=== PATIENT | male | born 1960 | race Caucasian/White ===

== ENCOUNTER 2022-02-18 10:21 | Observation (INO) | payer SELFPAY ==
[2022-02-18] VITALS (12 sets, daily range): BP systolic 138–163; BP diastolic 99–135; PULSE 99–129; RESP 18–28; TEMP 36.4–36.9; O2SAT 93–99; BMI 24.2; BMI 22.6
--- NOTE | 2022-02-18 11:04 | RAD_ITS ---
STUDY: X-RAY CHEST REASON FOR EXAM: Male, 61 years old. Respiratory distress, expiratory wheezing TECHNIQUE: AP and lateral views of the chest. COMPARISON: None. FINDINGS: EKG electrodes are seen. There is hyperinflation of the lungs consistent with chronic obstructive lung disease (COPD). There is no demonstrated pleural abnormality. Normal size heart. Normal mediastinum and cynthia. Normal visualized pulmonary arteries. There is atherosclerotic tortuosity of the aortic arch and descending thoracic aorta. There are diffuse degenerative changes of the visualized thoracic spine. Normal visualized ribs, clavicles, and shoulders. There is no demonstrated abnormality of the visualized soft tissue structures of the upper abdomen. RAD/Chest PA and Lateral IMPRESSION: Hyperinflation. Decreased bronchovascular markings suggestive of a emphysematous change. Electronically Signed: Bolivar Rose MD at 12:18 EDT ,
--- NOTE | 2022-02-18 11:04 | EKG12_ITS ---
Test Reason : SOB Blood Pressure : / mmHG Vent. Rate : 116 BPM Atrial Rate : 116 BPM P-R Int : 130 ms QRS Dur : 088 ms QT Int : 328 ms P-R-T Axes : 074 047 069 degrees QTc Int : 455 ms Sinus tachycardia Otherwise normal ECG Confirmed by EZEQUIEL BUSCH, EB ([id number]), city editor ALBERTA MAGUIRE ([id number]) on 02/21/2022 9:27:23 AM Referred By: JESÚS Confirmed By:EB NIEVES MD
[2022-02-18] MEDS: Albuterol 2.5 MG/3 ML VIAL.NEB. INHALATION ×3 (11:24→12:41)
[2022-02-18] MEDS: Ipratropium/Albuterol Sulfate 3 ML AMPUL.NEB INHALATION ×2 (11:24→19:25)
[2022-02-18 11:27] LABS: Absolute Lymphocyte Count 1.05 X10^3/uL (0.83-4.51); Absolute Neutrophil Count 5.1 X10^3/uL (2.0-7.7); Basophil# 0.04 X10^3/uL; Basophil% 0.6 % (0-1); Eosinophil# 0.02 X10^3/uL; Eosinophils% 0.3 % (0-5); Hemoglobin 18.3 g/dL (13.0-16.5); Lymphocyte # 1.05 X10^3/ul (0.83-4.51); Lymphocyte % 15.7 % (19-41); Mean Corp Hgb Conc 33.9 g/dL (32-36); Mean Corpuscular Hgb 30.5 pg (27.0-32.0); Mean Platelet Vol. 9.4 fl (6.2-12.0); Monocyte% 7.5 % (0-10); NRBC Flagged by Analyzer 0 % (0-5); Neutrophil # 5.07 X10^3/uL (2.7-7.7); Neutrophil % 75.6 % (47-70); POSITIVE COUNT YES; RBC Distribution Width CV 13.1 % (11.6-14.6); RBC Distribution Width SD 42.6 fl (35.1-43.9); White Blood Count 6.7 K/mm3 (4.4-11.0)
--- NOTE | 2022-02-18 11:29 | ED.VIS.DYS ---
HPI History of Present Illness Chief Complaint: Shortness of Breath Informant: patient Onset/Context/Timing Onset: Weeks Context: gradual Timing: Continuous and Waxes and wanes Quality: Positive for Dyspnea on exertion and Wheezing; Negative for Orthopnea and PND Current Severity: Moderate Maximum Severity: Severe Worsened by: - (Walking across the room) Relieved by: Nothing Associated Symptoms cough and clear sputum; Negative for rhinorrhea, post nasal drip, ear pain, fever, sore throat, subjective, chills, sweats or other Chest Pain: Positive for None Narrative Narrative: Patient is a 61-year-old male who was a smoker of approximately 1/2 pack/day since age of 30. He quit 3 months ago. He has not seen a doctor since the age of 6. He is on no medications and has no allergies to his knowledge. He states his friend encouraged him to come in because he appeared in distress. He is agreeable. He has not been vaccinated. He states he did not get vaccinated he was concerned to take his lungs problem worse. He denies history of leg pain, swelling discoloration. He denies night sweats or weight loss. He denies GI symptoms. He states he is concerned because he is not able to care for himself because he cannot walk across the room. He has to sit on a milk cart to take a shower because he is fearful that will fall. He has not been eating much. PE Risk Factors: Negative for Cancer, OCP + Smoking + > 35, Prior DVT or PE, Recent immobilization, Recent surgery and Recent travel Prior similar symptoms: No Recent Illness/Hospitalization: No PFSH PFSH Medical History (Updated 02/18/22 @ 14:[address] Mike Peralta MD) Hx of bronchitis Medical History no medical history no medical history Home Medications NK 02/18/22 [History Last Taken Unknown] Allergy/AdvReac Type Severity Reaction Status Date / Time Penicillins AdvReac NEEDS Verified 02/18/22 11:31 FOLLOW-UP Surgical History no surgical history no surgical history Social History (Updated 02/18/22 @ 11:[address] Mike Peralta MD) household members: none Smoking Status: Former smoker substance use type: does not use ROS ROS ED Constitutional Constitutional ED: Denies chills, fever(s), sweats or weight loss Eyes Eyes: Denies blurry vision, change in vision or diplopia ENT ENT ED: Denies ear pain, rhinorrhea or sore throat Cardiovascular Cardiovascular: Denies chest pain, orthopnea, palpitations, paroxysmal nocturnal dyspnea or racing heartbeat Respiratory/Chest Respiratory/Chest: Reports cough, dyspnea, dyspnea on exertion and sputum; Denies orthopnea or paroxysmal nocturnal dyspnea Gastrointestinal Gastrointestinal: Denies abdominal pain, diarrhea, melena, nausea or vomiting Genitourinary Genitourinary ED: Denies dysuria, hematuria or urinary frequency Musculoskeletal Musculoskeletal: Denies arthralgias, back pain, myalgias or neck pain Integumentary Denies rash Neurologic Neurologic: Denies headache(s), paresthesias or weakness Endocrine Endocrinology: Denies polydipsia, polyphagia or polyuria Hematologic/Lymphatic Hematologic/Lymphatic: Denies easy bleeding or easy bruising EXAM Physical Exam Const Vital Signs: 02/18/22 10:23 02/18/22 11:24 02/18/22 11:35 Temperature 98.1 F Temperature Source Temporal Pulse Rate 129 H 112 H Respiratory Rate 18 26 H Respiratory Effort Short of Breath Labored Short of Breath Labored Respiratory Depth Shallow Respiratory Pattern Tachypnea Tachypnea Blood Pressure 163/135 H Blood Pressure Mean 144 Pulse Ox 97 96 Oxygen Delivery Method Room Air Room Air Positive well nourished and well developed General Appearance ED: well developed; Negative for NAD or pallor HEENT Reports TM's clear and dry mucous membranes HEENT Narrative: Nares patent. Uvula midline. No erythema or exudate posterior pharynx. atraumatic Tympanic Membrane ED: Yes TM's clear Mouth ED: Yes dry mucous membranes Mouth: dry mucous membranes Eyes PERRL and EOMs intact bilaterally General Eye ED: Negative for pale conjunctiva or scleral icterus Neck no lymphadenopathy, supple, no meningeal signs and no JVD Neck Narrative: Trachea midline. No in-store extra stridor. No carotid bruits. Resp No normal respiratory effort and No clear to auscultation bilaterally Resp Narrative: There is expiratory wheezing with extremely delayed expiratory phase. Patient is using accessory muscles. There may be slight retractions. Auscultation: wheezes and diminished lung sounds; Negative for rales or rhonchi Cardio regular rhythm, S1 normal heart sound, S2 normal heart sound and no murmurs Rate: tachycardic GI non-tender, non-distended and no masses Auscultation: normoactive bowel sounds Palpation: soft Back/Spine no CVA tenderness and normal to inspection Extremity Negative for normal to inspection Extremity Narrative: Patient has clubbing noted. General Extremety ED: Negative for edema or tenderness General Extremity: Negative for edema Neuro oriented x3 and CN's II-XII intact bilaterally Christen Coma Scale: document GCS findings Spontaneous Obeys Commands Oriented 15 Sensorium / Orientation: alert Psych mental status grossly normal Thought Process: normal thought process Skin no wounds Skin Narrative: Patient has questionable lenticular rash. Cap refill is slightly delayed. General Skin Exam: Negative for jaundice or pallor Lesions: no lesions MDM MDM MDM Narrative Medical decision making narrative: Suspect patient has exacerbation of COPD. He states he had pneumonia 25 years ago. This is in the differential as well. With him having symptoms for weeks/month doubt pulmonary embolus. He was treated with albuterol, DuoNeb, methylprednisolone and appropriate labs were obtained to assess white count, rule out anemia, assess renal function and electrolytes especially since he reports poor p.o. intake. Venous blood gas was obtained to assess for CO2 retention. Chest x-ray to evaluate for pneumonia versus COPD doubt pneumothorax. EKG was obtained to rule out acute cardiac ischemia which is unlikely. Patient did not desaturate with walking from his room to the social workers office which is approximately 50 feet however his heart rate went to 136 he had labored breathing with a rate of 32 and was in obvious distress. Feel patient has COPD that is been undiagnosed with an acute exacerbation and he will require in-hospital treatment and consultation with case management regarding appropriate discharge planning. Lab Data Attestation: I reviewed the patient's lab results. Lab results narrative: White count and differential are unremarkable. Hemoglobin is elevated most likely due to polycythemia vera secondary, 30-year history of smoking. Lactate elevated 2.2. This is in a likely due to his respiratory distress. Patient has evidence of hyponatremia. This will need a work-up since he is on no medication. Labs: Laboratory Results - last 24 hr 02/18/22 02/18/22 02/18/22 11:20 11:20 11:20 WBC 6.7 RBC 6.00 Hgb 18.3 H* Hct 54.0 MCV 90.0 MCH 30.5 MCHC 33.9 RDW Std Deviation 42.6 RDW Coeff of [place] 13.1 Plt Count MPV 9.4 Immature Gran % (Auto) 0.300 Neut % (Auto) 75.6 H Lymph % (Auto) 15.7 L [place] % (Auto) 7.5 Eos % (Auto) 0.3 Baso % (Auto) 0.6 Absolute Neuts (auto) 5.1 Absolute Lymphs (auto) 1.05 Nucleated RBC % 0 Diff Path Review May foll Platelet Estimate ADEQUATE Sodium Cancelled Potassium Cancelled Chloride Cancelled Carbon Dioxide Cancelled Anion Gap Cancelled BUN Cancelled Creatinine Cancelled Estim Creat Clear Calc Cancelled Est GFR (MDRD) Af Amer Cancelled Est GFR (MDRD) Non-Af Cancelled BUN/Creatinine Ratio Cancelled Glucose Cancelled Lactic Acid 2.2 H* Calcium Cancelled 02/18/22 11:41 WBC RBC Hgb Hct MCV MCH MCHC RDW Std Deviation RDW Coeff of [place] Plt Count MPV Immature Gran % (Auto) Neut % (Auto) Lymph % (Auto) [place] % (Auto) Eos % (Auto) Baso % (Auto) Absolute Neuts (auto) Absolute Lymphs (auto) Nucleated RBC % Diff Path Review Platelet Estimate Sodium 129 L Potassium 4.3 Chloride 95 L Carbon Dioxide 24.0 Anion Gap 10 BUN 10 Creatinine 1.21 Estim Creat Clear Calc 59.94 Est GFR (MDRD) Af Amer 78 Est GFR (MDRD) Non-Af 65 BUN/Creatinine Ratio 8.3 L Glucose 105 Lactic Acid Calcium 9.4 ABG Data ABG results: ABG 02/18/22 11:38 Specimen Type CARYN VBG pH 7.36 VBG pO2 33 VBG HCO3 24 VBG Total CO2 25 VBG O2 Sat (Calc) 60 VBG Base Excess -1 POC Mix VBG pCO2 Pt Tmp 42.3 O2 Delivery Device Room Air Radiography Chest X-Ray - ED: 2 View and Read by ED Physician (X-ray reveals hyperaeration and emphysematous changes. Cardiac silhouette size normal. Perihilar regions unremarkable. [place] structures are unremarkable. Interpreted by me at 1213) Diagnostic Testing: Clinical Impression(s) from Imaging Studies Chest X-Ray 02/18/22 11:04 IMPRESSION: Hyperinflation. Decreased bronchovascular markings suggestive of a emphysematous change. Electronically Signed: Bolivar Rose MD at 12:18 EDT , EKG Initial EKG: Attestation: I personally reviewed and interpreted this EKG as follows: Interpretation: Sinus Tachycardia (Ventricular rate is 116. OK interval is 130 ms. Cures duration 88 ms. QT duration 320 ms. [place] normal. Other than the tachycardia the EKG is unremarkable. There is motion artifact noted.) Discharge Plan Dx/Rx/DC Orders Clinical Impression: Acute exacerbation of COPD with asthma, Adult failure to thrive, Acidosis, lactic, Sinus tachycardia seen on equipment monitor phototypesetting Disposition Disposition: Acute Care Hospital [facility]
[2022-02-18] MEDS: MethylPREDNISolone 125 MG/2 ML Vial IV (11:32)
[2022-02-18 11:46] LABS: Blood Gas Specimen Type VEN; O2 Delivery Device Room Air; VBG BASE EXCESS -1 mmol/L (-1.0-3.5); VBG Bicarbonate 24 mmol/L (22-26); VBG PO2 33 mmHg (25-40); VBG SO2 60 % (50-70); VBG TCO2 25 mmol/L (23-33); VBG pCO2 42.3 mmHg (41-51); VBG pH 7.36 (7.32-7.42)
[2022-02-18 11:51] LABS: Lactic Acid 2.2 mmol/L (0.4-1.9)
[2022-02-18 11:53] LABS: Platelet Estimate ADEQUATE (ADEQ)
[2022-02-18 12:03] LABS: Anion Gap 10 (5-15); BUN 10 mg/dL (7-18); BUN/Creat Ratio 8.3 RATIO (10-20); Calcium,Total 9.4 mg/dL (8.5-10.1); Chloride 95 mmol/L (98-107); Creatinine, Serum 1.21 mg/dL (0.70-1.30); EST Glomerular Filtration Rate 65 mL/min (>60); Est Glom Filt Rate - Afr Amer 78 mL/min (>60); Estimated Creatinine Clearance 59.94 ml/min; Glucose 105 mg/dL (74-106); Potassium 4.3 mmol/L (3.5-5.1); Sodium Level 129 mmol/L (136-145)
--- NOTE | 2022-02-18 14:21 | HP.PCM.HOS_ITS ---
HPI - General General Date of Admission: 02/18/22 HPI Narrative VANIA LAM, is a 61 M with a PMH as outlined who presents via the ED on 02/18/2022 with a complaint of shortness of breath for several weeks, which had gradually worsened. He hasnt seen a doctor for many years, and has an extensive smoking history. HE quit smoking about 3 months ago. He admitted to wheezing and said his shortness of breath had worsened, with him getting concerned that he couldnt even care for himself and had to sit on milk carton to even take a shower as he was scared he might fall. He has no known diagnosis of COPD because he hasnt seen a doctor since age 6. He admitted to cough productive of clear sputum, but denied chest pain, dizziness, nausea or vomiting. Attempts to ambulate him in the ED resulted in worsening tachypnea and tachycardia, though he wasn't hypoxic. Vitals at time of review were temp of 98.1F, DE of 112, RR of 26 and BP of 163/135. HE was on room air and saturating at 96%. CBC resulted with wbc of 6.7, hb of 18.3, and due to platelet clumping, no platelet figure was provided. Chemistry showed sodium of 129 with bicarb of 24 and Cr of 1.21. CXR showed emphysematous changes. He is being admitted to be managed for probable acute COPD exacerbation. [facility] Medical History (Updated 02/18/22 @ 14:[address] Mike Peralta MD) Former smoker Hx of bronchitis Medical History no medical history Home Medications NK 02/18/22 [History Last Taken Unknown] Allergy/AdvReac Type Severity Reaction Status Date / Time Penicillins AdvReac NEEDS Verified 02/18/22 11:31 FOLLOW-UP Surgical History (Updated 02/18/22 @ 15:31 by Pam Rodriguez) History of tonsillectomy Surgical History no surgical history Social History (Updated 02/18/22 @ 11:[address] Mkie Peralta MD) household members: none Smoking Status: Former smoker substance use type: does not use ROS Constitutional Constitutional: Reports anorexia, fatigue, malaise and weakness; Denies chills or fever(s) Eyes Eyes: Denies change in vision ENT HEENT: Denies dysphagia, headache(s), nasal discharge, sinus pressure or sore throat Cardiovascular Cardiovascular: Reports dyspnea on exertion, palpitations and rapid heart rate; Denies chest pain, edema, lightheadedness, orthopnea, paroxysmal nocturnal dyspnea or syncope Respiratory/Chest Respiratory/Chest: Reports cough, dyspnea, productive cough, shortness of breath at rest, shortness of breath with exertion and wheezing; Denies excessive phlegm production or hemoptysis Gastrointestinal Gastrointestinal: Denies abdominal pain, coffee ground emesis, diarrhea, dyspepsia, nausea or vomiting Genitourinary Genitourinary: Denies burning urination Musculoskeletal Musculoskeletal: Denies arthralgias Neurologic Neurologic: Denies confusion, dizziness, focal weakness, headache(s), numbness, seizures or syncope Psychiatric Psychiatric: Denies anxiety or depression Endocrine Endocrinology: Denies change in body appearance Hematologic/Lymphatic Hematologic/Lymphatic: Denies anemia Allergic/Immunologic Allergic/Immunologic: Denies asthma Vital Signs Vital Signs Vital Signs: 02/18/22 10:23 02/18/22 11:24 02/18/22 11:35 Temperature 98.1 F Temperature Source Temporal Pulse Rate 129 H 112 H Respiratory Rate 18 26 H Respiratory Effort Short of Breath Labored Short of Breath Labored Respiratory Depth Shallow Respiratory Pattern Tachypnea Tachypnea Blood Pressure 163/135 H Blood Pressure Mean 144 Pulse Ox 97 96 Oxygen Delivery Method Room Air Room Air Weight Weight: 154 lb 12.8 oz Body Mass Index (BMI) 24.2 Physical Exam Const alert, oriented x3 and no apparent distress General Appearance: cooperative HEENT normocephalic, head/scalp atraumatic, hearing grossly normal bilaterally and moist oral mucous membranes Eyes PERRL, EOMs intact bilaterally and conjunctivae normal Neck no lymphadenopathy, supple and no JVD Resp Resp Narrative: tachypneic, diminished breath sounds bibasally, mild wheezes, no crackles. On room air. Cardio regular rhythm, S1 normal heart sound, S2 normal heart sound and no murmurs Cardio Narrative: tachycardic GI normal to inspection, nondistended, normoactive bowel sounds, soft to palpation, non-tender and non-distended Extremity normal to inspection, full ROM and no clubbing, cyanosis or edema Extremity Narrative: has extensive clubbing of all extremities Peripheral Pulses: Yes pulses 2+ throughout Skin no rashes or lesions noted and no wounds Neuro oriented x3, CN's II-XII intact bilaterally and moves all extremities Sensorium / Orientation: awake and alert Psych affect normal Results Lab / Micro Data Result Diagrams: 02/18/22 11:20 02/18/22 11:41 Labs: Laboratory Results - last 24 hr 02/18/22 11:20: WBC 6.7, RBC 6.00, Hgb 18.3 H*, Hct 54.0, MCV 90.0, MCH 30.5, MCHC 33.9, RDW Std Deviation 42.6, RDW Coeff of [place] 13.1, Plt Count , MPV 9.4, Immature Gran % (Auto) 0.300, Neut % (Auto) 75.6 H, Lymph % (Auto) 15.7 L, [place] % (Auto) 7.5, Eos % (Auto) 0.3, Baso % (Auto) 0.6, Absolute Neuts (auto) 5.1, Absolute Lymphs (auto) 1.05, Nucleated RBC % 0, Diff Path Review March, Platelet Estimate ADEQUATE 02/18/22 11:20: Sodium Cancelled, Potassium Cancelled, Chloride Cancelled, Carbon Dioxide Cancelled, Anion Gap Cancelled, BUN Cancelled, Creatinine Cancelled, Estim Creat Clear Calc Cancelled, Est GFR (MDRD) Af Amer Cancelled, Est GFR (MDRD) Non-Af Cancelled, BUN/Creatinine Ratio Cancelled, Glucose Cancelled, Calcium Cancelled 02/18/22 11:20: Lactic Acid 2.2 H* 02/18/22 11:41: Sodium 129 L, Potassium 4.3, Chloride 95 L, Carbon Dioxide 24.0, Anion Gap 10, BUN 10, Creatinine 1.21, Estim Creat Clear Calc 59.94, Est GFR (MDRD) Af Amer 78, Est GFR (MDRD) Non-Af 65, BUN/Creatinine Ratio 8.3 L, Glucose 105, Calcium 9.4 ABG Data ABG results: ABG 02/18/22 11:38 Specimen Type CARYN VBG pH 7.36 VBG pO2 33 VBG HCO3 24 VBG Total CO2 25 VBG O2 Sat (Calc) 60 VBG Base Excess -1 POC Mix VBG pCO2 Pt Tmp 42.3 O2 Delivery Device Room Air Radiology Impression Chest X-Ray 02/18/22 11:04 IMPRESSION: Hyperinflation. Decreased bronchovascular markings suggestive of a emphysematous change. Electronically Signed: Bolivar Rose MD at 12:18 EDT , Assessment & Plan Assessment/Plan (1) Acute exacerbation of COPD with asthma: (2) Adult failure to thrive: (3) Acidosis, lactic: (4) Sinus tachycardia seen on front desk monitor: PLAN: #Acute COPD exacerbation * has a strong smoking history which points towards COPD * CXR showed hyperinflation and decreased bronchovascular markings suggestive of emphysematous changes * admit to med surg * Breathing treatments bronchodilators. IV Solu-Medrol 40 mg every 8 hours as needed * hydrate gently with IVF * get baseline 2D echo to rule out any cardiac pathology * will need pulmonary function tests to officially diagnose COPD * #lactic acidosis: due to dehydration from decreased intake. Should improve with hydration #Hyponatremia * Na is 129. Likely due to decreased intake also * hydrate with IVF; if it doesnt improve, will work up further with urine electrolytes and osmolality * #Polycythemia: Hb is 18.3, likely secondary polycythemia due to undiagnosed COPD. #Sinus tachycardia: likely due to shortness of breath. Expect that will improve with treatment for COPD #Elevated blood pressure * No known diagnosis of hypertension. Blood pressure elevated in the 160s in the ED. May also be due to acute shortness of breath * IV hydralazine as needed. If it does not improve, will start oral BP meds * DVT prophylaxis: lovenox Code status: full code * Patient counseled extensively about different types of CODE STATUS including full code, DNR CCA and DNR CCA. Patient elects to be full code. Total [id number] time 16 minutes. Charges/Coding Visit Charges OBSV E&M: 52134 Initial observation care L3 Procedures Hospitalists Procedures: 95058 Advncd Care Plan 30 Min
--- NOTE | 2022-02-18 14:44 | ED.RN ---
spo2 did not drop with ambulation but hr 138 and rr up to 38/min. pt did state that hasnt been able to go that far without stopping for a month aware and decision to admit.
--- NOTE | 2022-02-18 15:10 | ECHOD_ITS ---
Reason For Study: SOB Procedure This was a 2D Doppler, Color Flow transthoracic echocardiogram. The study was technically difficult. Exam performed portable in patient room. Left Ventricle Normal LV size. Left ventricular systolic function is normal. The estimated ejection fraction is 65 %. No evidence for diastolic dysfunction. No regional wall motion abnormalities noted. Right Ventricle Normal RV size. Normal systolic function. Atria Normal left atrium. Normal right atrium. No doppler evidence for ASD. Mitral Valve There is no mitral annular calcification. Normal mitral valve. Trivial mitral valve insufficiency. Tricuspid Valve Normal tricuspid valve. Trivial tricuspid valve insufficiency. Right ventricular systolic pressure estimated to be 31 mmHg. Aortic Valve Trisinus/trileaflet aortic valve. Mild focal aortic valve calcification. Pulmonic Valve The pulmonic valve is not well visualized. Great Vessels Mildly dilated aortic root. Pericardium/Pleural No pericardial effusion. MMode/2D Measurements & Calculations LVIDd: 3.9 cm IVSd: 0.83 cm Ao root diam: 4.2 cm LVIDs: 2.5 cm LVPWd: 1.0 cm RVDd: 2.7 cm FS: 37.3 % LAV(MOD-bp): 37.3 ml LVAd ap4: 22.9 cm2 LVAd ap2: 23.1 cm2 LAV(MOD-bp) Indexed: 20.6 ml/m2 LVLd ap4: 7.9 cm LVLd ap2: 7.2 cm LAV(MOD-sp2): 42.8 ml EDV(MOD-sp4): 56.0 ml EDV(MOD-sp2): 63.2 ml LAV(MOD-sp4): 30.8 ml EDV(sp4-el): 56.5 ml EDV(sp2-el): 62.6 ml LVAs ap4: 11.8 cm2 LVAs ap2: 13.1 cm2 LVLs ap4: 6.5 cm LVLs ap2: 6.4 cm ESV(MOD-sp4): 18.8 ml ESV(MOD-sp2): 23.8 ml ESV(sp4-el): 18.4 ml ESV(sp2-el): 22.5 ml EF(MOD-sp4): 66.4 % EF(MOD-sp2): 62.4 % EF(sp4-el): 67.5 % SV(MOD-sp4): 37.2 ml SV(MOD-sp2): 39.5 ml SV(sp4-el): 38.1 ml LA dimension(2D): 3.4 cm LA A4 area: 13.2 cm2 RA A4 area: 14.4 cm2 Doppler Measurements & Calculations MV E max all: 53.1 cm/sec Lat Peak E' All: 8.3 cm/sec Med Peak E' All: 5.6 cm/sec MV A max all: 69.1 cm/sec E/E' lat: 6.4 E/E' med: 9.4 MV E/A: 0.77 Ao V2 max: 111.2 cm/sec LV V1 max: 95.7 cm/sec PA V2 max: 95.2 cm/sec Ao max P.9 mmHg LV V1 max P.7 mmHg TR max all: 266.2 cm/sec TR max P.4 mmHg ECHO/Echo Complete Interpretation Summary The study was technically difficult. Left ventricular systolic function is normal. The estimated ejection fraction is 65 %. Trivial mitral valve insufficiency. Trivial tricuspid valve insufficiency. Mild focal aortic valve calcification. Mildly dilated aortic root. Right ventricular systolic pressure estimated to be 31 mmHg. No evidence for diastolic dysfunction. Ordering Physician: Jessica Payan Performed By: Kerry Kwong RDCS
--- NOTE | 2022-02-18 15:14 | CM.ED ---
RN CM Assessment Introduced role of RN CM to patient.? Patient is alert, oriented and able?to participate in RN CM Assessment. ?Care providers, pharmacy, and demographics verified. Admit Dx: OBS for Acute COPD Exac Re-Admit: No Barriers/Issues: Patient us uninsured, No medication coverage, does not have a PCP and no medical f/u throughout lifetime. Smoker for many years and quit approx 3 months ago. Has been having some difficulty with house chores and ADLs d/t SOB with minimal exertion. PCP: None, PCP list provided. Provided resources to [facility], [facility], [facility] contact. Specialists: None [facility] Insurance: None Rx Benefit: None? LNOK: Ronnie Payne LW/HPOA: None. AD information with rack card provided and informed can complete with inpatient. Living Arrangements:?Lives alone in a SSH, 4 steps to enter home and approx 10 steps to get to the basement where the laundry is. ADL?s: Independent with ambulation and ADLs, requiring to sit on a milk crate to bathe and occasionally will need help as it has become more difficult for him to do independently d/t SOB with minimal exertion. Needs assistance with IADLs- house work. Transportation: Patient drives, did not drive self to hospital this episode. DME: None HHC: None SNF: None Goal: Home and needs TBD- may need assistance with medication cost or if DME needed. DC PLAN: Home and needs TBD. ROSANNA Munguia
[2022-02-18 15:23] LABS: Reflex Lactate? Y
[2022-02-18] MEDS: 0.9% Normal Saline 1,000 ML 125 ML IV (15:47)
[2022-02-18 16:30] LABS: Troponin-I HS 9 pg/mL (3.0-78.0)
[2022-02-18 16:46] LABS: Lactic Acid 2.6 mmol/L (0.4-1.9)
[2022-02-18 18:55] LABS: Troponin-I HS 10 pg/mL (3.0-78.0)
[2022-02-18 22:53] LABS: Troponin-I HS 10 pg/mL (3.0-78.0)
[2022-02-19] VITALS (18 sets, daily range): BP systolic 132–143; BP diastolic 83–101; PULSE 73–114; RESP 18–22; TEMP 36.3–37.2; O2SAT 95–98
[2022-02-19] MEDS: 0.9% Normal Saline 1,000 ML 125 ML IV (00:13)
[2022-02-19 05:42] LABS: Absolute Lymphocyte Count 0.65 X10^3/uL (0.83-4.51); Absolute Neutrophil Count 6.3 X10^3/uL (2.0-7.7); Basophil# 0.01 X10^3/uL; Basophil% 0.1 % (0-1); Hematocrit 43.4 % (40-54); Lymphocyte # 0.65 X10^3/ul (0.83-4.51); Lymphocyte % 8.8 % (19-41); Mean Corp Hgb Conc 34.6 g/dL (32-36); Mean Corpuscular Hgb 31.4 pg (27.0-32.0); Mean Corpuscular Volume 90.8 fL (80-94); Mean Platelet Vol. 8.5 fl (6.2-12.0); Monocyte% 5.4 % (0-10); NRBC Flagged by Analyzer 0 % (0-5); Neutrophil # 6.32 X10^3/uL (2.7-7.7); Neutrophil % 85.3 % (47-70); Platelet Count 273 K/mm3 (150-450); RBC Distribution Width CV 12.9 % (11.6-14.6); RBC Distribution Width SD 42.9 fl (35.1-43.9); Red Blood Count 4.78 M/mm3 (4.6-6.2); White Blood Count 7.4 K/mm3 (4.4-11.0)
[2022-02-19 06:06] LABS: Anion Gap 2 (5-15); BUN 10 mg/dL (7-18); BUN/Creat Ratio 12.8 RATIO (10-20); Calcium,Total 8.3 mg/dL (8.5-10.1); Chloride 100 mmol/L (98-107); Creatinine, Serum 0.78 mg/dL (0.70-1.30); EST Glomerular Filtration Rate 107 mL/min (>60); Est Glom Filt Rate - Afr Amer 129 mL/min (>60); Estimated Creatinine Clearance 95.09 ml/min; Glucose 133 mg/dL (74-106); Potassium 5.4 mmol/L (3.5-5.1); Sodium Level 130 mmol/L (136-145)
[2022-02-19] MEDS: Ipratropium/Albuterol Sulfate 3 ML AMPUL.NEB INHALATION ×4 (07:39→18:31)
--- NOTE | 2022-02-19 08:40 | NURSING ---
pt refused kayexelate at this time requesting he takes it after breakfast.
[2022-02-19] MEDS: Enoxaparin 40 MG/0.4 ML Syringe SC (09:55)
[2022-02-19] MEDS: Sodium Polystyrene Sulfonate 15 GM/60 ML UDC 30 GM PO (09:55)
--- NOTE | 2022-02-19 11:36 | PN.HOSP_ITS ---
Subjective Subjective Patient seen and examined. He feels much better and has no active complaints. Review of systems is otherwise negative. His breathing has improved significantly Objective Data Objective Data Vital Signs: Vital Signs Temp Pulse Resp BP Pulse Ox 97.4 F L 85 18 138/93 H 98 02/19/22 08:29 02/19/22 08:29 02/19/22 08:33 02/19/22 08:29 02/19/22 08:29 Oxygen Delivery Method Room Air Weight: 149 lb 0.52 oz Body Mass Index (BMI) 22.6 Intake & Output: Intake and Output for Last 24 Hours 02/17/22 02/18/22 02/19/22 23:59 23:59 23:59 Intake Total 1700 / 1700 1600.00 / 1600.00 Output Total 1200 / 1200 Balance 1700 / 1300 400.00 / 400.00 Lab / Micro Data Result Diagrams: 02/19/22 05:30 02/19/22 05:30 Labs: Laboratory Results - last 24 hr 02/18/22 11:20: WBC 6.7, RBC 6.00, Hgb 18.3 H*, Hct 54.0, MCV 90.0, MCH 30.5, MCHC 33.9, RDW Std Deviation 42.6, RDW Coeff of Carroll 13.1, Plt Count , MPV 9.4, Immature Gran % (Auto) 0.300, Neut % (Auto) 75.6 H, Lymph % (Auto) 15.7 L, [place] % (Auto) 7.5, Eos % (Auto) 0.3, Baso % (Auto) 0.6, Absolute Neuts (auto) 5.1, Absolute Lymphs (auto) 1.05, Nucleated RBC % 0, Diff Path Review March, Platelet Estimate ADEQUATE 02/18/22 11:20: Lactic Acid 2.2 H* 02/18/22 11:41: Sodium 129 L, Potassium 4.3, Chloride 95 L, Carbon Dioxide 24.0, Anion Gap 10, BUN 10, Creatinine 1.21, Estim Creat Clear Calc 59.94, Est GFR (MDRD) Af Amer 78, Est GFR (MDRD) Non-Af 65, BUN/Creatinine Ratio 8.3 L, Glucose 105, Calcium 9.4 02/18/22 15:45: Lactic Acid 2.6 H* 02/18/22 15:45: Troponin I High Sens 9 02/18/22 18:03: Troponin I High Sens 10 02/18/22 22:00: Troponin I High Sens 10 02/19/22 05:30: WBC 7.4, RBC 4.78, Hgb 15.0, Hct 43.4, MCV 90.8, MCH 31.4, MCHC 34.6, RDW Std Deviation 42.9, RDW Coeff of Carroll 12.9, Plt Count 273, MPV 8.5, Immature Gran % (Auto) 0.400, Neut % (Auto) 85.3 H, Lymph % (Auto) 8.8 L, [place] % (Auto) 5.4, Eos % (Auto) 0.0, Baso % (Auto) 0.1, Absolute Neuts (auto) 6.3, Absolute Lymphs (auto) 0.65 L, Nucleated RBC % 0 02/19/22 05:30: Sodium 130 L, Potassium 5.4 H, Chloride 100, Carbon Dioxide 28.0, Anion Gap 2 L, BUN 10, Creatinine 0.78, Estim Creat Clear Calc 95.09, Est GFR (MDRD) Af Amer 129, Est GFR (MDRD) Non-Af 107, BUN/Creatinine Ratio 12.8, Glucose 133 H, Calcium 8.3 L ABG Data ABG results: ABG 02/18/22 11:38 Specimen Type CARYN VBG pH 7.36 VBG pO2 33 VBG HCO3 24 VBG Total CO2 25 VBG O2 Sat (Calc) 60 VBG Base Excess -1 POC Mix VBG pCO2 Pt Tmp 42.3 O2 Delivery Device Room Air Radiography Diagnostic Testing: Radiology Impression Chest X-Ray 02/18/22 11:04 IMPRESSION: Hyperinflation. Decreased bronchovascular markings suggestive of a emphysematous change. Electronically Signed: Bolivar Rose MD at 12:18 EDT , Echocardiogram 02/18/22 15:10 Interpretation Summary The study was technically difficult. Left ventricular systolic function is normal. The estimated ejection fraction is 65 %. Trivial mitral valve insufficiency. Trivial tricuspid valve insufficiency. Mild focal aortic valve calcification. Mildly dilated aortic root. Right ventricular systolic pressure estimated to be 31 mmHg. No evidence for diastolic dysfunction. Ordering Physician: Jessica Payan Performed By: Kerry Kwong RDCS Physical Exam Const alert, oriented x3 and no apparent distress General Appearance: cooperative HEENT normocephalic, head/scalp atraumatic, hearing grossly normal bilaterally and moist oral mucous membranes Head and Scalp: normocephalic Eyes PERRL, EOMs intact bilaterally and conjunctivae normal Neck no lymphadenopathy, supple and no JVD Resp Resp Narrative: tachypneic, diminished breath sounds bibasally, mild wheezes, no crackles. On room air. Cardio regular rate, regular rhythm, S1 normal heart sound, S2 normal heart sound and no murmurs GI normal to inspection, nondistended, normoactive bowel sounds, soft to palpation, non-tender and non-distended Extremity normal to inspection, full ROM and no clubbing, cyanosis or edema Extremity Narrative: has extensive clubbing of all extremities Peripheral Pulses: Yes pulses 2+ throughout Skin no rashes or lesions noted and no wounds Neuro oriented x3, CN's II-XII intact bilaterally and moves all extremities Sensorium / Orientation: awake and alert Psych affect normal Assessment & Plan Assessment/Plan (1) Acute exacerbation of COPD with asthma: (2) Adult failure to thrive: (3) Acidosis, lactic: (4) Sinus tachycardia seen on circuitry negative inspector: PLAN: #Acute COPD exacerbation * feels much better today * on breathing treatment wtih bronchodilators * titrate oxygen to maintain sats >90% * 2D echo:: * will need follow up with pulmo on outpatient basis to have a formal PFT test. * Breathing treatments bronchodilators. IV Solu-Medrol 40 mg every 8 hours as needed * * #lactic acidosis: went up slightly but patient is sable. Will monitor. #Hyperkalemia: Potassium is 5.4. Will give Kayexalate and trend. #Hyponatremia * Na is up to 130 * #Polycythemia: resolved. Was likely due to dehydration. Hb is down to 15 now. #Sinus tachycardia: resolved. #Elevated blood pressure * No known diagnosis of hypertension. Blood pressure elevated in the 160s in the ED. May also be due to acute shortness of breath * IV hydralazine as needed. If it does not improve, will start oral BP meds * DVT prophylaxis: lovenox Code status: full code * Charges/Coding Visit Charges Inpatient E&M: 05300 Subs Hosp L2
[2022-02-19 13:04] LABS: Pathologist Review Reviewed
--- NOTE | 2022-02-19 13:04 | CASEMGMT ---
RADU NUNEZ and COMMUTER PILOT in to pt room. Discussed dc planning. Pt has not yet worked with therapy d/t his son visiting, therapy to come back to work with pt. Pt does not feel at this time he may need any homegoing services but can confirm after therapy session. Pt on RA. RADU NUNEZ to follow.
--- NOTE | 2022-02-19 13:17 | CASEMGMT ---
Social Work Note MAX updated that pt had questions regarding Medicaid and Social Security. MAX and RN CM in to speak with pt. SW introduced self and role at [facility]. Pt states that his son Nghia who resides in [place] was just at [facility] but states he left to began his [address] back to [place]. Pt states that he and his son have been in contact with [employer], [employer], [employer], and was informed that the tungsten refiner at [facility] will be the best person that can assist pt in getting Medicaid. SW informed pt that this worker can provide him with Medicaid Application and if he completes application while at [facility], then this worker can fax in application to [facility]. Pt states well that is a start. SW provided pt with Medicaid Application. SW also spoke with pt regarding Social Security. SW informed pt that there is a Social Security Office in [place] and provided pt with contact information for Social Security Office. SW spoke with pt about his previous functioning. Pt states that he has noticed that he has been short of breath for some time now. 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 Pt states that he was on unemployment and had a good savings to live off of. Pt states that he has food in his home, still drives and has a vehicle, and states that he has running water, electric, etc in the home. Pt states that he is a little behind in his rent but states that he will be caught up in a week. Pt states that he has lived at his current place for six years and his landlord is helping him out. Pt states that he states he feels better and that his shortness of breath has improved. 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 Pt states that his son went to his home and did a good cleaning and pt states he plans on keeping it clean when he returns home. MAX provided pt with additional financial resources including HCAP application, Prescription assistance, and [employer]. Per previous notes, pt was also provided information on Kayleigh Gonsalez, [employer] and [facility] contact. Pt denied additional needs or concerns at this time. Gina Carmen REGISTERED NURSE BONE MARROW TRANSPLANT, PRINTED CIRCUIT BOARD ASSEMBLY REPAIRER
[2022-02-19] MEDS: 0.9% Saline Lock 10 ML Syringe IV ×2 (14:25→21:41)
--- NOTE | 2022-02-19 14:42 | CASEMGMT ---
Pt screened with [facility] Palliative Care Screening Tool due to COPD exac, pt did not meet criteria.
[2022-02-20] VITALS (12 sets, daily range): BP systolic 137–147; BP diastolic 94–104; PULSE 74–111; RESP 16–20; TEMP 36.4–37.1; O2SAT 84–99
[2022-02-20] MEDS: 0.9% Saline Lock 10 ML Syringe IV (05:28)
[2022-02-20 06:47] LABS: Absolute Lymphocyte Count 0.62 X10^3/uL (0.83-4.51); Absolute Neutrophil Count 7.6 X10^3/uL (2.0-7.7); Hematocrit 43.4 % (40-54); Hemoglobin 14.6 g/dL (13.0-16.5); Lymphocyte # 0.62 X10^3/ul (0.83-4.51); Lymphocyte % 7.1 % (19-41); Mean Corp Hgb Conc 33.6 g/dL (32-36); Mean Corpuscular Hgb 31.3 pg (27.0-32.0); Mean Corpuscular Volume 92.9 fL (80-94); Mean Platelet Vol. 9.1 fl (6.2-12.0); Monocyte# 0.44 X10^3/uL; NRBC Flagged by Analyzer 0 % (0-5); Neutrophil # 7.64 X10^3/uL (2.7-7.7); Platelet Count 280 K/mm3 (150-450); RBC Distribution Width CV 13.2 % (11.6-14.6); RBC Distribution Width SD 44.8 fl (35.1-43.9); Red Blood Count 4.67 M/mm3 (4.6-6.2); White Blood Count 8.8 K/mm3 (4.4-11.0)
[2022-02-20 07:11] LABS: Anion Gap 3 (5-15); BUN 10 mg/dL (7-18); BUN/Creat Ratio 13.4 RATIO (10-20); Calcium,Total 8.4 mg/dL (8.5-10.1); Chloride 101 mmol/L (98-107); Creatinine, Serum 0.74 mg/dL (0.70-1.30); EST Glomerular Filtration Rate 113 mL/min (>60); Est Glom Filt Rate - Afr Amer 137 mL/min (>60); Estimated Creatinine Clearance 100.23 ml/min; Glucose 140 mg/dL (74-106); Potassium 4.1 mmol/L (3.5-5.1); Sodium Level 136 mmol/L (136-145)
[2022-02-20] MEDS: Ipratropium/Albuterol Sulfate 3 ML AMPUL.NEB INHALATION (07:11)
--- NOTE | 2022-02-20 09:36 | DS.PCM_ITS ---
Providers Date of Admission: 02/18/22 Primary Care Physician: No Primary Care Phys Reason For Visit: ACUTE COPD EXACERBATION Diagnosis Discharge Diagnosis (1) Acute exacerbation of COPD with asthma: Status: Chronic Code(s): J44.1 - Chronic obstructive pulmonary disease with (acute) exacerbation; J45.901 - Unspecified asthma with (acute) exacerbation (2) Adult failure to thrive: Status: Acute Code(s): R62.7 - Adult failure to thrive (3) Acidosis, lactic: Status: Acute Code(s): E87.2 - Acidosis (4) Sinus tachycardia seen on nurse monitoring: Status: Acute Code(s): R00.0 - Tachycardia, unspecified Medications at Discharge Home Medications albuterol sulfate 1 inh INHALATION Q6H PRN #8.5 g 02/20/22 prednisone 40 mg PO DAILY #10 tab 02/20/22 tiotropium bromide 1 cap INHALATION DAILY #30 inh 02/20/22 Hospital Course Operations None Procedures 2-D Echocardiogram Summary of Care Provided Minutes Spent on Discharge: 40 Hospital Course: VANIA LAM, is a 61 M with a H as outlined who presents via the ED on 02/18/2022 with a complaint of shortness of breath for several weeks, which had gradually worsened. He hasnt seen a doctor for many years, and has an extensive smoking history. HE quit smoking about 3 months ago. He admitted to wheezing and said his shortness of breath had worsened, with him getting concerned that he couldnt even care for himself and had to sit on milk carton to even take a shower as he was scared he might fall. He has no known diagnosis of COPD because he hasnt seen a doctor since age 6. He admitted to cough productive of clear sputum, but denied chest pain, dizziness, nausea or vomiting. Attempts to ambulate him in the ED resulted in worsening tachypnea and tachycardia, though he wasn't hypoxic. Vitals at time of review were temp of 98.1F, MN of 112, RR of 26 and BP of 163/135. HE was on room air and saturating at 96%. CBC resulted with wbc of 6.7, hb of 18.3, and due to platelet clumping, no platelet figure was provided. Chemistry showed sodium of 129 with bicarb of 24 and Cr of 1.21. CXR showed emphysematous changes. He was admitted to be managed for probable acute COPD exacerbation. He was started on IV solumedrol, as well as breathing treatment with bronchodilators. His shortness of breath improved and he felt much better. He had 2D echo which showed EF of 65%, with RVSP of 31mmHg and normal LV systolic function. He remained stable and was discharged home on 02/20/2022 on PO prednisone 40mg daily x 5 days as well as an albuterol inhaler. He is to follow up with his PCP and was referred to pulmonology for formal PFTs to establish COPD diagnosis. Patient was seen and examined prior to discharge. He felt much better and had no active complaints. Review of systems was otherwise negative. Labs and vitals reviewed. Home meds reviewed and reconciled. Physical Exam Const alert, oriented x3 and no apparent distress General Appearance: cooperative, comfortable and well kempt Orientation / Consciousness: awake HEENT normocephalic, head/scalp atraumatic, hearing grossly normal bilaterally and moist oral mucous membranes Eyes PERRL, EOMs intact bilaterally and conjunctivae normal Neck no lymphadenopathy, supple and no JVD Resp normal respiratory effort, no retractions, no use of accessory muscles and clear to auscultation bilaterally Cardio regular rate, regular rhythm, S1 normal heart sound, S2 normal heart sound and no murmurs GI normal to inspection, nondistended, normoactive bowel sounds, soft to palpation, non-tender and non-distended Extremity normal to inspection, full ROM and no clubbing, cyanosis or edema Extremity Narrative: has extensive clubbing of all extremities Skin no rashes or lesions noted and no wounds Neuro oriented x3, CN's II-XII intact bilaterally and moves all extremities Sensorium / Orientation: awake and alert Psych affect normal Weight / BMI Weight Weight: 149 lb 0.52 oz Body Mass Index (BMI) 22.6 ABG / Lab / Microbiology Data Result Diagrams: 02/20/22 05:30 02/20/22 05:30 Laboratory: Laboratory Results - last 24 hr 02/18/22 11:20: Diff Path Review Reviewed 02/20/22 05:30: WBC 8.8, RBC 4.67, Hgb 14.6, Hct 43.4, MCV 92.9, MCH 31.3, MCHC 33.6, RDW Std Deviation 44.8 H, RDW Coeff of Carroll 13.2, Plt Count 280, MPV 9.1, Immature Gran % (Auto) 0.900, Neut % (Auto) 87.0 H, Lymph % (Auto) 7.1 L, [place] % (Auto) 5.0, Eos % (Auto) 0.0, Baso % (Auto) 0.0, Absolute Neuts (auto) 7.6, Absolute Lymphs (auto) 0.62 L, Nucleated RBC % 0 02/20/22 05:30: Sodium 136, Potassium 4.1, Chloride 101, Carbon Dioxide 32.0, Anion Gap 3 L, BUN 10, Creatinine 0.74, Estim Creat Clear Calc 100.23, Est GFR (MDRD) Af Amer 137, Est GFR (MDRD) Non-Af 113, BUN/Creatinine Ratio 13.4, Glucose 140 H, Calcium 8.4 L Radiography Diagnostic Testing: Radiology Impression Echocardiogram 02/18/22 15:10 Interpretation Summary The study was technically difficult. Left ventricular systolic function is normal. The estimated ejection fraction is 65 %. Trivial mitral valve insufficiency. Trivial tricuspid valve insufficiency. Mild focal aortic valve calcification. Mildly dilated aortic root. Right ventricular systolic pressure estimated to be 31 mmHg. No evidence for diastolic dysfunction. Ordering Physician: Jessica Payan Performed By: Kerry Kwong RDCS D/C Instructions Discharge Diet: No restrictions Discharge Activity: Return to Normal Activity Weight Bearing Status: Weight bearing as tolerated Call your doctor if you observe: Fever of 101 or Higher, Shortness of breath and Chest pain Meaningful Use Info Meaningful Use Diagnoses (Choose all that apply): None applicable Discharge Plan Admission Admit Date/Time: 02/18/22 14:35 Primary Reason for Your Visit: acute COPD exacerbation Attending Provider: Jessica Payan Primary Care Provider: Care Physician,No Primary Discharge Orders/Prescriptions Prescriptions: New prednisone 20 mg tablet 40 mg PO DAILY Qty: 10 RF: 0 tiotropium bromide 18 mcg capsule, w/inhalation device 1 cap inhalation DAILY Qty: 30 RF: 1 albuterol sulfate 90 mcg/actuation HFA aerosol inhaler 1 inh inhalation Q6H PRN (Reason: shortness of breath or wheezing) Qty: 8.5 RF: 1 Referrals / Follow Up: Antoni Estes DO [STAFF PHYSICIAN] - Within 2 Weeks (see to establish pulmonology care) Flower William MD [STAFF PHYSICIAN] - Within 2 Weeks (see to establish PCP care) Care Physician,No Primary [Primary Care Provider] - Disposition Disposition (needs filled in before D/C Order can be placed): Home, Self Care Charges/Coding Visit Charges Inpatient E&M: 16139 Disch Hosp
--- NOTE | 2022-02-20 10:28 | EKG12_ITS ---
Test Reason : TACHY Blood Pressure : / mmHG Vent. Rate : 106 BPM Atrial Rate : 106 BPM P-R Int : 118 ms QRS Dur : 082 ms QT Int : 334 ms P-R-T Axes : 078 045 057 degrees QTc Int : 443 ms Sinus tachycardia with occasional and consecutive Premature ventricular complexes Abnormal ECG No previous ECGs available Confirmed by EZEQUIEL BUSCH, EB ([id number]), editorial clerk ALBERTA MAGUIRE ([id number]) on 02/25/2022 10:49:41 AM Referred By: REGAN Confirmed By:EB NIEVES MD
[2022-02-20] MEDS: Metoprolol(XL)Succ 25 MG Tablet PO (10:51)
--- NOTE | 2022-02-20 11:42 | CASEMGMT ---
Addendum entered by Cassidy Portillo 02/20/22 13:41: TC to [facility], spoke with Mathew. He states that there is a reduced payment application that he can send. If patient completes it, he can be set up with O2 today. He states it requires a bank account number or credit card number but states this will not be billed. It is needed to process the application. Printed lisbeth off and provided to patient for completion. Addendum entered by Cassidy Portillo 02/20/22 13:06: Pt qualifies for O2 with exertion. RADU NUNEZ in to pt room, pt states he has no way to pay for the O2. He again states that his friends and family are working to provide funds, but this is not something that can be done today or even this week. Hospitalist updated. RADU NUNEZ will continue to work on options for pt. Original Note: RADU NUNEZ notified that pt meds are approx $700. TC to pharmacy, spoke with Marilu breakdown of cost given. Notified hospitalist of spiriva cost of $566. Med to be followed up on as outpt with pulm for assist. RADU NUNEZ in to pt room, made pt aware of cost of approx $75. He states he cannot afford this at this time. He states going forward, family can assist him but not now. Pt has resources for assistance. CM used RX assist. Notified hospitalist. All meds to be used for this service. TC to Cici in pharmacy, she is aware. Tubed copy of Rx assist and requested meds be delivered to pt room. Pt declines any needs for HHC at this time.
--- NOTE | 2022-02-20 12:36 | CASEMGMT ---
Addendum entered by Gina Carmen 02/20/22 14:52: SW back in to speak with pt. SW asked pt if he had completed Medicaid Application. Pt states that he thinks his son called Medicaid but willing to complete application. SW received completed Medicaid Application. SW faxed Medicaid Application to [facility]. SW provided original back to pt. Original Note: Social Work Note SW updated that pt had questions regarding HCAP application. SW in to speak with pt. SW answered pt's questions. Pt provided this worker with completed HCAP application. SW sent HCAP application to [facility]. Gina Carmen CRITICAL CARE SPECIALIST, PROGRAM MANAGER ENVIRONMENTAL PLANNING
--- NOTE | 2022-02-21 07:50 | CASEMGMT ---
Late entry for 02/20/2022 at 1507- Emailed application for reduced payment to Mathew at [facility]. Faxed [facility] order for O2, Mathew aware portable tank taken from stock. Provided Mayelin nurse pox to give to pt.
--- NOTE | 2022-02-21 08:55 | CASEMGMT ---
TC to [facility] to confirm pt O2 was set up at the home yesterday. Mathew confirmed this.
== END 2022-02-20 16:32 | disposition home or self-care (01) ==
LOC: ED 14:07 → MS3 16:13
PROVIDERS: Admitting Provider Student in an Organized Health Care Education/Training Program; Emergency Provider Emergency Medicine; Visit Provider Student in an Organized Health Care Education/Training Program
DX: J44.1 Chronic obstructive pulmonary disease with (acute) exacerbation (principal); E87.1 Hypo-osmolality and hyponatremia; R00.0 Tachycardia, unspecified; R62.7 Adult failure to thrive; Z87.891 Personal history of nicotine dependence; D75.1 Secondary polycythemia; R03.0 Elevated blood-pressure reading, without diagnosis of hypertension; E87.2 Acidosis; E87.5 Hyperkalemia
CPT/HCPCS: 36415; 71046; 80048; 82803; 83605; 84484; 85025; 93005; 93306; 94640; 96361; 96372; 96374; 96376; 97165; 99218; 99251; 99285; J7030; A4216; G0378; G0463

== ENCOUNTER → 2022-04-11 | Outpatient (CLI) | payer MEDICAID, SELFPAY ==
--- NOTE | 2022-04-11 14:06 | PFTCOMP ---
COMPLETE PULMONARY FUNCTION TEST INTERPRETATION Brief HPI: Patient is a 61-year-old male, currently under the care of myself, who presents to [facility] for complete pulmonary function tests secondary to diagnosis of dyspnea. Respiratory therapist reports good effort and reproducible results. Interpretation: Forced expiration spirometry shows a very severe large airways obstructive ventilatory defect with an FEV1 of 32% predicted. There is no significant bronchodilator response by strict ATS criteria. Spirograms are of good quality and plateau slowly, indicating slowly emptying areas of the lungs. The respiratory flow volume loop shows decreased expiratory flow rates at all lung volumes consistent with airway obstruction. Lung volumes by body plethysmography show a normal total lung capacity at 5.96 L, 101% predicted. FRC and RV are elevated out of proportion. Lung volume measurements are consistent with air-trapping. Diffusion capacity by carbon monoxide is decreased at 58% predicted. The airway resistance is elevated. No previous pulmonary function tests were available for review. Impression: Irreversible very severe large airways obstructive ventilatory defect, resulting in air trapping, and a symmetric reduction in diffusing capacity in a pattern consistent with COPD
== END | disposition home or self-care (01) ==
LOC: PSN 10:47
PROVIDERS: Referring Provider Internal Medicine Critical Care Medicine; Visit Provider Internal Medicine Critical Care Medicine
DX: R06.00 Dyspnea, unspecified (principal)
CPT/HCPCS: 94060; 94726; 94729

== ENCOUNTER → 2022-04-16 | Outpatient (CLI) | payer MEDICAID, SELFPAY ==
[2022-04-16 11:37] VITALS: PULSE 101; PULSE 102; PULSE 104; PULSE 105; PULSE 88; PULSE 93; PULSE 96; O2SAT 91; O2SAT 92; O2SAT 93; O2SAT 94; O2SAT 96; O2SAT 97; O2SAT 98
--- NOTE | 2022-04-17 14:12 | PCM.PSN.6M ---
PSN 6 Minute Walk Test 6 Minute Walk Test 6 Minute Walk Test: 6 Minute Walk Test PSN:6-Minute Walk Test Start: 04/16/22 11:37 Freq: Status: Active Protocol: [id number] Document 04/16/22 11:37 ERIN (Rec: 04/16/22 11:40 ERIN [id number]) 6 Minute Walk Test Date Performed 04/16/22 Time Performed 11:15 Height 5 ft 7 in Weight: 72.575 kg Weight in Pounds 160.[address]: Neel Car Assistive device used: None Pre-test Oxygen Delivery Method Room Air Pulse Ox (%) 98 Pulse Rate (60-100 beats/min) 88 Dyspnea Jonh Scale (0-10) 2 Exertion Jonh Scale (6-20) 6 1st minute Oxygen Delivery Method Room Air Pulse Ox (%) 96 Pulse Rate (60-100 beats/min) 101 H 2nd minute Oxygen Delivery Method Room Air Pulse Ox (%) 93 Pulse Rate (60-100 beats/min) 104 H 3rd minute Oxygen Delivery Method Room Air Pulse Ox (%) 92 Pulse Rate (60-100 beats/min) 96 4th minute Oxygen Delivery Method Room Air Pulse Ox (%) 94 Pulse Rate (60-100 beats/min) 105 H 5th minute Oxygen Delivery Method Room Air Pulse Ox (%) 97 Pulse Rate (60-100 beats/min) 102 H 6th minute Oxygen Delivery Method Room Air Pulse Ox (%) 91 Pulse Rate (60-100 beats/min) 105 H Dyspnea Jonh Scale (0-10) 4 Exertion Jonh Scale (6-20) 11 Post-test Oxygen Delivery Method Room Air Pulse Ox (%) 97 Pulse Rate (60-100 beats/min) 93 Full Laps Walked 13 Partial Lap, Number of Tiles Walked 0 Total Distance Walked (ft) 767 Interpretation Interpretation: The patient ambulated 767 feet over the course of 6 minutes beginning on room air without assistive devices. Pretesting oxygen saturation was noted to be 98% on room air. With ambulation, the tariq oxygen saturation was 91%. This represents a significant exertional oxygen desaturation, consistent with a pulmonary limitation to exercise tolerance. Recommendations Recommendations: There is no indication for the use of supplemental oxygen at this time. However, close interval follow-up is recommended, given the degree of oxygen desaturation noted during this study.
== END | disposition home or self-care (01) ==
LOC: PSN 11:12
PROVIDERS: Visit Provider Internal Medicine Critical Care Medicine
DX: R06.00 Dyspnea, unspecified (principal)
CPT/HCPCS: 94618

== ENCOUNTER → 2022-08-21 | Outpatient (CLI) | payer MEDICAID, SELFPAY ==
[2022-08-21 12:45] LABS: Absolute Lymphocyte Count 1.13 X10^3/uL (0.83-4.51); Absolute Neutrophil Count 4.9 X10^3/uL (2.0-7.7); Basophil# 0.05 X10^3/uL; Basophil% 0.7 % (0-1); Eosinophil# 0.18 X10^3/uL; Eosinophils% 2.6 % (0-5); Hematocrit 49.4 % (40-54); Hemoglobin 15.8 g/dL (13.0-16.5); Lymphocyte # 1.13 X10^3/ul (0.83-4.51); Lymphocyte % 16.1 % (19-41); Mean Corpuscular Hgb 30.8 pg (27.0-32.0); Mean Corpuscular Volume 96.3 fL (80-94); Mean Platelet Vol. 9.5 fl (6.2-12.0); Monocyte# 0.74 X10^3/uL; Monocyte% 10.6 % (0-10); NRBC Flagged by Analyzer 0 % (0-5); Neutrophil # 4.86 X10^3/uL (2.7-7.7); Neutrophil % 69.4 % (47-70); Platelet Count 312 K/mm3 (150-450); RBC Distribution Width CV 12.6 % (11.6-14.6); RBC Distribution Width SD 45.1 fl (35.1-43.9); Red Blood Count 5.13 M/mm3 (4.6-6.2)
[2022-08-21 13:02] LABS: Hemoglobin A1c 5.6 % (3.8-5.6)
[2022-08-21 13:08] LABS: ALB/GLOB Ratio 0.7 RATIO (0.9-2.4); AST(SGOT) 28 U/L (15-37); Alanine Aminotransfer ALT/SGPT 33 U/L (16-61); Albumin, Serum 3.5 g/dL (3.2-5.0); Alkaline Phosphatase 86 U/L (45-117); Anion Gap 8 (5-15); BUN 12 mg/dL (7-18); BUN/Creat Ratio 10.8 RATIO (10-20); Calcium,Total 9.3 mg/dL (8.5-10.1); Chloride 101 mmol/L (98-107); Cholesterol 180 mg/dL (200); Creatinine, Serum 1.11 mg/dL (0.70-1.30); EST Glomerular Filtration Rate 71 mL/min (>60); Est Glom Filt Rate - Afr Amer 86 mL/min (>60); Globulin 4.7 g/dL (2.2-4.2); Glucose 111 mg/dL (74-106); High Density Lipoprotein 73 mg/dL; Potassium 5.1 mmol/L (3.5-5.1); Protein, Total 8.2 g/dL (6.4-8.2); Sodium Level 135 mmol/L (136-145); Thyroid Stim Hormone (TSH) 1.29 uIU/mL (0.358-3.74); Triglycerides 72 mg/dL; Very Low Density Lipoprotein 14 mg/dL (5-40)
== END | disposition home or self-care (01) ==
LOC: BIMLAB 09:15
PROVIDERS: PCP Nurse Practitioner Family; Referring Provider Nurse Practitioner Family; Visit Provider Nurse Practitioner Family
DX: I10 Essential (primary) hypertension (principal); J44.9 Chronic obstructive pulmonary disease, unspecified; R06.00 Dyspnea, unspecified; R73.09 Other abnormal glucose
CPT/HCPCS: 36415; 80053; 80061; 83036; 84443; 85025

== ENCOUNTER → 2022-08-27 | Outpatient (CLI) | payer MEDICAID, SELFPAY ==
[2022-08-27 12:23] LABS: Anion Gap 5 (5-15); BUN 16 mg/dL (7-18); BUN/Creat Ratio 14.7 RATIO (10-20); Chloride 105 mmol/L (98-107); Creatinine, Serum 1.09 mg/dL (0.70-1.30); EST Glomerular Filtration Rate 73 mL/min (>60); Est Glom Filt Rate - Afr Amer 88 mL/min (>60); Glucose 112 mg/dL (74-106); Potassium 5.3 mmol/L (3.5-5.1); Sodium Level 137 mmol/L (136-145)
== END | disposition home or self-care (01) ==
LOC: BIMLAB 09:00
PROVIDERS: PCP Internal Medicine; Referring Provider Internal Medicine; Visit Provider Internal Medicine
DX: I10 Essential (primary) hypertension (principal)
CPT/HCPCS: 36415; 80048

== ENCOUNTER → 2022-10-17 | Outpatient (CLI) | payer MEDICAID, SELFPAY | END | disposition home or self-care (01) | LOC: SL 20:04 | PROVIDERS: PCP Internal Medicine; Visit Provider Nurse Practitioner Acute Care | DX: G47.33 Obstructive sleep apnea (adult) (pediatric) (principal); J44.9 Chronic obstructive pulmonary disease, unspecified | CPT/HCPCS: 95810 ==

== ENCOUNTER → 2022-11-04 | Outpatient (CLI) | payer MEDICAID, SELFPAY ==
[2022-11-04 12:52] LABS: Potassium 4.3 mmol/L (3.5-5.1)
== END | disposition home or self-care (01) ==
LOC: BIMLAB 11:25
PROVIDERS: PCP Internal Medicine; Referring Provider Internal Medicine; Visit Provider Internal Medicine
DX: E87.5 Hyperkalemia (principal)
CPT/HCPCS: 36415; 84132

== ENCOUNTER → 2023-01-09 | Outpatient (CLI) | payer MEDICAID, SELFPAY ==
--- NOTE | 2023-01-09 15:47 | CT_ITS ---
STUDY: LOW DOSE CT LUNG CANCER SCREENING REASON FOR EXAM: Male, 62 years old. 40 pack year history: Approximately one year ago. RADIATION DOSAGE (If Supplied By Facility): CTDIvol = ( 2.39 ) mGy, DLP = ( 86.67 ) mGycm TECHNIQUE: No contrast was administered. Low dose technique was utilized (average mAS-38 and kVp 120). 1.25 mm axial source images with a slice interval of 1.25-mm were reconstructed in lung windows. 2.5 mm axial source images with a slice interval of 2.5-mm were reconstructed in lung windows. 5.0 mm axial source images with a slice interval of 5.0-mm were reconstructed in soft tissue windows. COMPARISON: Chest, April 20, 2022. NODULES: Nodule #: 1 Density: Solid Lung location: Right upper lobe lobe: 0.9 cm from pleura Location in series: Series Number: 2 Image: 60 Size - D1 x D2 mm: 2 x 2 mm: 2 mm average diameter Margin: Smooth Shape: Rounded Calcification: Yes Fat: No Temporal comparison: None Total lung nodules (excluding granulomas): 0 Emphysema: Diffuse emphysematous changes of the lungs. Endobronchial lesion: None Aorta: Atherosclerotic tortuosity without aneurysm. CORONARY ARTERIES: Coronary artery calcification is not seen. Heart: Normal Pulmonary artery: Normal Mediastinal nodes: None Other chest and abdominal findings: CT/Low Dose CT Lung Screening IMPRESSION: Lung-RADS category 1 - Continue annual screening with LDCT in 12 months. IMPORTANT NOTES FOR USE: ACR Lung-RADS Version 1.1 Assessment Categories Release Date: 2018 Category: Coded 0-4 bases on nodule(s) with highest degree of suspicion. Negative screen is defined as categories 1 and 2; a positive screen is defined as categories 3 and 4. Category 3 and 4A nodules that are unchanged on interval CT should be coded as category 2, and individuals returned to screening in 12 months. Category 4X: Category 3 or 4 nodules with additional imaging findings that increase the suspicion of lung cancer, such as spiculation, GGN that doubles in size in 1 year, enlarged lymph notes, etc. Category Modifiers: S (significant finding unrelated to lung cancer) Electronically Signed: Job Villalobos DO at 20:02 EST Reading Location ID and State: [facility] / [place] Tel [phone], Service support ,
== END | disposition home or self-care (01) ==
LOC: CT 15:46
PROVIDERS: PCP Internal Medicine; Referring Provider Nurse Practitioner Acute Care; Visit Provider Nurse Practitioner Acute Care
DX: F17.210 Nicotine dependence, cigarettes, uncomplicated (principal)
CPT/HCPCS: 71271

== ENCOUNTER → 2023-10-06 | Outpatient (CLI) | payer MEDICAID, SELFPAY ==
[2023-10-06 12:31] LABS: Absolute Lymphocyte Count 0.75 X10^3/uL (0.83-4.51); Absolute Neutrophil Count 7.8 X10^3/uL (2.0-7.7); Basophil# 0.04 X10^3/uL; Basophil% 0.4 % (0-1); Eosinophil# 0.06 X10^3/uL; Eosinophils% 0.6 % (0-5); Hematocrit 36.5 % (40-54); Hemoglobin 11.5 g/dL (13.0-16.5); Lymphocyte # 0.75 X10^3/ul (0.83-4.51); Lymphocyte % 7.8 % (19-41); Mean Corp Hgb Conc 31.5 g/dL (32-36); Mean Corpuscular Hgb 26.3 pg (27.0-32.0); Mean Corpuscular Volume 83.3 fL (80-94); Mean Platelet Vol. 8.5 fl (6.2-12.0); Monocyte# 0.94 X10^3/uL; Monocyte% 9.8 % (0-10); NRBC Flagged by Analyzer 0 % (0-5); Neutrophil # 7.79 X10^3/uL (2.7-7.7); Platelet Count 680 K/mm3 (150-450); RBC Distribution Width CV 14.3 % (11.6-14.6); RBC Distribution Width SD 43.7 fl (35.1-43.9); Red Blood Count 4.38 M/mm3 (4.6-6.2); White Blood Count 9.6 K/mm3 (4.4-11.0)
[2023-10-06 13:08] LABS: ALB/GLOB Ratio 0.4 RATIO (0.9-2.4); AST(SGOT) 8 U/L (15-37); Alanine Aminotransfer ALT/SGPT 8 U/L (16-61); Albumin, Serum 2.2 g/dL (3.2-5.0); Alkaline Phosphatase 86 U/L (45-117); Anion Gap 9 (5-15); BUN 12 mg/dL (7-18); BUN/Creat Ratio 12.8 RATIO (10-20); Calcium,Total 9.1 mg/dL (8.5-10.1); Chloride 99 mmol/L (98-107); Cholesterol 111 mg/dL (200); Creatinine, Serum 0.94 mg/dL (0.70-1.30); EST Glomerular Filtration Rate 87 mL/min (>60); Est Glom Filt Rate - Afr Amer 105 mL/min (>60); Globulin 5.8 g/dL (2.2-4.2); Glucose 125 mg/dL (74-106); High Density Lipoprotein 33 mg/dL; Potassium 3.4 mmol/L (3.5-5.1); Sodium Level 132 mmol/L (136-145); Triglycerides 93 mg/dL; Very Low Density Lipoprotein 19 mg/dL (5-40)
== END | disposition home or self-care (01) ==
LOC: BIMLAB 11:51
PROVIDERS: PCP Internal Medicine; Referring Provider Internal Medicine; Visit Provider Internal Medicine
DX: R10.32 Left lower quadrant pain (principal); I10 Essential (primary) hypertension; Z13.6 Encounter for screening for cardiovascular disorders
CPT/HCPCS: 36415; 80053; 80061; 85025

== ENCOUNTER → 2023-10-08 | Outpatient (CLI) | payer MEDICAID, SELFPAY ==
[2023-10-08 11:52] LABS: White Blood Cells 0 SEEN /hpf (0-5)
[2023-10-08 12:22] LABS: Color, Urine Yellow (Yellow); Glucose, Dipstick Normal (Normal); Ketone-Dipstick 50 mg/dl (Negative); Leukocyte Esterase-Dipstick Negative /ul (Negative); Nitrite-Dipstick Negative (Negative); Occult Blood-Urine 25 /ul (Negative); Protein-Dipstick 30 mg/dl (Negative); Specific Gravity, Urine 1.025 (1.002-1.030); Urine Bilirubin Dipstick Negative (Negative); Urine Clarity Sl. Cloudy (Clear); Urine Urobilinogen 1 mg/dl (Normal)
[2023-10-08 12:30] LABS: Bacteria 1+ /hpf (None Seen); Mucous, Urine 2+ /hpf (<or=2+); Red Blood Cells-Urine 0-5 SEEN /hpf (0-5); Squamous Epithelial Cells - UA 0-5 SEEN /hpf (0-5)
== END | disposition home or self-care (01) ==
LOC: LABSPEC 11:50
PROVIDERS: PCP Internal Medicine; Visit Provider Internal Medicine
DX: R10.32 Left lower quadrant pain (principal)
CPT/HCPCS: 81001; 87086; 87088

== ENCOUNTER 2023-10-15 18:33 | Inpatient (IN) | payer MEDICAID, SELFPAY ==
[2023-10-15 18:34] VITALS: BP 73/63; PULSE 84; RESP 22; TEMP 36.1; O2SAT 99
[2023-10-15 19:16] LABS: Absolute Lymphocyte Count 1.03 X10^3/uL (0.83-4.51); Absolute Neutrophil Count 8.8 X10^3/uL (2.0-7.7); Basophil# 0.05 X10^3/uL; Basophil% 0.5 % (0-1); Eosinophil# 0.12 X10^3/uL; Eosinophils% 1.1 % (0-5); Hematocrit 35.5 % (40-54); Hemoglobin 11.3 g/dL (13.0-16.5); Lymphocyte # 1.03 X10^3/ul (0.83-4.51); Lymphocyte % 9.4 % (19-41); Mean Corp Hgb Conc 31.8 g/dL (32-36); Mean Corpuscular Hgb 25.7 pg (27.0-32.0); Mean Corpuscular Volume 80.7 fL (80-94); Mean Platelet Vol. 8.7 fl (6.2-12.0); Monocyte# 0.83 X10^3/uL; Monocyte% 7.6 % (0-10); NRBC Flagged by Analyzer 0 % (0-5); Neutrophil # 8.83 X10^3/uL (2.7-7.7); Neutrophil % 80.8 % (47-70); Platelet Count 725 K/mm3 (150-450); RBC Distribution Width CV 14.2 % (11.6-14.6); RBC Distribution Width SD 41.9 fl (35.1-43.9); White Blood Count 10.9 K/mm3 (4.4-11.0)
[2023-10-15 19:30] LABS: Anion Gap 7 (5-15); BUN 13 mg/dL (7-18); BUN/Creat Ratio 12.3 RATIO (10-20); Calcium,Total 8.8 mg/dL (8.5-10.1); Chloride 96 mmol/L (98-107); Creatinine, Serum 1.06 mg/dL (0.70-1.30); EST Glomerular Filtration Rate 75 mL/min (>60); Est Glom Filt Rate - Afr Amer 91 mL/min (>60); Glucose 113 mg/dL (74-106); Potassium 2.9 mmol/L (3.5-5.1); Sodium Level 131 mmol/L (136-145)
[2023-10-15 19:56] VITALS: BP 108/70; PULSE 85; RESP 15; O2SAT 96
--- NOTE | 2023-10-15 19:57 | ED.RN ---
LITER OF NS COMPLETED AT THIS TIME. BP 108.70, HR 85
[2023-10-15 19:59] LABS: Lactic Acid 2.1 mmol/L (0.4-1.9)
[2023-10-15 20:47] VITALS: O2SAT 99
--- NOTE | 2023-10-15 20:47 | EKG12_ITS ---
Test Reason : DYSRHYTHMIA Blood Pressure : / mmHG Vent. Rate : 095 BPM Atrial Rate : 095 BPM P-R Int : 098 ms QRS Dur : 088 ms QT Int : 392 ms P-R-T Axes : 025 034 032 degrees QTc Int : 492 ms Sinus rhythm with short FL Nonspecific ST and T wave abnormality Prolonged QT Abnormal ECG Confirmed by EZEQUIEL BUSCH, EB ([id number]), editor publications ALBERTA MAGUIRE ([id number]) on 10/22/2023 11:50:15 AM Referred By: Confirmed By:EB NIEVES MD
[2023-10-15 21:00] VITALS: PULSE 84; RESP 24; O2SAT 99
[2023-10-15 21:07] LABS: Partial Thromboplast Time 40.8 Seconds (24.1-36.2)
[2023-10-15 21:12] LABS: Prothrombin Time (Protime)PT. 13.5 SECONDS (11.7-14.9)
[2023-10-15] MEDS: 0.9% Normal Saline (1000mL) 1,000 ML 150 ML IV (21:23)
[2023-10-15] MEDS: metroNIDAZOLE 500 MG/100 ML BAG 100 MG IV (21:23)
--- NOTE | 2023-10-15 21:25 | RAD_ITS ---
STUDY: X-RAY CHEST REASON FOR EXAM: Male, 63 years old. sob TECHNIQUE: Single AP portable view of the chest. COMPARISON: 02/18/2022 FINDINGS: There is hyperinflation of the lungs consistent with chronic obstructive lung disease (COPD). There is no demonstrated pleural abnormality. Normal size heart. Normal mediastinum and cynthia. Normal visualized pulmonary arteries. There is atherosclerotic tortuosity of the aortic arch and descending thoracic aorta. Normal visualized thoracic spine. Normal visualized ribs, clavicles, and shoulders. There is no demonstrated abnormality of the visualized soft tissue structures of the upper abdomen. RAD/Chest 1 View (Portable) IMPRESSION: Emphysema without pneumonia or atelectasis. Electronically Signed: William Rivero MD at 22:03 EST ,
--- NOTE | 2023-10-15 22:35 | HP.PCM.HOS_ITS ---
HPI - General General Date of Admission: 10/15/23 Date of Service: 10/15/23 Chief Complaint: Abnormal CT A/P HPI Narrative VANIA LAM, is a 63 M who presented to department at [facility] on 10/15/2023 with a chief complaint of [facility] Medical History (Updated 10/15/23 @ 22:[address] Bety Arevalo, DO) Adult failure to thrive Former smoker History of broken finger History of fracture of clavicle History of pneumonia History of rib fracture History of toe fracture HTN (hypertension) Hx of bronchitis Hypertension Seasonal allergies Stage 4 very severe COPD by GOLD classification Home Medications blood pressure monitor #1 ea 08/27/22 [Rx Last Taken Unknown] budesonide 160 mcg-glycopyr 9 mcg-formot 4.8 mcg/actuation HFA inhaler (Breztri Aerosphere) 2 inh inhalation BID #10.7 grams 12/30/22 [Rx Last Taken Unknown] Disability Placard #1 ea 06/25/23 [Rx Last Taken Unknown] metoprolol succinate 50 mg tablet,extended release 24 hr 50 mg PO DAILY #30 tabs 07/03/23 [Rx Last Taken Unknown] potassium chloride 20 mEq tablet,extended release(part/cryst) 40 meq (2 x 20 mEq) PO ONCE #2 tabs 10/06/23 [Rx Last Taken Unknown] amlodipine 2.5 mg tablet 2.5 mg PO DAILY #30 tabs 10/07/23 [Rx Last Taken Unknown] Allergy/AdvReac Type Severity Reaction Status Date / Time Penicillins AdvReac NEEDS Verified 10/15/23 18:34 FOLLOW-UP Family History Uncle Diabetes Father Cancer Kidney disease Grandfather COPD (chronic obstructive pulmonary disease) Brother Hypertension Mother Heart disease Peripheral vascular disease Grandfather Heart disease Diabetes Uncle Alcoholism Surgical History History of tonsillectomy Social History household members: none current occupational status: disabled Smoking Status: Former smoker quit date: 12/01/21 pack-years: 29 Tobacco: How many years used: 29 Electronic Cigarette Use: not used how long ago did patient quit smokin 24 pack year history second hand exposure: No alcohol intake: current alcohol intake frequency: 0-2 drinks per day Alcohol type: beer substance use type: does not use what type of physical activity do you participate in: walking frequency: 3-4 times per week do you feel safe at home: Yes Vital Signs Vital Signs Vital Signs: 10/15/23 18:34 10/15/23 19:56 10/15/23 20:47 Temperature 96.9 F L Temperature Source Temporal Pulse Rate 84 85 Respiratory Rate 22 H 15 Blood Pressure 73/63 L 108/70 Blood Pressure Mean 66 82 Pulse Ox 99 96 99 Oxygen Delivery Method Room Air Room Air Room Air Results Lab / Micro Data 10/15/23 19:00 10/15/23 22:49 Labs: Laboratory Results - last 24 hr 10/15/23 19:00: WBC 10.9, RBC 4.40 L, Hgb 11.3 L, Hct 35.5 L, MCV 80.7, MCH 25.7 L, MCHC 31.8 L, RDW Std Deviation 41.9, RDW Coeff of [place] 14.2, Plt Count 725 H, MPV 8.7, Immature Gran % (Auto) 0.600, Neut % (Auto) 80.8 H, Lymph % (Auto) 9.4 L, [place] % (Auto) 7.6, Eos % (Auto) 1.1, Baso % (Auto) 0.5, Absolute Neuts (auto) 8.8 H, Absolute Lymphs (auto) 1.03, Nucleated RBC % 0, PT 13.5, INR 1.0, APTT 40.8 H, Sodium 131 L, Potassium 2.9 L, Chloride 96 L, Carbon Dioxide 28.0, Anion Gap 7, BUN 13, Creatinine 1.06, Est GFR (MDRD) Af Amer 91, Est GFR (MDRD) Non-Af 75, BUN/Creatinine Ratio 12.3, Glucose 113 H, Lactic Acid 2.1 H*, Calcium 8.8 10/15/23 21:40: Sodium Cancelled, Potassium Cancelled, Chloride Cancelled, Carbon Dioxide Cancelled, Anion Gap Cancelled, BUN Cancelled, Creatinine Cancelled, Estim Creat Clear Calc Cancelled, Est GFR (MDRD) Af Amer Cancelled, Est GFR (MDRD) Non-Af Cancelled, BUN/Creatinine Ratio Cancelled, Glucose Cancelled, Calcium Cancelled, Total Bilirubin Cancelled, Direct Bilirubin Cancelled, AST Cancelled, ALT Cancelled, Alkaline Phosphatase Cancelled, Total Protein Cancelled, Albumin Cancelled, Globulin Cancelled, Albumin/Globulin Ratio Cancelled Radiology Impression Chest X-Ray 10/15/23 21:25 IMPRESSION: Emphysema without pneumonia or atelectasis. Electronically Signed: William Rivero MD at 22:03 EST , Assessment & Plan Assessment/Plan (1) Colonic mass: (2) Abdominal abscess: (3) Anemia: (4) Thrombocytosis: (5) Hypokalemia: (6) Hyponatremia: (7) Lactic acidosis: Charges/Coding Visit Charges Inpatient E&M: 15023 Init Hosp L2
--- NOTE | 2023-10-15 22:35 | PCM.HP.STD ---
[facility] Date of Admission: 10/15/23 Date of Service: 10/15/23 Chief Complaint: Abnormal CT A/P HPI Narrative VANIA LAM, is a 63 M who presented to the emergency department at [facility] on 10/15/2023 after being instructed to do so by his primary care physician after having a CT of his abdomen pelvis earlier today. Patient reports that in July of this year he woke up and had some chills and some abdominal pain for which he took some ibuprofen and then felt better after that. He felt good until about mid August at which time he started having intermittent abdominal pain on the left side that would come and go. He noted that it slowly has gotten more persistent and he has been having on more days than he has not been as of recently. He also reported that he was having a change in his stools and the fact that he was having more frequent lower volume stools that were extremely loose in nature. He saw his primary care physician earlier this week and a CT of his abdomen pelvis was ordered for his symptoms. This was done today and revealed a 7 cm soft tissue mass in the descending colon that was worrisome for colonic carcinoma as well as stranding of fat extending into the left paracolic gutter with a sinus tract that extended laterally into a 4 cm fluid collection with air-fluid levels in the paracolic gutter adjacent to the musculature of the abdominal wall that was worrisome for abscess. There is also a 2.5 cm bilobed fluid collection with air-fluid levels within the musculature of the anterior bowel wall that was worrisome for a penetrating abscess. The case was discussed with the on-call surgeon who recommended transfer to outside facility. [facility] has been called and he has been accepted however no surgical beds are currently available and request for admission here was made by the emergency department physicians until we can get him a bed over at [facility] for definitive treatment. The patient admits to having quite severe COPD and quit smoking 2 years ago. He is not dependent on oxygen at baseline. Vital signs show a temperature of 96.9, heart rate 84, blood pressure of 108/70, respiratory rate 22 and oxygen saturations are 96 to 99% on room air. His CBC shows a normal white count with a mild anemia at 11.3. He has severe thrombocytosis with a platelet count of 725,000 and a left shift with an 88.8% neutrophilia. Coags are normal. Chemistry panel shows hyponatremia with a sodium of 134, hypokalemia with potassium of 2.8, and normal renal function. His lactic acid was mildly elevated 2.1. Liver functions are unremarkable. Bilirubin is normal. Chest x-ray was done and shows emphysema without pneumonia or atelectasis. EKG shows normal sinus rhythm with mildly prolonged QTc and no ST-T wave changes concerning for acute ischemia. He was given IV fluids, potassium, and IV antibiotics in the form of ciprofloxacin and metronidazole in the emergency department. [facility] Medical History Adult failure to thrive Former smoker History of broken finger History of fracture of clavicle History of pneumonia History of rib fracture History of toe fracture HTN (hypertension) Hx of bronchitis Hypertension Seasonal allergies Stage 4 very severe COPD by GOLD classification Home Medications blood pressure monitor #1 ea 08/27/22 [Rx Last Taken Unknown] budesonide 160 mcg-glycopyr 9 mcg-formot 4.8 mcg/actuation HFA inhaler (Breztri Aerosphere) 2 inh inhalation BID COPD #10.7 grams 12/30/22 [Rx Last Taken Unknown] Disability Placard #1 ea 06/25/23 [Rx Last Taken Unknown] metoprolol succinate 50 mg tablet,extended release 24 hr 50 mg PO DAILY HTN #30 tabs 07/03/23 [Rx Last Taken Unknown] amlodipine 2.5 mg tablet 2.5 mg PO DAILY HTN #30 tabs 10/07/23 [Rx Last Taken Unknown] Allergy/AdvReac Type Severity Reaction Status Date / Time Penicillins AdvReac NEEDS Verified 10/15/23 18:34 FOLLOW-UP Family History Uncle Diabetes Father Cancer Kidney disease Grandfather COPD (chronic obstructive pulmonary disease) Brother Hypertension Mother Heart disease Peripheral vascular disease Grandfather Heart disease Diabetes Uncle Alcoholism Surgical History History of tonsillectomy Social History household members: none current occupational status: disabled Smoking Status: Former smoker quit date: 12/01/21 pack-years: 29 Tobacco: How many years used: 29 Electronic Cigarette Use: not used how long ago did patient quit smokin 24 pack year history second hand exposure: No alcohol intake: current alcohol intake frequency: 0-2 drinks per day Alcohol type: beer substance use type: does not use what type of physical activity do you participate in: walking frequency: 3-4 times per week do you feel safe at home: Yes ROS Constitutional Constitutional: Reports chills; Denies anorexia, change in weight, fatigue, fever(s), malaise, night sweats, weakness or other Eyes Eyes: Denies blurry vision, change in eye color, change in vision, discharge from eye(s), double vision, erythema, eye pain, loss of vision or other ENT HEENT: Denies abnormal hearing, dysphagia, ear pain, epistaxis, headache(s), hearing loss, nasal congestion, nasal discharge, post nasal drip, sinus pressure, sore throat or other Cardiovascular Cardiovascular: Reports dyspnea on exertion; Denies chest pain, claudication, edema, lightheadedness, orthopnea, palpitations, paroxysmal nocturnal dyspnea, rapid heart rate, syncope or other Respiratory/Chest Respiratory/Chest: Reports shortness of breath at rest and shortness of breath with exertion; Denies cough, dyspnea, excessive phlegm production, hemoptysis, productive cough, wheezing or other Gastrointestinal Gastrointestinal: Reports abdominal pain and loose stools; Denies coffee ground emesis, constipation, diarrhea, dyspepsia, hematemesis, hematochezia, melena, nausea, vomiting or other Genitourinary Genitourinary: Denies burning urination, difficulty urinating, dysuria, hematuria, nocturia, urinary frequency, urinary hesitancy, urinary incontinence, urinary urgency or other Musculoskeletal Musculoskeletal: Reports back pain; Denies arthralgias, joint pain, joint stiffness, joint swelling, myalgias, neck pain or other Neurologic Neurologic: Denies abnormal gait, abnormal speech, confusion, disequilibrium, dizziness, focal weakness, headache(s), numbness, paresthesias, seizure-like activity, seizures, syncope, tingling, tremor(s) or other Psychiatric Psychiatric: Denies anxiety, depression, homicidal ideation, suicidal ideation or other Endocrine Endocrinology: Denies change in body appearance, cold intolerance, excessive sweating, heat intolerance, polydipsia, polyuria or other Hematologic/Lymphatic Hematologic/Lymphatic: Reports anemia; Denies easy bleeding, easy bruising, lymphadenopathy or other Allergic/Immunologic Allergic/Immunologic: Denies rhinitis, hives, eczemia, asthma or other Vital Signs Vital Signs Vital Signs: 10/15/23 18:34 10/15/23 19:56 10/15/23 20:47 Temperature 96.9 F L Temperature Source Temporal Pulse Rate 84 85 Respiratory Rate 22 H 15 Blood Pressure 73/63 L 108/70 Blood Pressure Mean 66 82 Pulse Ox 99 96 99 Oxygen Delivery Method Room Air Room Air Room Air Physical Exam Const alert, oriented x3, no apparent distress, average body habitus and well nourished Constitutional Narrative: Middle-aged, white male, appears comfortable and nontoxic, very pleasant General Appearance: cooperative HEENT normocephalic, head/scalp atraumatic, hearing grossly normal bilaterally and moist oral mucous membranes HEENT Narrative: Dentition is poor, Mallampati is 2, no thrush Eyes PERRL, EOMs intact bilaterally and conjunctivae normal Eyes Narrative: No scleral icterus Neck no lymphadenopathy and supple Neck Narrative: Trachea midline, no thyroid enlargement Resp no retractions, no use of accessory muscles and clear to auscultation bilaterally Resp Narrative: Intermittent pursed lip breathing without any signs of distress, diffusely diminished severely but no adventitious sounds noted Auscultation: Negative for rales, rhonchi or wheezes Cardio regular rate, regular rhythm, S1 normal heart sound, S2 normal heart sound, no murmurs, no rub, no gallops and no clicks GI normal to inspection, nondistended, normoactive bowel sounds and soft to palpation; Negative for hepatosplenomegaly GI Narrative: Mild tenderness in the left mid abdominal area Extremity Extremity Narrative: Mild clubbing, no cyanosis or edema Skin no wounds, skin turgor normal, no jaundice, no petechiae and no mottling Neuro oriented x3, CN's II-XII intact bilaterally, moves all extremities and no focal motor deficits Speech: speech normal Psych affect normal Psych Narrative: Pleasant, interacts appropriately, talkative Results Lab / Micro Data 10/15/23 19:00 10/15/23 22:49 Labs: Laboratory Results - last 24 hr 10/15/23 19:00: WBC 10.9, RBC 4.40 L, Hgb 11.3 L, Hct 35.5 L, MCV 80.7, MCH 25.7 L, MCHC 31.8 L, RDW Std Deviation 41.9, RDW Coeff of [place] 14.2, Plt Count 725 H, MPV 8.7, Immature Gran % (Auto) 0.600, Neut % (Auto) 80.8 H, Lymph % (Auto) 9.4 L, [place] % (Auto) 7.6, Eos % (Auto) 1.1, Baso % (Auto) 0.5, Absolute Neuts (auto) 8.8 H, Absolute Lymphs (auto) 1.03, Nucleated RBC % 0, PT 13.5, INR 1.0, APTT 40.8 H, Sodium 131 L, Potassium 2.9 L, Chloride 96 L, Carbon Dioxide 28.0, Anion Gap 7, BUN 13, Creatinine 1.06, Est GFR (MDRD) Af Amer 91, Est GFR (MDRD) Non-Af 75, BUN/Creatinine Ratio 12.3, Glucose 113 H, Lactic Acid 2.1 H*, Calcium 8.8 10/15/23 21:40: Sodium Cancelled, Potassium Cancelled, Chloride Cancelled, Carbon Dioxide Cancelled, Anion Gap Cancelled, BUN Cancelled, Creatinine Cancelled, Estim Creat Clear Calc Cancelled, Est GFR (MDRD) Af Amer Cancelled, Est GFR (MDRD) Non-Af Cancelled, BUN/Creatinine Ratio Cancelled, Glucose Cancelled, Calcium Cancelled, Total Bilirubin Cancelled, Direct Bilirubin Cancelled, AST Cancelled, ALT Cancelled, Alkaline Phosphatase Cancelled, Total Protein Cancelled, Albumin Cancelled, Globulin Cancelled, Albumin/Globulin Ratio Cancelled Radiology Impression Chest X-Ray 10/15/23 21:25 IMPRESSION: Emphysema without pneumonia or atelectasis. Electronically Signed: William Rivero MD at 22:03 EST , Assessment & Plan Assessment/Plan (1) Colonic mass: (2) Abdominal abscess: (3) Anemia: (4) Thrombocytosis: (5) Hypokalemia: (6) Hyponatremia: (7) Lactic acidosis: PLAN: Plan Colonic mass -Suspect colon cancer -Has been accepted at [facility] for more definitive surgery with bed availability pending -Full for bed tomorrow -N.p.o. okay for sips and chips as well as oral medications -IV fluids -Consult general surgery in case something catastrophic occurs while he is hospitalized here until bed available Intra-abdominal abscess secondary to microperforation from the above -N.p.o. -IV fluids -Continue ciprofloxacin -Continue Flagyl -As needed IV pain medication -Transfer to outside facility pending Hypokalemia -40 mill equivalents IV potassium -Check a.m. magnesium level -Repeat a.m. BMP Hyponatremia -Mild -Continue to monitor -May be related to decreased solute intake Lactic acidosis -Likely related to above infection -Mild Thrombocytosis -We will check iron studies with mild anemia as this could be related to the iron deficiency anemia -Also could be related to infection -Continue to monitor -If iron studies reveal iron deficiency will replace with IV iron Mild anemia -Check iron studies -Would not be surprised if he has iron deficiency with large colonic mass -Repeat CBC in a.m. Hypertension -Blood pressures currently soft -Hold home antihypertensives -As needed IV hydralazine Severe COPD -Stage IV by Gold classification -Patient quit smoking in 2021 -Continue inhalers -As needed albuterol -PFTs from 04/11/2022 showed an FEV1 of 31% predicted -Follows with Dr. Car DVT prophylaxis -Subcu Lovenox 40 daily -Monitor hemoglobin closely CODE STATUS -Full code is verified on admission Charges/Coding Visit Charges Inpatient E&M: 12585 Init Hosp L2
[2023-10-15] MEDS: Ciprofloxacin 400 MG/200 ML BAG 200 MG IV (22:49)
[2023-10-15 23:13] LABS: Reflex Lactate? Y
[2023-10-15 23:19] LABS: ALB/GLOB Ratio 0.4 RATIO (0.9-2.4); AST(SGOT) 10 U/L (15-37); Alanine Aminotransfer ALT/SGPT 7 U/L (16-61); Albumin, Serum 1.8 g/dL (3.2-5.0); Alkaline Phosphatase 72 U/L (45-117); Anion Gap 8 (5-15); BUN 11 mg/dL (7-18); BUN/Creat Ratio 13.6 RATIO (10-20); Bilirubin, Direct 0.24 mg/dL (0.00-0.30); Calcium,Total 7.9 mg/dL (8.5-10.1); Chloride 100 mmol/L (98-107); Creatinine, Serum 0.81 mg/dL (0.70-1.30); EST Glomerular Filtration Rate 103 mL/min (>60); Est Glom Filt Rate - Afr Amer 124 mL/min (>60); Globulin 4.9 g/dL (2.2-4.2); Glucose 103 mg/dL (74-106); Potassium 2.8 mmol/L (3.5-5.1); Protein, Total 6.7 g/dL (6.4-8.2); Sodium Level 134 mmol/L (136-145)
[2023-10-15 23:23] VITALS: BP 121/71; PULSE 92; RESP 24; TEMP 36.4; O2SAT 98
--- NOTE | 2023-10-15 23:38 | ED.VIS.GI ---
HPI HPI - GI History of Present Illness Chief Complaint: Abd Pain Informant: patient Narrative Narrative: Patient is a 63 year old male with history of stage IV COPD (not on any home oxygen) and hypertension presenting for abnormal CT. Patient had outpatient CT ordered for worsening abdominal pain over the past 1 to 2 months and 1 week of fever and chills. He is never had a prior colonoscopy. Outpatient CT showed 7 cm colonic mass concerning for malignancy as well as microperforation with stranding of fat extending to the left paracolic gutter with a sinus tract extending laterally into a 4 cm fluid collection with air-fluid level as well as a 2.5 cm bilobed fluid collection with air-fluid level within the musculature of the anterior bowel worrisome for penetrating abscess. General surgery was notified of this patient's as well. Patient has no known history of cancer. States she has been feeling more constipated lately but has had a large bowel movement earlier today. Denies any black or blood in the stool. No nausea or vomiting currently. No other complaints at this time. [facility] Medical History Adult failure to thrive Former smoker History of broken finger History of fracture of clavicle History of pneumonia History of rib fracture History of toe fracture HTN (hypertension) Hx of bronchitis Hypertension Seasonal allergies Stage 4 very severe COPD by GOLD classification Home Medications blood pressure monitor #1 ea 08/27/22 [Rx Last Taken Unknown] budesonide 160 mcg-glycopyr 9 mcg-formot 4.8 mcg/actuation HFA inhaler (Breztri Aerosphere) 2 inh inhalation BID COPD #10.7 grams 12/30/22 [Rx Last Taken Unknown] Disability Placard #1 ea 06/25/23 [Rx Last Taken Unknown] metoprolol succinate 50 mg tablet,extended release 24 hr 50 mg PO DAILY HTN #30 tabs 07/03/23 [Rx Last Taken Unknown] amlodipine 2.5 mg tablet 2.5 mg PO DAILY HTN #30 tabs 10/07/23 [Rx Last Taken Unknown] Allergy/AdvReac Type Severity Reaction Status Date / Time Penicillins AdvReac NEEDS Verified 10/15/23 18:34 FOLLOW-UP Family History Uncle Diabetes Father Cancer Kidney disease Grandfather COPD (chronic obstructive pulmonary disease) Brother Hypertension Mother Heart disease Peripheral vascular disease Grandfather Heart disease Diabetes Uncle Alcoholism Surgical History History of tonsillectomy Social History household members: none current occupational status: disabled Smoking Status: Former smoker quit date: 12/01/21 pack-years: 29 Tobacco: How many years used: 29 Electronic Cigarette Use: not used how long ago did patient quit smokin 24 pack year history second hand exposure: No alcohol intake: current alcohol intake frequency: 0-2 drinks per day Alcohol type: beer substance use type: does not use what type of physical activity do you participate in: walking frequency: 3-4 times per week do you feel safe at home: Yes ROS ROS ED Constitutional Constitutional ED: Reports chills and fever(s) Cardiovascular Cardiovascular: Denies chest pain Respiratory/Chest Respiratory/Chest: Reports dyspnea; Denies cough Gastrointestinal Gastrointestinal: Reports abdominal pain and constipation; Denies diarrhea or melena Genitourinary Genitourinary ED: Denies dysuria or hematuria Musculoskeletal Musculoskeletal: Denies arthralgias or myalgias Integumentary Denies rash Neurologic Neurologic: Denies headache(s) Hematologic/Lymphatic Hematologic/Lymphatic: Denies easy bleeding or easy bruising EXAM Physical Exam Const Vital Signs: 10/15/23 18:34 10/15/23 19:56 10/15/23 20:47 Temperature 96.9 F L Temperature Source Temporal Pulse Rate 84 85 Respiratory Rate 22 H 15 Blood Pressure 73/63 L 108/70 Blood Pressure Mean 66 82 Pulse Ox 99 96 99 Oxygen Delivery Method Room Air Room Air Room Air 10/15/23 21:00 Temperature Temperature Source Pulse Rate 84 Respiratory Rate 24 H Blood Pressure Blood Pressure Mean Pulse Ox 99 Oxygen Delivery Method Room Air Constitutional Narrative: Chronically ill-appearing, no acute distress General Appearance ED: pallor HEENT Reports moist mucous membranes Eyes PERRL and EOMs intact bilaterally Neck supple Resp Resp Narrative: Increased work of breathing with auto peeping. Diminished breath sounds throughout. Cardio regular rate and no murmurs GI GI Narrative: Mild tenderness of the left lower quadrant with a palpable mass. No overlying skin changes or erosions. Auscultation: normoactive bowel sounds Palpation: soft; Negative for guarding or rigid Extremity full ROM Neuro Sensorium / Orientation: alert, oriented to person, oriented to place and oriented to time Motor Exam: Negative for general weakness Psych mental status grossly normal and thought process normal Skin General Skin Exam: pallor MDM MDM MDM Narrative Medical decision making narrative: Patient is evaluated for new diagnosis of colonic mass concerning for malignancy as well as associated perforation and intra-abdominal abscess that look to be eroding into the abdominal wall as well as the bowel wall. Sepsis work-up is obtained as patient is mildly tachypneic (his x-ray appears to be his chronic respiratory pattern) and initial blood pressure is low however repeat normalizes. He is given some IV fluids in the ER. CBC shows a mild anemia with a hemoglobin 11.3. CMP shows hypokalemia with a potassium of 2.8 and is given some potassium replacement in the ER. Does have mildly elevated lactate of 2.1 which is nonspecific however given his known intra-abdominal infection and started on broad-spectrum antibiotics. Reports an allergy to penicillin however when asked what it is he states more that his family has history of severe allergies. Regardless is given ciprofloxacin and Flagyl in the emergency room. Case is discussed with general surgery who feels that his case is too complex for him. Patient will be transferred to [facility] as he would like to stay in [facility]. He is accepted by Dr. Cuevas, ever at this time they do not have a surgical bed available. Will be admitted to the general medical floor at [facility] until a bed becomes available. Case is discussed with Dr. Arevalo. Left n.p.o. after midnight for likely IR guided drainage of his abscesses. Lab Data Attestation: I reviewed the patient's lab results. Labs: Laboratory Results - last 24 hr 10/15/23 10/15/23 10/15/23 19:00 21:40 22:49 WBC 10.9 RBC 4.40 L Hgb 11.3 L Hct 35.5 L MCV 80.7 MCH 25.7 L MCHC 31.8 L RDW Std Deviation 41.9 RDW Coeff of [place] 14.2 Plt Count 725 H MPV 8.7 Immature Gran % (Auto) 0.600 Neut % (Auto) 80.8 H Lymph % (Auto) 9.4 L [place] % (Auto) 7.6 Eos % (Auto) 1.1 Baso % (Auto) 0.5 Absolute Neuts (auto) 8.8 H Absolute Lymphs (auto) 1.03 Nucleated RBC % 0 PT 13.5 INR 1.0 APTT 40.8 H Sodium 131 L Cancelled 134 L Potassium 2.9 L Cancelled 2.8 L Chloride 96 L Cancelled 100 Carbon Dioxide 28.0 Cancelled 26.0 Anion Gap 7 Cancelled 8 BUN 13 Cancelled 11 Creatinine 1.06 Cancelled 0.81 Estim Creat Clear Calc Cancelled Est GFR (MDRD) Af Amer 91 Cancelled 124 Est GFR (MDRD) Non-Af 75 Cancelled 103 BUN/Creatinine Ratio 12.3 Cancelled 13.6 Glucose 113 H Cancelled 103 Lactic Acid 2.1 H* Calcium 8.8 Cancelled 7.9 L Total Bilirubin Cancelled 0.40 Direct Bilirubin Cancelled 0.24 AST Cancelled 10 L ALT Cancelled 7 L Alkaline Phosphatase Cancelled 72 Total Protein Cancelled 6.7 Albumin Cancelled 1.8 L Globulin Cancelled 4.9 H Albumin/Globulin Ratio Cancelled 0.4 L Radiography Chest X-Ray - ED: 1 View, Read by ED Physician, Read by Radiologist, Chronic Changes and No Infiltrates Diagnostic Testing: Clinical Impression(s) from Imaging Studies Chest X-Ray 10/15/23 21:25 IMPRESSION: Emphysema without pneumonia or atelectasis. Electronically Signed: William Rivero MD at 22:03 EST , Rhythm Strip Rhythm Strip: Sinus Rhythm Rate: 95 Ectopy: None EKG Initial EKG: Attestation: I personally reviewed and interpreted this EKG as follows: Interpretation: Sinus Rhythm Comments: Normal sinus rhythm rate of 95 bpm OK interval [address] and T wave changes Prolonged QTc of 492 Compared to prior EKG on 02/20/2022 patient now has nonspecific ST segment changes in the inferior and precordial leads Management Discussion w/another healthcare provider: Hospitalist and Coffee Supervisor (General surgery ) Discharge Plan Triage Chief Complaint: Abd Pain ED Provider: Nini Farrar Dx/Rx/DC Orders Clinical Impression: Colonic mass, Anemia, Hyponatremia, Abdominal abscess, Hypokalemia, Lactic acidosis Primary Care Provider: Jina Cristina Disposition Disposition: Acute Care Hospital [facility]
[2023-10-15 23:55] LABS: Ferritin 293 ng/mL (26-388); Iron 23 ug/dL (65-175); Iron Binding Capacity,Total 107 ug/dL (250-450); PERCENT IRON SATURATION 21.5 % (15.0-55.0)
[2023-10-16] VITALS (7 sets, daily range): BP systolic 117–152; BP diastolic 79–100; PULSE 82–122; RESP 16–26; TEMP 36.7–37.3; O2SAT 96–98; BMI 22.4
[2023-10-16 00:05] LABS: Magnesium 2.2 mg/dL (1.6-2.6)
[2023-10-16] MEDS: Lactated Ringers 1,000 ML 100 ML IV ×2 (00:49→16:19)
[2023-10-16] MEDS: Potassium Chloride 10mEq/100mL 10 MEQ/100 ML IV.SOLN. 100 MEQ IV BOLUS ×4 (00:52→04:20)
[2023-10-16 01:03] LABS: Lactic Acid 1.9 mmol/L (0.4-1.9)
[2023-10-16] MEDS: metroNIDAZOLE 500 MG/100 ML BAG 100 MG IV ×3 (06:04→21:43)
[2023-10-16] MEDS: Budesonide Respules 0.5 MG/2 ML AMPUL.NEB. INHALATION ×2 (07:01→19:28)
[2023-10-16] MEDS: Ipratropium/Albuterol Sulfate 3 ML AMPUL.NEB INHALATION (07:01)
[2023-10-16 07:08] LABS: Absolute Neutrophil Count 5.8 X10^3/uL (2.0-7.7); Basophil# 0.03 X10^3/uL; Basophil% 0.4 % (0-1); Eosinophil# 0.11 X10^3/uL; Eosinophils% 1.4 % (0-5); Hematocrit 29.8 % (40-54); Hemoglobin 9.5 g/dL (13.0-16.5); Lymphocyte % 12.8 % (19-41); Mean Corp Hgb Conc 31.9 g/dL (32-36); Mean Corpuscular Hgb 26.2 pg (27.0-32.0); Mean Corpuscular Volume 82.1 fL (80-94); Mean Platelet Vol. 8.5 fl (6.2-12.0); Monocyte# 0.83 X10^3/uL; Monocyte% 10.6 % (0-10); NRBC Flagged by Analyzer 0 % (0-5); Neutrophil # 5.81 X10^3/uL (2.7-7.7); Neutrophil % 74.2 % (47-70); Platelet Count 529 K/mm3 (150-450); RBC Distribution Width CV 14.3 % (11.6-14.6); RBC Distribution Width SD 42.7 fl (35.1-43.9); Red Blood Count 3.63 M/mm3 (4.6-6.2); White Blood Count 7.8 K/mm3 (4.4-11.0)
--- NOTE | 2023-10-16 07:22 | EX.PCM.CON.S ---
Assessment & Plan Assessment/Plan (1) Colonic mass: PLAN: Patient was sent here from his PCPs office after CT scan revealed a colonic mass with abscess. The patient has been having pain since August. He says that he started having twinges in July but it became more constant in August and has been worsening ever since. I reviewed the CT scan and it appears that the patient has a large mass in the descending colon that has microperforation and there is abscess that is penetrating into the abdominal wall laterally. Given the fact that the patient has severe COPD and perforated colonic mass with abscess penetrating it through the fascia of the abdominal wall I think the patient would be best served going to a larger center for comprehensive treatment. Patient will likely need intensive care following surgery given his COPD. Wally Garner MD Pager: [facility] [address] [place] [address], [address] [place] [address] Office: HPI Consult Data Date of Consult: 10/16/23 HPI Narrative HPI Narrative: VANIA LAM, is a 63 M who presents after having outpatient CT. Patient says that he has been having left abdominal pain since July. He does not have any nausea or vomiting. He says he had a large bowel movement after the CT scan today but otherwise he has been passing mostly liquid stools. He also has severe COPD. [facility] Medical History (Updated 10/16/23 @ 00:32 by Marisela Sawyer) Adult failure to thrive Chronic cough COPD (chronic obstructive pulmonary disease) Former smoker Former smoker History of broken finger History of fracture of clavicle History of pneumonia History of rib fracture History of toe fracture HTN (hypertension) Hx of bronchitis Hypertension Hypertension Seasonal allergies Stage 4 very severe COPD by GOLD classification Home Medications blood pressure monitor #1 ea 08/27/22 [Rx Last Taken Unknown] budesonide 160 mcg-glycopyr 9 mcg-formot 4.8 mcg/actuation HFA inhaler (Breztri Aerosphere) 2 inh inhalation BID COPD #10.7 grams 12/30/22 [Rx Last Taken Unknown] Disability Placard #1 ea 06/25/23 [Rx Last Taken Unknown] metoprolol succinate 50 mg tablet,extended release 24 hr 50 mg PO DAILY HTN #30 tabs 07/03/23 [Rx Last Taken Unknown] amlodipine 2.5 mg tablet 2.5 mg PO DAILY HTN #30 tabs 10/07/23 [Rx Last Taken Unknown] Allergy/AdvReac Type Severity Reaction Status Date / Time Penicillins AdvReac NEEDS Verified 10/15/23 18:34 FOLLOW-UP Family History Uncle Diabetes Father Cancer Kidney disease Grandfather COPD (chronic obstructive pulmonary disease) Brother Hypertension Mother Heart disease Peripheral vascular disease Grandfather Heart disease Diabetes Uncle Alcoholism Surgical History History of tonsillectomy Social History household members: none current occupational status: disabled Smoking Status: Former smoker quit date: 12/01/21 pack-years: 29 Tobacco: How many years used: 29 Electronic Cigarette Use: not used how long ago did patient quit smokin 24 pack year history second hand exposure: No alcohol intake: current alcohol intake frequency: 0-2 drinks per day Alcohol type: beer substance use type: does not use what type of physical activity do you participate in: walking frequency: 3-4 times per week do you feel safe at home: Yes ROS Constitutional Constitutional: Reports anorexia and chills; Denies fatigue or fever(s) Eyes Eyes: Denies blurry vision ENT HEENT: Denies abnormal hearing Cardiovascular Cardiovascular: Denies chest pain Respiratory/Chest Respiratory/Chest: Reports dyspnea and shortness of breath at rest; Denies cough Gastrointestinal Gastrointestinal: Reports abdominal pain and constipation; Denies nausea or vomiting Genitourinary Genitourinary: Denies change in urinary stream Musculoskeletal Musculoskeletal: Denies abnormal gait Integumentary Integumentary: Denies jaundice Neurologic Neurologic: Denies abnormal gait or dizziness Psychiatric Psychiatric: Denies anxiety Endocrine Endocrinology: Denies heat intolerance Hematologic/Lymphatic Hematologic/Lymphatic: Denies easy bleeding Physical Exam Const alert and oriented x3 HEENT normocephalic Eyes PERRL Resp normal respiratory effort Cardio Rate: regular rate Rhythm: regular rhythm GI soft to palpation Palpation: tender LLQ and LUQ Extremity normal to inspection Lab / Micro Data 10/16/23 06:40 10/15/23 22:49 Labs: Laboratory Results - last 24 hr 10/15/23 19:00: WBC 10.9, RBC 4.40 L, Hgb 11.3 L, Hct 35.5 L, MCV 80.7, MCH 25.7 L, MCHC 31.8 L, RDW Std Deviation 41.9, RDW Coeff of [place] 14.2, Plt Count 725 H, MPV 8.7, Immature Gran % (Auto) 0.600, Neut % (Auto) 80.8 H, Lymph % (Auto) 9.4 L, [place] % (Auto) 7.6, Eos % (Auto) 1.1, Baso % (Auto) 0.5, Absolute Neuts (auto) 8.8 H, Absolute Lymphs (auto) 1.03, Nucleated RBC % 0, PT 13.5, INR 1.0, APTT 40.8 H, Sodium 131 L, Potassium 2.9 L, Chloride 96 L, Carbon Dioxide 28.0, Anion Gap 7, BUN 13, Creatinine 1.06, Est GFR (MDRD) Af Amer 91, Est GFR (MDRD) Non-Af 75, BUN/Creatinine Ratio 12.3, Glucose 113 H, Lactic Acid 2.1 H*, Calcium 8.8 10/15/23 21:40: Sodium Cancelled, Potassium Cancelled, Chloride Cancelled, Carbon Dioxide Cancelled, Anion Gap Cancelled, BUN Cancelled, Creatinine Cancelled, Estim Creat Clear Calc Cancelled, Est GFR (MDRD) Af Amer Cancelled, Est GFR (MDRD) Non-Af Cancelled, BUN/Creatinine Ratio Cancelled, Glucose Cancelled, Calcium Cancelled, Total Bilirubin Cancelled, Direct Bilirubin Cancelled, AST Cancelled, ALT Cancelled, Alkaline Phosphatase Cancelled, Total Protein Cancelled, Albumin Cancelled, Globulin Cancelled, Albumin/Globulin Ratio Cancelled 10/15/23 22:49: Sodium 134 L, Potassium 2.8 L, Chloride 100, Carbon Dioxide 26.0, Anion Gap 8, BUN 11, Creatinine 0.81, Est GFR (MDRD) Af Amer 124, Est GFR (MDRD) Non-Af 103, BUN/Creatinine Ratio 13.6, Glucose 103, Calcium 7.9 L, Magnesium 2.2, Iron 23 L, TIBC 107 L, Iron Saturation 21.5, Ferritin 293, Total Bilirubin 0.40, Direct Bilirubin 0.24, AST 10 L, ALT 7 L, Alkaline Phosphatase 72, Total Protein 6.7, Albumin 1.8 L, Globulin 4.9 H, Albumin/Globulin Ratio 0.4 L 10/16/23 00:29: Lactic Acid 1.9 10/16/23 06:40: WBC 7.8, RBC 3.63 L, Hgb 9.5 L, Hct 29.8 L, MCV 82.1, MCH 26.2 L, MCHC 31.9 L, RDW Std Deviation 42.7, RDW Coeff of [place] 14.3, Plt Count 529 H, MPV 8.5, Immature Gran % (Auto) 0.600, Neut % (Auto) 74.2 H, Lymph % (Auto) 12.8 L, [place] % (Auto) 10.6 H, Eos % (Auto) 1.4, Baso % (Auto) 0.4, Absolute Neuts (auto) 5.8, Absolute Lymphs (auto) 1.00, Nucleated RBC % 0 Rhythm Strip Rhythm Strip: Sinus Rhythm Rate: 95 Ectopy: None Radiology Impression Chest X-Ray 10/15/23 21:25 IMPRESSION: Emphysema without pneumonia or atelectasis. Electronically Signed: William Rivero MD at 22:03 EST ,
[2023-10-16 07:37] LABS: Anion Gap 9 (5-15); BUN 8 mg/dL (7-18); BUN/Creat Ratio 13.1 RATIO (10-20); Calcium,Total 7.3 mg/dL (8.5-10.1); Chloride 102 mmol/L (98-107); Creatinine, Serum 0.61 mg/dL (0.70-1.30); EST Glomerular Filtration Rate 141 mL/min (>60); Est Glom Filt Rate - Afr Amer 171 mL/min (>60); Estimated Creatinine Clearance 117.61 ml/min; Glucose 99 mg/dL (74-106); Magnesium 2.1 mg/dL (1.6-2.6); Phosphorus 1.7 mg/dL (2.5-4.9); Potassium 3.1 mmol/L (3.5-5.1); Sodium Level 134 mmol/L (136-145)
--- NOTE | 2023-10-16 07:54 | PN.HOSP_ITS ---
Reason for Visit Reason for Visit: Diagnoses Anemia, unspecified (10/15/23) Thrombocytosis, unspecified (10/15/23) Hypo-osmolality and hyponatremia (10/15/23) Acidosis, unspecified (10/15/23) Hypokalemia (10/15/23) Other specified diseases of intestine (10/15/23) Subjective Subjective Patient is a 63-year-old gentleman admitted with colonic mass. Arrangements were made for patient to be transferred to [facility]. Admitted pending bed availability Objective Data Objective Data Vital Signs: Vital Signs Temp Pulse Resp BP Pulse Ox O2 Del Method 98.5 F 85 16 119/89 H 97 Room Air 10/16/23 04:20 10/16/23 04:20 10/16/23 04:20 10/16/23 04:20 10/16/23 04:20 10/16/23 04:20 Oxygen Delivery Method Room Air Weight: 67.086 kg Body Mass Index (BMI) 22.4 Intake & Output: Intake and Output for Last 24 Hours 10/14/23 10/15/23 10/16/23 23:59 23:59 23:59 Intake Total 300 / 300 1120 / 1120 Balance 300 / 300 1120 / 1120 Lab / Micro Data 10/16/23 06:40 10/16/23 06:40 Labs: Laboratory Results - last 24 hr 10/15/23 19:00: WBC 10.9, RBC 4.40 L, Hgb 11.3 L, Hct 35.5 L, MCV 80.7, MCH 25.7 L, MCHC 31.8 L, RDW Std Deviation 41.9, RDW Coeff of [place] 14.2, Plt Count 725 H, MPV 8.7, Immature Gran % (Auto) 0.600, Neut % (Auto) 80.8 H, Lymph % (Auto) 9.4 L, [place] % (Auto) 7.6, Eos % (Auto) 1.1, Baso % (Auto) 0.5, Absolute Neuts (auto) 8.8 H, Absolute Lymphs (auto) 1.03, Nucleated RBC % 0, PT 13.5, INR 1.0, APTT 40.8 H, Sodium 131 L, Potassium 2.9 L, Chloride 96 L, Carbon Dioxide 28.0, Anion Gap 7, BUN 13, Creatinine 1.06, Est GFR (MDRD) Af Amer 91, Est GFR (MDRD) Non-Af 75, BUN/Creatinine Ratio 12.3, Glucose 113 H, Lactic Acid 2.1 H*, Calcium 8.8 10/15/23 21:40: Sodium Cancelled, Potassium Cancelled, Chloride Cancelled, Carbon Dioxide Cancelled, Anion Gap Cancelled, BUN Cancelled, Creatinine Cancelled, Estim Creat Clear Calc Cancelled, Est GFR (MDRD) Af Amer Cancelled, Est GFR (MDRD) Non-Af Cancelled, BUN/Creatinine Ratio Cancelled, Glucose Cancelled, Calcium Cancelled, Total Bilirubin Cancelled, Direct Bilirubin Cancelled, AST Cancelled, ALT Cancelled, Alkaline Phosphatase Cancelled, Total Protein Cancelled, Albumin Cancelled, Globulin Cancelled, Albumin/Globulin Ratio Cancelled 10/15/23 22:49: Sodium 134 L, Potassium 2.8 L, Chloride 100, Carbon Dioxide 26.0, Anion Gap 8, BUN 11, Creatinine 0.81, Est GFR (MDRD) Af Amer 124, Est GFR (MDRD) Non-Af 103, BUN/Creatinine Ratio 13.6, Glucose 103, Calcium 7.9 L, Magnesium 2.2, Iron 23 L, TIBC 107 L, Iron Saturation 21.5, Ferritin 293, Total Bilirubin 0.40, Direct Bilirubin 0.24, AST 10 L, ALT 7 L, Alkaline Phosphatase 72, Total Protein 6.7, Albumin 1.8 L, Globulin 4.9 H, Albumin/Globulin Ratio 0.4 L 10/16/23 00:29: Lactic Acid 1.9 10/16/23 06:40: WBC 7.8, RBC 3.63 L, Hgb 9.5 L, Hct 29.8 L, MCV 82.1, MCH 26.2 L , MCHC 31.9 L, RDW Std Deviation 42.7, RDW Coeff of [place] 14.3, Plt Count 529 H, MPV 8.5, Immature Gran % (Auto) 0.600, Neut % (Auto) 74.2 H, Lymph % (Auto) 12.8 L, [place] % (Auto) 10.6 H, Eos % (Auto) 1.4, Baso % (Auto) 0.4, Absolute Neuts (auto) 5.8, Absolute Lymphs (auto) 1.00, Nucleated RBC % 0, Sodium 134 L, Potassium 3.1 L, Chloride 102, Carbon Dioxide 23.0, Anion Gap 9, BUN 8, Creatinine 0.61 L, Estim Creat Clear Calc 117.61, Est GFR (MDRD) Af Amer 171, Est GFR (MDRD) Non-Af 141, BUN/Creatinine Ratio 13.1, Glucose 99, Calcium 7.3 L, Phosphorus 1.7 L, Magnesium 2.1 Radiography Diagnostic Testing: Radiology Impression Chest X-Ray 10/15/23 21:25 IMPRESSION: Emphysema without pneumonia or atelectasis. Electronically Signed: William Rivero MD at 22:03 EST , Rhythm Strip Rhythm Strip: Sinus Rhythm Rate: 95 Ectopy: None Physical Exam Narrative GENERAL: cooperative HEENT: Atraumatic; normocephalic EYES; Anicteric, Normal Conjunctiva NECK; supple, normal thyroid, RESPIRATORY: Diminished to auscultation CARDIOVASCULAR: Regular S1 S2, GI: soft, normoactive bowel sounds, : No Renal angle tenderness; EXTREMITIES: No edema, no clubbing, MUSCULOSKELETAL: no muscle wasting NEURO: Awake; no lateralizing signs. SKIN: No Rash PSYCH; Flat affect Assessment & Plan Assessment/Plan (1) Colonic mass: (2) Abdominal abscess: PLAN: Plan Patient is a 63-year-old gentleman admitted with colonic mass. Arrangements were made for patient to be transferred to [facility]. Admitted pending bed availability 1. Colonic mass -Suspect colon cancer. Patient has been accepted at [facility] for more definitive surgery with bed availability pending 2.Intra-abdominal abscess secondary to microperforation from the above Patient managed with bowel rest, Cipro and Flagyl and pain medication as needed 3. Hypokalemia -Corrected per protocol 4. Anemia - Secondary to chronic disorder monitoring H&H and transfuse if patient becomes symptomatic or hemoglobin falls below 7 5.-Mild hyponatremia ? Suspected to be secondary to hypovolemic hyponatremia patient is on IV fluid 6. Essential hypertension ? Patient antihypertensives held on admission due to relatively low blood pressure 7. Severe COPD -Stage IV by Gold classification. Patient quit smoking in 2021 plan is to continue with bronchodilator treatment as needed -PFTs from 04/11/2022 showed an FEV1 of 31% predicted. Follows with Dr. Car 8. DVT prophylaxis - On enoxaparin Time spent in the patient's overall evaluation,decision-making process, review of diagnostic data, adjustment of management, discussion with other providers, nursing nursing and ancillary staff involved in patient's care documentation, 52 minutes Charges/Coding Visit Charges Inpatient E&M: 22519 Subs Hosp L3
[2023-10-16] MEDS: Ciprofloxacin 400 MG/200 ML BAG 200 MG IV ×2 (08:50→22:54)
[2023-10-16] MEDS: Enoxaparin 40 MG/0.4 ML Syringe SC (08:50)
--- NOTE | 2023-10-16 10:37 | NURSING ---
talked to Xin at [facility] transfer center aware no bed availabe at this time, not sure it will even happen today. Dr. Finn updated.
--- NOTE | 2023-10-16 15:57 | CASEMGMT ---
According to [facility]'s website, the following tertiary facilities are in network: [place], [facility], [facility], [facility], [facility], [facility] and .
[2023-10-16] MEDS: guaiFENesin Dm 10 ML UDC PO (18:56)
[2023-10-17] MEDS: Lactated Ringers 1,000 ML 100 ML IV ×2 (04:10→16:15)
[2023-10-17 04:12] VITALS: BP 133/93; PULSE 92; RESP 16; TEMP 36.9; O2SAT 97
[2023-10-17 05:56] LABS: Absolute Lymphocyte Count 1.02 X10^3/uL (0.83-4.51); Absolute Neutrophil Count 5.2 X10^3/uL (2.0-7.7); Basophil# 0.04 X10^3/uL; Basophil% 0.5 % (0-1); Eosinophil# 0.13 X10^3/uL; Eosinophils% 1.8 % (0-5); Hematocrit 27.9 % (40-54); Lymphocyte # 1.02 X10^3/ul (0.83-4.51); Lymphocyte % 13.9 % (19-41); Mean Corp Hgb Conc 32.3 g/dL (32-36); Mean Corpuscular Hgb 26.2 pg (27.0-32.0); Mean Corpuscular Volume 81.3 fL (80-94); Mean Platelet Vol. 8.7 fl (6.2-12.0); Monocyte# 0.94 X10^3/uL; Monocyte% 12.8 % (0-10); NRBC Flagged by Analyzer 0 % (0-5); Neutrophil # 5.18 X10^3/uL (2.7-7.7); Neutrophil % 70.6 % (47-70); Platelet Count 506 K/mm3 (150-450); RBC Distribution Width CV 14.4 % (11.6-14.6); RBC Distribution Width SD 42.6 fl (35.1-43.9); Red Blood Count 3.43 M/mm3 (4.6-6.2); White Blood Count 7.3 K/mm3 (4.4-11.0)
[2023-10-17] MEDS: metroNIDAZOLE 500 MG/100 ML BAG 100 MG IV ×2 (05:59→14:02)
[2023-10-17 06:21] LABS: Anion Gap 10 (5-15); BUN 4 mg/dL (7-18); BUN/Creat Ratio 8.6 RATIO (10-20); Calcium,Total 7.3 mg/dL (8.5-10.1); Chloride 99 mmol/L (98-107); Creatinine, Serum 0.47 mg/dL (0.70-1.30); EST Glomerular Filtration Rate 193 mL/min (>60); Est Glom Filt Rate - Afr Amer 234 mL/min (>60); Estimated Creatinine Clearance 152.65 ml/min; Glucose 103 mg/dL (74-106); Magnesium 1.9 mg/dL (1.6-2.6); Phosphorus 2.2 mg/dL (2.5-4.9); Potassium 2.8 mmol/L (3.5-5.1); Sodium Level 133 mmol/L (136-145)
--- NOTE | 2023-10-17 07:24 | PCM.PN.HOSP ---
Reason for Visit Reason for Visit: Diagnoses Anemia, unspecified (10/15/23) Thrombocytosis, unspecified (10/15/23) Hypo-osmolality and hyponatremia (10/15/23) Acidosis, unspecified (10/15/23) Hypokalemia (10/15/23) Other specified diseases of intestine (10/15/23) Subjective Subjective Patient seen awaiting transfer to [facility] pain is tolerable. Objective Data Objective Data Vital Signs: Vital Signs Temp Pulse Resp BP Pulse Ox O2 Del Method 98.5 F 92 16 133/93 H 97 Room Air 10/17/23 04:12 10/17/23 04:12 10/17/23 04:12 10/17/23 04:12 10/17/23 04:12 10/17/23 04:12 Oxygen Delivery Method Room Air Weight: 67.086 kg Body Mass Index (BMI) 22.4 Intake & Output: Intake and Output for Last 24 Hours 10/15/23 10/16/23 10/17/23 23:59 23:59 23:59 Intake Total 300 / 300 2641.67 / 2641.67 1100 / 1100 Balance 300 / 300 2641.67 / 2641.67 1100 / 1100 Lab / Micro Data 10/17/23 05:00 10/17/23 05:00 Labs: Laboratory Results - last 24 hr 10/16/23 06:40: Sodium 134 L, Potassium 3.1 L, Chloride 102, Carbon Dioxide 23.0, Anion Gap 9, BUN 8, Creatinine 0.61 L, Estim Creat Clear Calc 117.61, Est GFR (MDRD) Af Amer 171, Est GFR (MDRD) Non-Af 141, BUN/Creatinine Ratio 13.1, Glucose 99, Calcium 7.3 L, Phosphorus 1.7 L, Magnesium 2.1 10/17/23 05:00: WBC 7.3, RBC 3.43 L, Hgb 9.0 L, Hct 27.9 L, MCV 81.3, MCH 26.2 L, MCHC 32.3, RDW Std Deviation 42.6, RDW Coeff of [place] 14.4, Plt Count 506 H, MPV 8.7, Immature Gran % (Auto) 0.400, Neut % (Auto) 70.6 H, Lymph % (Auto) 13.9 L, [place] % (Auto) 12.8 H, Eos % (Auto) 1.8, Baso % (Auto) 0.5, Absolute Neuts (auto) 5.2, Absolute Lymphs (auto) 1.02, Nucleated RBC % 0, Sodium 133 L, Potassium 2.8 L, Chloride 99, Carbon Dioxide 24.0, Anion Gap 10, BUN 4 L, Creatinine 0.47 L, Estim Creat Clear Calc 152.65, Est GFR (MDRD) Af Amer 234, Est GFR (MDRD) Non-Af 193, BUN/Creatinine Ratio 8.6 L, Glucose 103, Calcium 7.3 L, Phosphorus 2.2 L, Magnesium 1.9 Rhythm Strip Rhythm Strip: Sinus Rhythm Rate: 95 Ectopy: None Physical Exam Narrative GENERAL: cooperative HEENT: Atraumatic; normocephalic EYES; Anicteric, Normal Conjunctiva NECK; supple, normal thyroid, RESPIRATORY: Diminished to auscultation CARDIOVASCULAR: Regular S1 S2, GI: soft, normoactive bowel sounds, : No Renal angle tenderness; EXTREMITIES: No edema, no clubbing, MUSCULOSKELETAL: no muscle wasting NEURO: Awake; no lateralizing signs. SKIN: No Rash PSYCH; Flat affect Assessment & Plan Assessment/Plan (1) Colonic mass: (2) Abdominal abscess: PLAN: Plan Patient is a 63-year-old gentleman admitted with colonic mass. Arrangements were made for patient to be transferred to [facility]. Admitted pending bed availability 1. Colonic mass -Suspect colon cancer. Patient has been accepted at [facility] for more definitive surgery with bed availability pending 2.Intra-abdominal abscess secondary to microperforation from the above Patient managed with bowel rest, Cipro and Flagyl and pain medication as needed 3. Hypokalemia -Corrected per protocol 4. Anemia - Secondary to chronic disorder monitoring H&H and transfuse if patient becomes symptomatic or hemoglobin falls below 7 5.-Mild hyponatremia ? Suspected to be secondary to hypovolemic hyponatremia patient is on IV fluid 6. Essential hypertension ? Patient antihypertensives held on admission due to relatively low blood pressure 7. Severe COPD -Stage IV by Gold classification. Patient quit smoking in 2021 plan is to continue with bronchodilator treatment as needed -PFTs from 04/11/2022 showed an FEV1 of 31% predicted. Follows with Dr. Car 8. DVT prophylaxis - On enoxaparin Time spent in the patient's overall evaluation,decision-making process, review of diagnostic data, adjustment of management, discussion with other providers, nursing nursing and ancillary staff involved in patient's care documentation, 35 minutes Charges/Coding Visit Charges Inpatient E&M: 15798 Subs Hosp L2
[2023-10-17 07:32] VITALS: PULSE 95; RESP 16; O2SAT 97
[2023-10-17] MEDS: Budesonide Respules 0.5 MG/2 ML AMPUL.NEB. INHALATION ×2 (07:32→19:05)
[2023-10-17 10:00] VITALS: BP 137/97; PULSE 96; RESP 18; TEMP 36.7; O2SAT 98
[2023-10-17] MEDS: Enoxaparin 40 MG/0.4 ML Syringe SC (11:17)
[2023-10-17] MEDS: Ciprofloxacin 400 MG/200 ML BAG 200 MG IV (11:18)
[2023-10-17 16:00] VITALS: BP 140/98; PULSE 98; RESP 18; TEMP 36.8; O2SAT 100
--- NOTE | 2023-10-18 07:33 | DS.PCM_ITS ---
Providers Date of Admission: 10/15/23 Date of Discharge: 10/17/23 Primary Care Physician: Dr. Jina Cristina MD Consultations 10/16/23 00:06 Consult: General Surgery Routine Consulting Provider: Wally Garner Reason for Consult: colon mass-awaiting transfer EMERGENT Consult: No MD Notified: Yes Date Notified: 10/16/23 Time Notified: 08:10 Method of Notification: Text Reason For Visit: COLON MASS WITH INTRAABDOMINAL ABSCESS Diagnosis Discharge Diagnosis (1) Colonic mass: Status: Acute Code(s): K63.89 - Other specified diseases of intestine (2) Abdominal abscess: Status: Acute Plan Patient is a 63-year-old gentleman admitted with colonic mass. Arrangements were made for patient to be transferred to [facility]. Admitted pending bed availability 1. Colonic mass -Suspect colon cancer. Patient has been accepted at [facility] for more definitive surgery with bed availability pending ? Patient was transferred to [facility] once bed was obtained 2.Intra-abdominal abscess secondary to microperforation from the above Patient managed with bowel rest, Cipro and Flagyl and pain medication as needed 3. Hypokalemia -Corrected per protocol 4. Anemia - Secondary to chronic disorder monitoring H&H and transfuse if patient becomes symptomatic or hemoglobin falls below 7 5.-Mild hyponatremia ? Suspected to be secondary to hypovolemic hyponatremia patient is on IV fluid 6. Essential hypertension ? Patient antihypertensives held on admission due to relatively low blood pressure 7. Severe COPD -Stage IV by Gold classification. Patient quit smoking in 2021 plan is to continue with bronchodilator treatment as needed -PFTs from 04/11/2022 showed an FEV1 of 31% predicted. Follows with Dr. Car 8. DVT prophylaxis - On enoxaparin Time spent in the patient's overall evaluation,decision-making process, review of diagnostic data, adjustment of management, discussion with other providers, nursing nursing and ancillary staff involved in patient's care documentation, 35 minutes Medications at Discharge Home Medications blood pressure monitor #1 ea 08/27/22 budesonide 160 mcg-glycopyr 9 mcg-formot 4.8 mcg/actuation HFA inhaler (Breztri Aerosphere) 2 inh inhalation BID COPD #10.7 grams 12/30/22 Disability Placard #1 ea 07/26/23 metoprolol succinate 50 mg tablet,extended release 24 hr 50 mg PO DAILY HTN #30 tabs 07/03/23 amlodipine 2.5 mg tablet 2.5 mg PO DAILY HTN #30 tabs 10/07/23 Hospital Course Summary of Care Provided Minutes Spent on Discharge: 35 Physical Exam Narrative GENERAL: cooperative HEENT: Atraumatic; normocephalic EYES; Anicteric, Normal Conjunctiva NECK; supple, normal thyroid, RESPIRATORY: Diminished to auscultation CARDIOVASCULAR: Regular S1 S2, GI: soft, normoactive bowel sounds, : No Renal angle tenderness; EXTREMITIES: No edema, no clubbing, MUSCULOSKELETAL: no muscle wasting NEURO: Awake; no lateralizing signs. SKIN: No Rash PSYCH; Flat affect Weight / BMI Weight Weight: 67.086 kg Body Mass Index (BMI) 22.4 ABG / Lab / Microbiology Data 10/17/23 05:00 10/17/23 05:00 D/C Instructions Discharge Diet: No restrictions Discharge Activity: Return to Normal Activity Call your doctor if you observe: Fever of 101 or Higher, Shortness of breath, Fainting spells and Chest pain Meaningful Use Info Meaningful Use Diagnoses (Choose all that apply): None applicable Discharge Plan Admission Admit Date/Time: 10/15/23 22:37 Attending Provider: Collins Finn Primary Care Provider: Jina Cristina Consulting Providers: Bety Arevalo; Wally Garner Discharge Orders/Prescriptions Prescriptions: No Action (DME) blood pressure monitor Kit See Rx Instructions .Route Qty: 1 0RF Rx Instructions: As directed, check daily and as needed metoprolol succinate 50 mg tablet extended release 24 hr 50 mg PO DAILY Qty: 30 5RF Breztri Aerosphere 160-9-4.8 mcg/actuation HFA aerosol inhaler 2 inh inhalation BID Qty: 10.7 11RF (DME) Disability Placard See Rx Instructions .ROUTE .MEDSUPPLY Qty: 1 0RF Rx Instructions: expires 06/25/2028 amlodipine 2.5 mg tablet 2.5 mg PO DAILY Qty: 30 1RF Referrals / Follow Up: Jina Cristina MD [Primary Care Provider] - Disposition Disposition (needs filled in before D/C Order can be placed): Acute Care [facility] Charges/Coding Visit Charges Inpatient E&M: 22163 Disch Hosp >30min
== END 2023-10-17 19:20 | disposition short-term general hospital (02) | DRG 240 ==
LOC: ED 21:11 → MS3 23:49
PROVIDERS: Admitting Provider Internal Medicine; Emergency Provider Emergency Medicine; PCP Internal Medicine; Visit Provider Internal Medicine
DX: C18.6 Malignant neoplasm of descending colon (principal); K65.1 Peritoneal abscess; K63.1 Perforation of intestine (nontraumatic); D63.8 Anemia in other chronic diseases classified elsewhere; E87.1 Hypo-osmolality and hyponatremia; J43.9 Emphysema, unspecified; I10 Essential (primary) hypertension; E87.6 Hypokalemia; Z88.0 Allergy status to penicillin; Z87.891 Personal history of nicotine dependence
CPT/HCPCS: 36415; 71045; 74177; 80048; 80053; 82248; 82728; 83540; 83550; 83605; 83735; 84100; 85025; 85610; 85730; 87040; 93005; 94640; 94668; 97162; 99252; 99284; 99406; J7030; J7120; Q9967; A4216; G0463; J0744

== ENCOUNTER → 2023-10-15 | Outpatient (CLI) | payer MEDICAID, SELFPAY ==
--- NOTE | 2023-10-15 16:37 | CT_ITS ---
We are attempting to reach an attending provider to discuss findings. An addendum with communication details will be sent when the communication is complete. STUDY: CT ABDOMEN AND PELVIS WITH CONTRAST REASON FOR EXAM: Male, 63 years old. LLQ abdominal pain RADIATION DOSAGE (If Supplied By Facility): CTDIvol = ( 18.51 ) mGy, DLP = ( 884.83 ) mGycm TECHNIQUE: Transaxial images were obtained from the dome of the diaphragm to the symphysis pubis with oral contrast. Oral and amp; IV Readi-CAT and amp; 100mL Isovue-300 was administered. Sagittal and coronal images were reconstructed. Individualized dose optimization techniques were used for this CT. COMPARISON: None. FINDINGS: The visualized lung bases are unremarkable. The visualized portions of the heart are within normal limits. Normal liver. Normal gallbladder and extrahepatic biliary system. Normal spleen. Normal pancreas. Normal bilateral adrenal glands. Normal right kidney. Normal left kidney. Normal visualized stomach. Normal small intestine. There are multiple colonic diverticula consistent with diverticulosis. 7 cm soft tissue mass of the descending colon worrisome for colonic carcinoma. There is stranding of the fat extending into the left paracolic gutter with a sinus tract extends laterally into a 4 cm fluid collection with an air-fluid level in the paracolic gutter adjacent to the musculature of the abdominal wall worrisome for an abscess. Furthermore, there is a 2.5 cm bilobed fluid collection with an air-fluid level within the musculature of the anterior bowel wall worrisome for penetrating abscess. The appendix is visualized and appears normal. Normal abdominal aorta. Normal inferior vena cava. Normal retroperitoneum. Normal urinary bladder. Normal abdominal wall. Normal osseous structures. 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 Electronically Signed: William Rivero MD at 17:18 EST ,
== END | disposition home or self-care (01) ==
LOC: CT 16:36
PROVIDERS: PCP Internal Medicine; Referring Provider Internal Medicine; Visit Provider Internal Medicine
DX: R10.32 Left lower quadrant pain (principal)
CPT/HCPCS: 74177; Q9967

== ENCOUNTER → 2023-11-03 | Outpatient (REF) | payer MEDICAID, SELFPAY ==
[2023-11-03 08:08] LABS: Hematocrit 23.8 % (40-54); Hemoglobin 7.5 g/dL (13.0-16.5); Mean Corp Hgb Conc 31.5 g/dL (32-36); Mean Corpuscular Hgb 27.9 pg (27.0-32.0); Mean Corpuscular Volume 88.5 fL (80-94); Mean Platelet Vol. 9.2 fl (6.2-12.0); POSITIVE MORPHOLOGY YES; Platelet Count 491 K/mm3 (150-450); RBC Distribution Width CV 23.3 % (11.6-14.6); RBC Distribution Width SD 74.2 fl (35.1-43.9); Red Blood Count 2.69 M/mm3 (4.6-6.2); White Blood Count 6.9 K/mm3 (4.4-11.0)
[2023-11-03 08:44] LABS: Anion Gap 8 (5-15); BUN 4 mg/dL (7-18); BUN/Creat Ratio 7.9 RATIO (10-20); Calcium,Total 8.1 mg/dL (8.5-10.1); Chloride 103 mmol/L (98-107); Creatinine, Serum 0.51 mg/dL (0.70-1.30); EST Glomerular Filtration Rate 176 mL/min (>60); Est Glom Filt Rate - Afr Amer 212 mL/min (>60); Glucose 96 mg/dL (74-106); Sodium Level 134 mmol/L (136-145)
[2023-11-04 10:32] LABS: Absolute Lymphocyte Count 0.93 X10^3/uL (0.83-4.51); Basophil# 0.05 X10^3/uL; Basophil% 0.7 % (0-1); Eosinophil# 0.13 X10^3/uL; Eosinophils% 1.9 % (0-5); Lymphocyte # 0.93 X10^3/ul (0.83-4.51); Lymphocyte % 13.9 % (19-41); Monocyte# 0.57 X10^3/uL; Monocyte% 8.5 % (0-10); NRBC Flagged by Analyzer 0 % (0-5); Neutrophil % 74.6 % (47-70)
== END | disposition home or self-care (01) ==
LOC: OLS.SW 04:40
PROVIDERS: PCP Internal Medicine; Visit Provider Internal Medicine
DX: D64.9 Anemia, unspecified (principal); C18.9 Malignant neoplasm of colon, unspecified; J44.9 Chronic obstructive pulmonary disease, unspecified; I10 Essential (primary) hypertension; E87.6 Hypokalemia; K21.9 Gastro-esophageal reflux disease without esophagitis; N40.0 Benign prostatic hyperplasia without lower urinary tract symptoms; M62.838 Other muscle spasm
CPT/HCPCS: 36415; 80048; 83735; 85025

== ENCOUNTER 2023-11-09 15:00 | Emergency (ER) | payer MEDICAID, SELFPAY ==
[2023-11-09] VITALS (21 sets, daily range): BP systolic 83–97; BP diastolic 55–72; PULSE 107–173; RESP 22–34; TEMP 36.4–36.7; O2SAT 92–100; BMI 22.1
--- NOTE | 2023-11-09 15:14 | EKG12_ITS ---
Test Reason : HIGH HR Blood Pressure : / mmHG Vent. Rate : 178 BPM Atrial Rate : 147 BPM P-R Int : 000 ms QRS Dur : 070 ms QT Int : 238 ms P-R-T Axes : 000 054 -87 degrees QTc Int : 409 ms Critical Test Result: High HR AFIB ST & T wave abnormality, consider anterolateral ischemia Abnormal ECG Confirmed by ADDISON BUSCH, DON ([id number]), book editor ROGERIO MCFARLAND ([id number]) on 11/17/2023 6:47:45 AM Referred By: PL Confirmed By:JADIEL JAIME MD
[2023-11-09] MEDS: 0.9% Normal Saline (1000mL) 1,000 ML 999 ML IV ×2 (15:15→15:40)
--- NOTE | 2023-11-09 15:33 | EX.ED.DYSGE1 ---
HPI History of Present Illness Chief Complaint: Shortness of Breath Informant: patient Narrative Narrative: Sent from [facility] due to fever and tachycardia. Patient states that he might feel just a little bit more short of breath than he has over the past year and a half since he was diagnosed with COPD. But he does not have any chest pain. He does not notice that his heart rate is going very fast. He has no history of A-fib or flutter. He overall states he feels about the same ways felt over the last year and a half. Patient is at [facility] because he had surgery for colon cancer a few weeks ago up at [facility]. He had just gotten very weak from not eating or walking for about 9 or 10 days and that is why he is in rehab. He is also never had a DVT or PE. He is not on any anticoagulation. Denies sputum. He did have a fever 102.8 documented at [facility] but received Tylenol prior to arrival. [facility] Medical History (Updated 11/09/23 @ 23:[address] Allan Dash MD) Adult failure to thrive Chronic cough COPD (chronic obstructive pulmonary disease) Former smoker History of broken finger History of fracture of clavicle History of pneumonia History of rib fracture History of toe fracture HTN (hypertension) Hx of bronchitis Hypertension Seasonal allergies Stage 4 very severe COPD by GOLD classification Home Medications blood pressure monitor #1 ea 08/27/22 [Rx Last Taken Unknown] budesonide 160 mcg-glycopyr 9 mcg-formot 4.8 mcg/actuation HFA inhaler (Breztri Aerosphere) 2 inh inhalation BID COPD #10.7 grams 12/30/22 [Rx Last Taken Unknown] Disability Placard #1 ea 06/25/23 [Rx Last Taken Unknown] metoprolol succinate 50 mg tablet,extended release 24 hr 50 mg PO DAILY HTN #30 tabs 07/03/23 [Rx Last Taken Unknown] amlodipine 2.5 mg tablet 2.5 mg PO DAILY HTN #30 tabs 10/07/23 [Rx Last Taken Unknown] acetaminophen 325 mg capsule 650 mg PO Q4H PRN fever or pain 11/09/23 [History Last Taken Unknown] cyclobenzaprine 5 mg tablet 5 mg PO TID 11/09/23 [History Last Taken Unknown] pantoprazole 40 mg tablet,delayed release 40 mg PO DAILY 11/09/23 [History Last Taken Unknown] tamsulosin 0.4 mg capsule 0.4 mg PO Q24H 11/09/23 [History Last Taken Unknown] Allergy/AdvReac Type Severity Reaction Status Date / Time Penicillins AdvReac NEEDS Verified 11/09/23 15:11 FOLLOW-UP Family History Uncle Diabetes Father Cancer Kidney disease Grandfather COPD (chronic obstructive pulmonary disease) Brother Hypertension Mother Heart disease Peripheral vascular disease Grandfather Heart disease Diabetes Uncle Alcoholism Surgical History History of tonsillectomy Social History household members: none current occupational status: disabled Smoking Status: Former smoker quit date: 12/01/21 pack-years: 29 Tobacco: How many years used: 29 Electronic Cigarette Use: not used how long ago did patient quit smokin 24 pack year history second hand exposure: No alcohol intake: current alcohol intake frequency: 0-2 drinks per day Alcohol type: beer substance use type: does not use what type of physical activity do you participate in: walking frequency: 3-4 times per week do you feel safe at home: Yes ROS ROS ED ROS Narrative A complete review of systems was performed and is negative except as documented in the history of present illness. Some specific details below. Constitutional: No recent chills but he does have a documented fever of 102.8 prior to arrival. EYE: No discharge, visual complaints, or pain. ENT: No difficulty swallowing. No swelling. No pain. No reflux symptoms. CV: Denies chest pain or palpitations even though his heart rate is going anywhere from about 130s up to 190. Respiratory: See history of present illness. COPD. He is not on oxygen normally though. He states his breathing might be just a little shorter than normal but it is a small change. GI: No abdominal pain. No nausea vomiting diarrhea. No blood in stool. Says surgery is gone well. His incision is not hurting. He is eating and drinking and moving his bowels normally. No melena. : No frequency dysuria or hematuria. Musculoskeletal: No recent trauma. No pains. No swelling. Skin: No rash. Nondiaphoretic. Neuro: No weakness or numbness. Endocrine: No polyuria or polydipsia. EXAM Physical Exam Narrative Exam Narrative: CONSTITUTIONAL: Patient is nontoxic in appearance. The patient looks comfortable. Work of breathing looks normal. HEENT: No notable trauma. Mucous membranes moist. No sinus tenderness. No indication of pain with swallowing. EYES: No conjunctival injection. No proptosis. He does appear to have some pallor of conjunctive a. NECK:No JVD. No stridor. CARDIOVASCULAR: Patient is tachycardic with an irregularly irregular rhythm consistent with atrial fibrillation. I am not able to hear a murmur. RESPIRATORY: No respiratory distress. Saturations are 100% on 2 L showing no hypoxia at that level. But he has very poor air motion. But he states he feels comfortable. GASTROINTESTINAL: Not distended. Bowel sounds are normal. No tenderness. No guarding. No rebound. No palpable mass. No bruit is heard. Is a well-healed incision in the lower abdomen. No sign of infection or drainage. GENITOURINARY: No tenderness over the bladder. No CVA tenderness. MUSCULOSKELETAL: Atraumatic. No peripheral edema. No cord. No tenderness along the deep venous system. No asymmetry. No distended veins. NEUROLOGICAL: Patient is alert and appropriate. No focal deficit noted. Sleepy or lethargic. He is not confused. SKIN: No noted rashes. No diaphoresis. Mild pallor. PSYCHIATRIC: Patient is calm. Mood is appropriate. Const Vital Signs: 11/09/23 15:02 11/09/23 15:06 11/09/23 15:10 Temperature 98.0 F 98.0 F Temperature Source Oral Oral Pulse Rate 173 H 145 H Respiratory Rate 32 H 32 H Respiratory Effort Short of Breath Labored Respiratory Pattern Hyperpnea Blood Pressure 95/72 95/72 Blood Pressure Mean 79 79 Pulse Ox 93 99 Oxygen Delivery Method Nasal Cannula Nasal Cannula Nasal Cannula Oxygen Flow Rate (L/min) 3 3 3 11/09/23 15:40 11/09/23 15:33 11/09/23 15:49 Temperature 97.6 F L Temperature Source Oral Pulse Rate 160 H 129 H Respiratory Rate 34 H 30 H Respiratory Effort Respiratory Pattern Blood Pressure 83/67 L 89/55 L Blood Pressure Mean 72 66 Pulse Ox 100 100 100 Oxygen Delivery Method Nasal Cannula Nasal Cannula Oxygen Flow Rate (L/min) 3 2 3 11/09/23 16:50 11/09/23 17:00 11/09/23 17:00 Temperature 97.6 F L Temperature Source Oral Pulse Rate 120 H 111 H 111 H Respiratory Rate 26 H 22 H Respiratory Effort Respiratory Pattern Blood Pressure 96/69 92/69 Blood Pressure Mean 78 76 Pulse Ox 100 96 Oxygen Delivery Method Room Air Oxygen Flow Rate (L/min) 2 11/09/23 16:57 11/09/23 17:12 11/09/23 17:27 Temperature 97.6 F L 97.6 F L 97.7 F L Temperature Source Oral Oral Oral Pulse Rate 111 H 117 H 113 H Respiratory Rate 22 H 24 H 24 H Respiratory Effort Respiratory Pattern Blood Pressure 92/69 95/70 91/63 Blood Pressure Mean 76 78 72 Pulse Ox 96 96 96 Oxygen Delivery Method Room Air Room Air Room Air Oxygen Flow Rate (L/min) 11/09/23 17:42 11/09/23 17:57 11/09/23 18:00 Temperature 97.8 F 97.8 F 97.8 F Temperature Source Oral Oral Oral Pulse Rate 108 H 112 H 112 H Respiratory Rate 26 H 26 H 26 H Respiratory Effort Respiratory Pattern Blood Pressure 92/68 92/67 92/67 Blood Pressure Mean 76 75 75 Pulse Ox 92 93 93 Oxygen Delivery Method Room Air Room Air Room Air Oxygen Flow Rate (L/min) 11/09/23 18:28 11/09/23 18:57 11/09/23 18:57 Temperature 97.7 F L Temperature Source Temporal Pulse Rate 114 H 107 H Respiratory Rate 24 H 24 H Respiratory Effort Respiratory Pattern Blood Pressure 90/67 97/70 97/70 Blood Pressure Mean 74 79 79 Pulse Ox 95 95 Oxygen Delivery Method Room Air Oxygen Flow Rate (L/min) 11/09/23 19:53 11/09/23 21:12 11/09/23 21:00 Temperature 97.8 F 97.9 F Temperature Source Oral Oral Pulse Rate 108 H 119 H 115 H Respiratory Rate 25 H 28 H 28 H Respiratory Effort Respiratory Pattern Blood Pressure 93/72 92/72 92/72 Blood Pressure Mean 79 78 78 Pulse Ox 95 99 99 Oxygen Delivery Method Room Air Room Air Room Air Oxygen Flow Rate (L/min) 11/09/23 22:00 11/09/23 22:13 Temperature 97.8 F 97.8 F Temperature Source Oral Pulse Rate 112 H 110 H Respiratory Rate 28 H 28 H Respiratory Effort Respiratory Pattern Blood Pressure 97/67 97/67 Blood Pressure Mean 77 77 Pulse Ox 97 97 Oxygen Delivery Method Room Air Oxygen Flow Rate (L/min) MDM MDM MDM Narrative Medical decision making narrative: My independent interpretation of a single view chest x-ray shows no acute process but there are chronic changes. This is similar to final reading. Patient CBC shows mild elevation of white count 11.6 but this is a little bit up over his baseline. His hemoglobin is low at 7.6 but this is similar to his baseline from our prior labs. He has no history of bleeding. His platelets were normal. Patient's electrolytes show no acute process. His creatinine is up a bit over his baseline even though it is normal at 0.92. Troponin was negative. BNP was slightly up at 422. Graph patient's deep dimer was high at 2.51. We did order CTA of the chest because of the high D-dimer, tachycardia, immobilization and cancer. But because he also had a reported fever we did continue these images down through the abdomen and pelvis. My independent interpretation of the patient's CTA of the chest abdomen pelvis does not show pneumonia or PE. But I am concerned about inflammatory process and possible abscess versus postsurgical changes in the left lower quadrant. Final reading is pending. Patient is given 30 cc/kg for sepsis fluids but he is also a bit dry. His blood pressure is low but he is awake alert mentating normally and he has a mean blood pressure of 70. I do not think he needs pressors at this point. I think this may worsen his tachycardia. He is on Cardizem at 5 mg. His heart rate is down to about 115/119 now. I have also given him antibiotics. Although he has a reported history of allergy to penicillin, when I ask him about this he states he has never had it. He has a family history of people getting real sick when taken penicillin. He has no actual known allergy. I discussed the CT with the radiologist. We then brought up old images. He states this abscess is larger and appears to involve small bowel rather than large bowel at this time. I then called [facility] as the patient just had surgery there. They are going to call me back. They spoke with surgeon, Dr. Rasheed. He recommends sending the patient to the emergency department and they will see them there and evaluate for appropriate disposition. I then spoke with Dr. Lucio in the emergency department. Patient will be transferred up. He is still feeling well. We rechecked his lactate and it has come down. His heart rate has stabilized between 101 10. His blood pressure has been a bout high 90s over mid 60s and a mean in the mid 70s. I do not think he needs pressors. Lab Data Attestation: I reviewed the patient's lab results. Labs: Laboratory Results - last 24 hr 11/09/23 11/09/23 15:14 19:43 WBC 11.6 H RBC 2.81 L Hgb 7.6 L Hct 26.3 L MCV 93.6 MCH 27.0 MCHC 28.9 L RDW Std Deviation 73.3 H RDW Coeff of [place] 21.9 H Plt Count 402 MPV 10.0 Immature Gran % (Auto) 1.200 H Neut % (Auto) 79.2 H Lymph % (Auto) 8.3 L [place] % (Auto) 10.5 H Eos % (Auto) 0.3 Baso % (Auto) 0.5 Absolute Neuts (auto) 9.2 H Absolute Lymphs (auto) 0.96 Nucleated RBC % 0 Differential Comment SCANNED Anisocytosis 1+ D-Dimer Quant (PE/DVT) 2.51 H* Sodium 134 L Potassium 3.6 Chloride 105 Carbon Dioxide 21.0 Anion Gap 8 BUN 12 Creatinine 0.92 Estim Creat Clear Calc 77.19 Est GFR (MDRD) Af Amer 107 Est GFR (MDRD) Non-Af 89 BUN/Creatinine Ratio 13.1 Glucose 111 H Lactic Acid 2.0 0.9 Calcium 8.8 Troponin I High Sens 16 B-Natriuretic Peptide 422.4 H Radiography Diagnostic Testing: Clinical Impression(s) from Imaging Studies Chest X-Ray 11/09/23 15:45 IMPRESSION: There are no acute findings. Electronically Signed: Klever Roa MD at 16:23 EST , Chest/Abdomen/Pelvis CTA 11/09/23 16:19 IMPRESSION: 1. No demonstrated pulmonary embolism or arterial dissection. 2. Extending from the left lower quadrant small bowel there is an abscess in the left psoas muscle and left paracolic gutter. This measures 9.2 x 10.5 x 5.1 cm. This may be a spontaneous abscess of the left psoas muscle extending to the small bowel or from the small bowel into the psoas muscle. Electronically Signed: Klever Roa MD at 17:34 EST , ADDENDUM: 11/09/23 175 IMPRESSION: 1. No demonstrated pulmonary embolism or arterial dissection. 2. Extending from the left lower quadrant small bowel there is an abscess in the left psoas muscle and left paracolic gutter. This measures 9.2 x 10.5 x 5.1 cm. This may be a spontaneous abscess of the left psoas muscle extending to the small bowel or from the small bowel into the psoas muscle. N.B. : The above Results were Read Back by Klever Roa MD to Allan Dash MD, and understanding confirmed on 11/09/2023 17:45:59 (ET). Electronically Signed: Klever Roa MD at 17:34 EST , ADDENDUM: 11/09/23 [id number] IMPRESSION: undefined EKG Initial EKG: Comments: My independent interpretation of the patient's EKG shows atrial fibrillation with a rate of 178. There are some diffuse ST and T wave changes but no ST elevation. No ventricular ectopy is noted. QRS duration and QTc are normal. This is a change from 15 October of this year. Critical Care Time Critical Care Time: Yes Critical care time (excluding procedures): 30-74 minutes, Including time spent:, Discussing w/Patient &/or Family/Estimation Manager, Discussing w/Consultants, Arranging Admission or Transfer, Performing Direct Patient Care at Bedside and - (2 minutes, repeat evaluations, meds, IV fluids, antibiotics, discussion with consultants) Discharge Plan Triage Chief Complaint: Shortness of Breath ED Provider: Allan Dash Dx/Rx/DC Orders Clinical Impression: History of COPD, History of colon cancer, Sepsis, Psoas abscess, left, Atrial fibrillation with rapid ventricular response Prescriptions: No Action (DME) blood pressure monitor Kit See Rx Instructions .Route Qty: 1 0RF Rx Instructions: As directed, check daily and as needed metoprolol succinate 50 mg tablet extended release 24 hr 50 mg PO DAILY Qty: 30 5RF acetaminophen 325 mg capsule 650 mg PO Q4H PRN (Reason: fever or pain) cyclobenzaprine 5 mg tablet 5 mg PO TID pantoprazole 40 mg tablet,delayed release (DR/EC) 40 mg PO DAILY tamsulosin 0.4 mg capsule 0.4 mg PO Q24H Breztri Aerosphere 160-9-4.8 mcg/actuation HFA aerosol inhaler 2 inh inhalation BID Qty: 10.7 11RF (DME) Disability Placard See Rx Instructions .ROUTE .MEDSUPPLY Qty: 1 0RF Rx Instructions: expires 06/25/2028 amlodipine 2.5 mg tablet 2.5 mg PO DAILY Qty: 30 1RF Primary Care Provider: Jina Cristina Referrals: Jina Cristina MD [Primary Care Provider] - Disposition Disposition: Acute Care Hospital Discharge Location: [facility] Discharge Date/Time: 11/09/23 23:36
[2023-11-09] MEDS: Diltiazem 125 MG in Dextrose 5%-Water (100mL Bag) 100 ML CONT INF (15:40)
[2023-11-09 15:42] LABS: Absolute Lymphocyte Count 0.96 X10^3/uL (0.83-4.51); Absolute Neutrophil Count 9.2 X10^3/uL (2.0-7.7); Basophil# 0.06 X10^3/uL; Basophil% 0.5 % (0-1); Eosinophil# 0.03 X10^3/uL; Eosinophils% 0.3 % (0-5); Hematocrit 26.3 % (40-54); Hemoglobin 7.6 g/dL (13.0-16.5); Lymphocyte # 0.96 X10^3/ul (0.83-4.51); Lymphocyte % 8.3 % (19-41); Mean Corp Hgb Conc 28.9 g/dL (32-36); Mean Corpuscular Volume 93.6 fL (80-94); Monocyte# 1.22 X10^3/uL; Monocyte% 10.5 % (0-10); NRBC Flagged by Analyzer 0 % (0-5); Neutrophil # 9.22 X10^3/uL (2.7-7.7); Neutrophil % 79.2 % (47-70); POSITIVE MORPHOLOGY YES; Platelet Count 402 K/mm3 (150-450); RBC Distribution Width CV 21.9 % (11.6-14.6); RBC Distribution Width SD 73.3 fl (35.1-43.9); Red Blood Count 2.81 M/mm3 (4.6-6.2); White Blood Count 11.6 K/mm3 (4.4-11.0)
[2023-11-09 15:43] LABS: Differential Indicated SCAN CRITERIA MET
--- NOTE | 2023-11-09 15:45 | RAD_ITS ---
STUDY: XR Chest 1 View 11/09/2023 3:45 PM REASON FOR EXAM: Male, 63 years old. SOB COMPARISON: 10/15/2023 TECHNIQUE: XR Chest 1 View FINDINGS: There is no demonstrated pleural abnormality. The lung valiente are hyperexpanded. Bleb or bullae in The upper lobe. Normal heart size. Normal mediastinum. Normal cynthia. Prominent appearing increased interstitial lung markings. Normal visualized pulmonary arteries. There is atherosclerotic calcification of the aortic arch with tortuosity. There are diffuse degenerative changes of the visualized thoracic spine. There is degenerative osteoarthritis of the bilateral shoulders. There are no acute findings of the upper abdomen. RAD/Chest 1 View (Portable) IMPRESSION: There are no acute findings. Electronically Signed: Klever Roa MD at 16:23 EST ,
[2023-11-09 15:53] LABS: D-Dimer Quantitative (DVT/PE) 2.51 FEU/ug/m (0.27-0.49)
[2023-11-09 15:54] LABS: Differential Comment SCANNED
[2023-11-09 15:55] LABS: Anisocytosis 1+
[2023-11-09 16:01] LABS: BNP,B-Type NATRIURETIC PEPTIDE 422.4 pg/mL (0-100)
[2023-11-09 16:04] LABS: Anion Gap 8 (5-15); BUN 12 mg/dL (7-18); BUN/Creat Ratio 13.1 RATIO (10-20); Calcium,Total 8.8 mg/dL (8.5-10.1); Chloride 105 mmol/L (98-107); Creatinine, Serum 0.92 mg/dL (0.70-1.30); EST Glomerular Filtration Rate 89 mL/min (>60); Est Glom Filt Rate - Afr Amer 107 mL/min (>60); Estimated Creatinine Clearance 77.19 ml/min; Glucose 111 mg/dL (74-106); Potassium 3.6 mmol/L (3.5-5.1); Sodium Level 134 mmol/L (136-145); Troponin-I HS 16 pg/mL (3.0-78.0)
--- NOTE | 2023-11-09 16:19 | CT_ITS ---
We are attempting to reach an attending provider to discuss findings. An addendum with communication details will be sent when the communication is complete. EXAM: CT ANGIOGRAPHY CHEST, ABDOMEN AND PELVIS WITH INTRAVENOUS CONTRAST CLINICAL INDICATION: PE, fever, infection TECHNIQUE: Helically acquired angiography images were obtained of the chest, abdomen and pelvis with intravenous contrast. This CT exam was performed using one or more of the following dose reduction techniques: automated exposure control, adjustment of the mA and/or kV according to patient size, and/or use of iterative reconstruction technique. MIP reconstructed images were created and reviewed. CONTRAST: IV 100mL Isovue-370 RADIATION DOSE: CTDIvol = 9.61 mGy, DLP = 908.38 mGy-cm COMPARISON: No relevant prior studies available. FINDINGS: VASCULATURE: AORTA: There is atherosclerotic calcification of the aortic arch with tortuosity and elongation of the aortic arch and descending thoracic aorta. There are calcifications of the abdominal aorta. This is consistent for atherosclerotic disease. There is NO abdominal aortic aneurysm. Vascular workup can be obtained based on clinical correlation. Normal inferior vena cava. Subcentimeter mesenteric lymph nodes. No dissection. PULMONARY ARTERIES: Unremarkable. No demonstrated pulmonary embolism or arterial dissection. GREAT VESSELS OF AORTIC ARCH: Unremarkable. Normal in caliber. No dissection. CELIAC TRUNK AND MESENTERIC ARTERIES: No acute findings. No occlusion or significant stenosis. No dissection. RENAL ARTERIES: No acute findings. No occlusion or significant stenosis. No dissection. ILIAC ARTERIES: No acute findings. No occlusion or significant stenosis. No dissection. CHEST: LUNGS AND PLEURAL SPACES: Unremarkable. No mass. No consolidation or edema. No pleural effusion or thickening. No pneumothorax. HEART: There are calcifications of the coronary arteries. Heart size is normal. No pericardial effusion. MEDIASTINUM: Unremarkable. No mediastinal or hilar adenopathy. Esophagus is unremarkable. No hiatal hernia. THYROID: Unremarkable. No thyroid lesions. ABDOMEN: LIVER: Unremarkable. Homogeneous. No focal mass. GALLBLADDER AND BILE DUCTS: Unremarkable. No calcified gallstones. No gallbladder distention or wall edema. No intra- or extrahepatic biliary ductal dilation. PANCREAS: Unremarkable. No focal cystic or solid mass. SPLEEN: Unremarkable. Normal size without focal cystic or solid mass. ADRENALS: Unremarkable. No nodules. KIDNEYS AND URETERS: Non obstructive 2 mm right renal parenchymal stones. Normal renal size and position. No acute findings of the left kidney. STOMACH AND BOWEL: Rectosigmoid anastomosis. Extending from the left lower quadrant small bowel there is an abscess in the left psoas muscle and left paracolic gutter. This measures 9.2 x 10.5 x 5.1 cm. This may be a spontaneous abscess of the left psoas muscle extending to the small bowel or from the small bowel into the psoas muscle. No stomach or bowel distention. No focal inflammatory change. PELVIS: APPENDIX: The appendix is visualized and appears normal. BLADDER: Unremarkable. REPRODUCTIVE: Unremarkable as visualized. No mass. CHEST, ABDOMEN and PELVIS: INTRAPERITONEAL SPACE: Unremarkable. No ascites or other fluid collection. No free air. BONES/JOINTS: There are degenerative changes of the shoulders. There are multi-level degenerative changes of the thoracic spine. No suspicious lytic or blastic abnormality. SOFT TISSUES: See above. LYMPH NODES: See above. OTHER FINDINGS: Post-processing of the angiographic images was performed, with axial imaging and 3D reconstruction. MIPS images were obtained. Non standard communication findings protocol was initiated. 11/09/2023 5:[address]/CTA Chst, Abd, Pel W and/or WO IMPRESSION: 1. No demonstrated pulmonary embolism or arterial dissection. 2. Extending from the left lower quadrant small bowel there is an abscess in the left psoas muscle and left paracolic gutter. This measures 9.2 x 10.5 x 5.1 cm. This may be a spontaneous abscess of the left psoas muscle extending to the small bowel or from the small bowel into the psoas muscle. Electronically Signed: Klever Roa MD at 17:34 EST ,
[2023-11-09] MEDS: 0.9% Normal Saline (500mL Bag) 500 ML 999 ML IV (16:53)
[2023-11-09] MEDS: Piperacil/Tazobactam 4.5 GM in 0.9% Normal Saline (100mL MB+) 100 ML IV (16:59)
--- NOTE | 2023-11-09 18:03 | ED.RN ---
NATALIYA LOVELACE AT [facility] ASKING FOR UPDATE ON PATIENT. NATALIYA UPDATED THE PLAN IS TO TRANSFER HIM TO [facility]. NO FURTHER QUESTIONS
[2023-11-09 19:27] LABS: Reflex Lactate? Y
--- NOTE | 2023-11-09 19:48 | ED.RN ---
CALLED PHYSICIANS AT 1945 FOR AN UPDATE ON THE REQUESTED OUT[facility] THEY TRIED 4 DIFFERENT PLACES ALL AROUND 1900 AND ALL WERE UNAVAILABLE. STEPHANIE GODFREY, [facility], [facility], [facility]
[2023-11-09 20:15] LABS: Lactic Acid 0.9 mmol/L (0.4-1.9)
--- NOTE | 2023-11-09 21:09 | ED.RN ---
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 THEY SAID THEY TRIED OUTSOURCING AGAIN AT 2044 RPANAY BUT NO ONE WAS AVAILABLE. I THEN CALLED [facility] AT 2058 TO ASK IF THEY HAD AVAILABILITY TO TRANSPORT OUR PATIENT. THEY SAID YES AND GAVE AN ETA OF [phone]. I ASKED [facility] IF PHYSICIANS ACTUALLY TRIED TO CALL THEM TO OUT[facility], [facility] SAID YES, THEY SPOKE TO VANIA AND AT THE TIME [facility] WAS UNAVAILABLE BUT DUE TO A CANCELATION THEY ARE AVAILABLE NOW.
--- NOTE | 2023-11-11 00:58 | ED.RN ---
Lab called with positive preliminary blood culture. Called and gave result to primary RN at [facility].
== END 2023-11-09 23:36 | disposition short-term general hospital (02) ==
LOC: ED 15:16
PROVIDERS: Emergency Provider Emergency Medicine; PCP Internal Medicine; Visit Provider Emergency Medicine
DX: A41.9 Sepsis, unspecified organism (principal); J44.9 Chronic obstructive pulmonary disease, unspecified; I48.91 Unspecified atrial fibrillation; K68.12 Psoas muscle abscess; I10 Essential (primary) hypertension; Z79.899 Other long term (current) drug therapy; Z87.891 Personal history of nicotine dependence
CPT/HCPCS: 36415; 71045; 71275; 74174; 80048; 83605; 83880; 84484; 85025; 85379; 87040; 87077; 87186; 87428; 93005; 96365; 96366; 96367; 99285; J7030; J7040; Q9967; A4216

== ENCOUNTER 2023-11-22 12:46 | Emergency (ER) | payer MEDICAID, SELFPAY ==
[2023-11-22 12:46] VITALS: BP 128/106; PULSE 136; RESP 20; TEMP 35.9; O2SAT 100; BMI 21.2
--- NOTE | 2023-11-22 13:42 | CT_ITS ---
STUDY: CT ABDOMEN AND PELVIS WITH CONTRAST REASON FOR EXAM: Male, 63 years old. left abdominal abscesses pain. RADIATION DOSAGE (If Supplied By Facility): CTDIvol = ( 13.36 ) mGy, DLP = ( 674.34 ) mGycm TECHNIQUE: Transaxial images were obtained from the dome of the diaphragm to the symphysis pubis without oral contrast. IV 75mL Isovue-370 was administered. Sagittal and coronal images were reconstructed. Individualized dose optimization techniques were used for this CT. COMPARISON: 11/09/2023 FINDINGS: The visualized lung bases are unremarkable. The visualized portions of the heart are within normal limits. Normal liver. Normal gallbladder and extrahepatic biliary system. Normal spleen. Normal pancreas. Normal bilateral adrenal glands. Normal right kidney. Normal left kidney. Normal visualized stomach. Normal small intestine. Suture line in the mid sigmoid colon. The appendix is visualized and appears normal. Normal abdominal aorta. Normal inferior vena cava. Interval placement of 2 percutaneous drains within abscesses within the abdomen with interval resolution of the abscesses. One was located in the left paracolic gutter and the other was located between the left psoas muscle in the iliac crest. Normal urinary bladder. Normal abdominal wall. Normal osseous structures. CT/Abdomen/Pelvis W IV Cont ONLY IMPRESSION: Interval placement of 2 percutaneous drains within the left flank with resolution of abscesses in the left paracolic gutter and between the left psoas muscle and iliac crest. No other acute abnormality. Electronically Signed: William Rivero MD at 15:53 EST ,
--- NOTE | 2023-11-22 13:43 | EKG12_ITS ---
Test Reason : CHEST PAIN Blood Pressure : / mmHG Vent. Rate : 114 BPM Atrial Rate : 114 BPM P-R Int : 096 ms QRS Dur : 074 ms QT Int : 350 ms P-R-T Axes : 051 036 036 degrees QTc Int : 482 ms Sinus tachycardia with short VA Nonspecific ST and T wave abnormality Abnormal ECG Confirmed by EZEQUIEL BUSCH, EB ([id number]), newspaper copy editor ROGERIO MCFARLAND ([id number]) on 12/02/2023 8:50:46 AM Referred By: Confirmed By:EB NIEVES MD
[2023-11-22] MEDS: Ondansetron 4 MG/2 ML Vial IV (13:52)
[2023-11-22] MEDS: Morphine 4 MG/ML Syringe IV (13:52)
[2023-11-22 14:04] LABS: Absolute Lymphocyte Count 1.41 X10^3/uL (0.83-4.51); Absolute Neutrophil Count 4.1 X10^3/uL (2.0-7.7); Basophil# 0.04 X10^3/uL; Basophil% 0.6 % (0-1); Eosinophil# 0.13 X10^3/uL; Eosinophils% 2.1 % (0-5); Hematocrit 36.3 % (40-54); Hemoglobin 11.3 g/dL (13.0-16.5); Lymphocyte # 1.41 X10^3/ul (0.83-4.51); Lymphocyte % 22.9 % (19-41); Mean Corp Hgb Conc 31.1 g/dL (32-36); Mean Corpuscular Hgb 28.4 pg (27.0-32.0); Mean Corpuscular Volume 91.2 fL (80-94); Monocyte# 0.45 X10^3/uL; Monocyte% 7.3 % (0-10); NRBC Flagged by Analyzer 0 % (0-5); Neutrophil # 4.11 X10^3/uL (2.7-7.7); Neutrophil % 66.8 % (47-70); POSITIVE MORPHOLOGY YES; Platelet Count 645 K/mm3 (150-450); RBC Distribution Width CV 22.9 % (11.6-14.6); RBC Distribution Width SD 73.6 fl (35.1-43.9); Red Blood Count 3.98 M/mm3 (4.6-6.2); White Blood Count 6.2 K/mm3 (4.4-11.0)
[2023-11-22 14:10] LABS: Anion Gap 6 (5-15); BUN 15 mg/dL (7-18); BUN/Creat Ratio 13.9 RATIO (10-20); Calcium,Total 9.4 mg/dL (8.5-10.1); Chloride 107 mmol/L (98-107); Creatinine, Serum 1.08 mg/dL (0.70-1.30); EST Glomerular Filtration Rate 73 mL/min (>60); Est Glom Filt Rate - Afr Amer 89 mL/min (>60); Estimated Creatinine Clearance 62.93 ml/min; Glucose 171 mg/dL (74-106); Potassium 3.6 mmol/L (3.5-5.1); Sodium Level 139 mmol/L (136-145)
--- NOTE | 2023-11-22 14:12 | EX.ED.DYSGE1 ---
HPI History of Present Illness Chief Complaint: Abd Pain Informant: patient Narrative Narrative: 63-year-old male presenting to the emergency room with a chief complaint of left abdominal pain. Patient has had a complicated recent medical history. Beginning in August he began to have some abdominal pain. By October the pain was worse and more frequent. An outpatient CT revealed a colonic mass with perforation and fluid collection. He was eventually transferred to [facility] where he underwent colon resection which confirmed a cancer. Postoperatively was complicated by the development of small intra-abdominal abscesses which were treated with interventional radiology drains. Patient was transferred to [facility] for rehab. He has subsequently been discharged to home. He states he has had worsening pain at the site of the drains. He denies fever. He notes that he feels deconditioned and when he goes to exert himself gets short of breath. He reports good normal bowel movements. He is not currently on any antibiotics. He does have concerns for home health care versus what he is receiving versus what he should have. His sister is helping him get to appointments. He will be seeing Dr. Shelton locally for oncology. [facility] Medical History Adult failure to thrive Chronic cough COPD (chronic obstructive pulmonary disease) Former smoker History of broken finger History of fracture of clavicle History of pneumonia History of rib fracture History of toe fracture HTN (hypertension) Hx of bronchitis Hypertension Seasonal allergies Stage 4 very severe COPD by GOLD classification Home Medications blood pressure monitor #1 ea 08/27/22 [Rx Last Taken Unknown] budesonide 160 mcg-glycopyr 9 mcg-formot 4.8 mcg/actuation HFA inhaler (Breztri Aerosphere) 2 inh inhalation BID COPD #10.7 grams 12/30/22 [Rx Last Taken Unknown] Disability Placard #1 ea 06/25/23 [Rx Last Taken Unknown] metoprolol succinate 50 mg tablet,extended release 24 hr 50 mg PO DAILY HTN #30 tabs 07/03/23 [Rx Last Taken Unknown] amlodipine 2.5 mg tablet 2.5 mg PO DAILY HTN #30 tabs 10/07/23 [Rx Last Taken Unknown] acetaminophen 325 mg capsule 650 mg PO Q4H PRN fever or pain 11/09/23 [History Last Taken Unknown] cyclobenzaprine 5 mg tablet 5 mg PO TID 11/09/23 [History Last Taken Unknown] pantoprazole 40 mg tablet,delayed release 40 mg PO DAILY 11/09/23 [History Last Taken Unknown] tamsulosin 0.4 mg capsule 0.4 mg PO Q24H 11/09/23 [History Last Taken Unknown] docusate sodium 100 mg capsule (DOK) 100 mg PO DAILY PRN Constipation #20 CAPSULES 11/22/23 [Rx Last Taken Unknown] oxycodone-acetaminophen 5 mg-325 mg tablet 1 tab PO Q6H PRN PRN pain 5 days #20 TABLETS 11/22/23 [Rx Last Taken Unknown] Allergy/AdvReac Type Severity Reaction Status Date / Time Penicillins AdvReac NEEDS Verified 11/09/23 15:11 FOLLOW-UP Family History Uncle Diabetes Father Cancer Kidney disease Grandfather COPD (chronic obstructive pulmonary disease) Brother Hypertension Mother Heart disease Peripheral vascular disease Grandfather Heart disease Diabetes Uncle Alcoholism Surgical History History of tonsillectomy Social History household members: none current occupational status: disabled Smoking Status: Former smoker quit date: 12/01/21 pack-years: 29 Tobacco: How many years used: 29 Electronic Cigarette Use: not used how long ago did patient quit smokin 24 pack year history second hand exposure: No alcohol intake: current alcohol intake frequency: 0-2 drinks per day Alcohol type: beer substance use type: does not use what type of physical activity do you participate in: walking frequency: 3-4 times per week do you feel safe at home: Yes ROS ROS ED Constitutional Constitutional ED: Denies chills, fever(s) or weight loss Eyes Eyes: Denies change in vision or diplopia ENT ENT ED: Denies ear pain, rhinorrhea or sore throat Cardiovascular Cardiovascular: Reports palpitations; Denies chest pain, orthopnea or racing heartbeat Respiratory/Chest Respiratory/Chest: Reports dyspnea; Denies cough or orthopnea Gastrointestinal Gastrointestinal: Reports abdominal pain; Denies constipation, diarrhea, nausea or vomiting Genitourinary Genitourinary ED: Denies dysuria, hematuria or urinary frequency Musculoskeletal Musculoskeletal: Denies arthralgias or myalgias Integumentary Denies abscess or rash Neurologic Neurologic: Denies headache(s) or weakness Psychiatric Psychiatric: Denies anxiety, depression, suicidal ideation or suicidal thoughts Endocrine Endocrinology: Denies polydipsia, polyphagia or polyuria Allergic/Immunologic Allergic/Immunologic ED: Denies mouth swelling, tongue swelling or urticaria EXAM Physical Exam Const Vital Signs: 11/22/23 12:46 11/22/23 15:14 11/22/23 16:02 Temperature 96.7 F L Temperature Source Temporal Pulse Rate 136 H 89 Respiratory Rate 20 H 18 Blood Pressure 128/106 H 124/91 H 148/106 H Blood Pressure Mean 113 102 120 Pulse Ox 100 93 Oxygen Delivery Method Room Air Room Air Positive well nourished and well developed General Appearance ED: well developed HEENT Reports normocephalic, head/scalp atraumatic and moist mucous membranes Eyes PERRL and EOMs intact bilaterally Neck no lymphadenopathy, supple and no JVD Resp normal respiratory effort and clear to auscultation bilaterally Cardio regular rate, regular rhythm and no murmurs Rate: tachycardic GI normal to inspection, nondistended, normoactive bowel sounds and non-tender GI Narrative: There is a well-healed midline abdominal incision. There are 2 grenade drains in the left mid axillary line of the abdomen. There is some minimal surrounding erythema and exudate on the dressing. There is some serosanguineous fluid located in the grenade's themselves. These are less than 30 cc over 24 hours. Palpation: soft Back/Spine no CVA tenderness and normal ROM Extremity normal to inspection General Extremety ED: Negative for edema General Extremity: Negative for edema Neuro oriented x3 and CN's II-XII intact bilaterally Sensorium / Orientation: alert Motor Exam: strength 5/5 throughout Psych mental status grossly normal Mood & Affect: Negative for depressed or tearful Skin no rashes or lesions noted and no wounds MDM MDM MDM Narrative Medical decision making narrative: Patient received pain and nausea medication. EKG is a sinus rhythm with a ventricular rate of 114 bpm. Later in his ED course his he was resting after pain medication heart rate was down into the 80s. His blood pressures remained stable. White count is 6.2 with a hemoglobin 11.3. Glucose 171. Creatinine 1.08. CT of the abdomen pelvis with IV contrast was obtained. This demonstrated no new abscesses and almost complete resolution of the prior abscesses. Patient is without fever his white count is normal. After morphine he states his pain is significantly better. He describes the pain as burning and localized to the site where the drains are placed. I think this may be skin/neuropathic pain. I will write for some pain medication. I will speak with him regarding constipation and stool softener. Patient notes he will take the pain medication as needed. He has follow-up arranged. Return if worsening or concerns History & Record Review Additional record(s) reviewed:: Prior ED visit and Prior labs Lab Data Attestation: I reviewed the patient's lab results. Labs: Laboratory Results - last 24 hr 11/22/23 11/22/23 13:50 16:00 WBC 6.2 RBC 3.98 L Hgb 11.3 L Hct 36.3 L MCV 91.2 MCH 28.4 MCHC 31.1 L RDW Std Deviation 73.6 H RDW Coeff of [place] 22.9 H Plt Count 645 H MPV 9.0 Immature Gran % (Auto) 0.300 Neut % (Auto) 66.8 Lymph % (Auto) 22.9 [place] % (Auto) 7.3 Eos % (Auto) 2.1 Baso % (Auto) 0.6 Absolute Neuts (auto) 4.1 Absolute Lymphs (auto) 1.41 Nucleated RBC % 0 Anisocytosis 2+ Microcytosis 1+ Macrocytosis 1+ Sodium 139 Potassium 3.6 Chloride 107 Carbon Dioxide 26.0 Anion Gap 6 BUN 15 Creatinine 1.08 Estim Creat Clear Calc 62.93 Est GFR (MDRD) Af Amer 89 Est GFR (MDRD) Non-Af 73 BUN/Creatinine Ratio 13.9 Glucose 171 H Calcium 9.4 Urine Color Yellow Urine Clarity Clear Urine pH 6.5 Ur Specific [place] 1.010 Urine Protein 30 H Urine Glucose (UA) Normal Urine Ketones Negative Urine Occult Blood 10 H Urine Nitrite Negative Urine Bilirubin Negative Urine Urobilinogen 1 H Ur Leukocyte Esterase 25 H Radiography Diagnostic Testing: Clinical Impression(s) from Imaging Studies Abdomen/Pelvis CT 11/22/23 13:42 IMPRESSION: Interval placement of 2 percutaneous drains within the left flank with resolution of abscesses in the left paracolic gutter and between the left psoas muscle and iliac crest. No other acute abnormality. Electronically Signed: William Rivero MD at 15:53 EST , Discharge Plan Triage Chief Complaint: Abd Pain ED Provider: Luis A Matias Dx/Rx/DC Orders Clinical Impression: Abdominal pain, Abdominal abscess, Colon cancer Prescriptions: New oxycodone-acetaminophen [oxycodone-acetaminophen] 5-325 mg tablet 1 tab PO Q6H PRN PRN (Reason: pain) 5 Days Qty: 20 0RF docusate sodium [DOK] 100 mg capsule 100 mg PO DAILY PRN (Reason: Constipation) Qty: 20 0RF No Action (DME) blood pressure monitor Kit See Rx Instructions .Route Qty: 1 0RF Rx Instructions: As directed, check daily and as needed metoprolol succinate 50 mg tablet extended release 24 hr 50 mg PO DAILY Qty: 30 5RF acetaminophen 325 mg capsule 650 mg PO Q4H PRN (Reason: fever or pain) cyclobenzaprine 5 mg tablet 5 mg PO TID pantoprazole 40 mg tablet,delayed release (DR/EC) 40 mg PO DAILY tamsulosin 0.4 mg capsule 0.4 mg PO Q24H Breztri Aerosphere 160-9-4.8 mcg/actuation HFA aerosol inhaler 2 inh inhalation BID Qty: 10.7 11RF (DME) Disability Placard See Rx Instructions .ROUTE .MEDSUPPLY Qty: 1 0RF Rx Instructions: expires 06/25/2028 amlodipine 2.5 mg tablet 2.5 mg PO DAILY Qty: 30 1RF Primary Care Provider: Jina Cristina Referrals: Jina Cristina MD [Primary Care Provider] - Keep Allyson appointment Activity Restrictions/Additional Instructions: Please keep your follow-up appointment with your surgeons as scheduled. I have written for you to have pain medication at home. Please note that this medicine can be constipating. If you find yourself beginning to feel constipated, I have also written for stool softener. Please continue to monitor yourself and return if any concerns. Disposition Disposition: Home, Self Care
[2023-11-22 14:18] LABS: Differential Indicated SCAN CRITERIA MET
[2023-11-22 14:27] LABS: Anisocytosis 2+; Macrocytosis 1+; Microcytosis 1+
[2023-11-22 15:14] VITALS: BP 124/91; PULSE 89; RESP 18; O2SAT 93
[2023-11-22 16:02] VITALS: BP 148/106
[2023-11-22 16:07] LABS: Bacteria 0 SEEN /hpf (None Seen); Mucous, Urine 0 SEEN /hpf (<or=2+); Red Blood Cells-Urine 0 SEEN /hpf (0-5)
[2023-11-22 16:14] LABS: Color, Urine Yellow (Yellow); Glucose, Dipstick Normal (Normal); Ketone-Dipstick Negative (Negative); Leukocyte Esterase-Dipstick 25 /ul (Negative); Nitrite-Dipstick Negative (Negative); Occult Blood-Urine 10 /ul (Negative); Protein-Dipstick 30 mg/dl (Negative); Urine Bilirubin Dipstick Negative (Negative); Urine Clarity Clear (Clear); Urine Urobilinogen 1 mg/dl (Normal); Urine pH 6.5 (5.0 - 8.0)
[2023-11-22 16:17] VITALS: BP 140/109; PULSE 89; RESP 16; O2SAT 99
[2023-11-22 16:30] LABS: Squamous Epithelial Cells - UA 0-5 SEEN /hpf (0-5); White Blood Cells 0-5 SEEN /hpf (0-5)
--- NOTE | 2023-11-22 16:35 | NURSING ---
Patient was discahrged with sister in law. This RN provided supplies for his 2 drains.
== END 2023-11-22 16:36 | disposition home or self-care (01) ==
PROVIDERS: Emergency Provider Emergency Medicine; PCP Internal Medicine; Visit Provider Emergency Medicine
DX: R10.9 Unspecified abdominal pain (principal); J44.9 Chronic obstructive pulmonary disease, unspecified; C18.9 Malignant neoplasm of colon, unspecified; K65.1 Peritoneal abscess; R11.0 Nausea; I10 Essential (primary) hypertension; Z87.891 Personal history of nicotine dependence; Z79.899 Other long term (current) drug therapy
CPT/HCPCS: 74177; 80048; 81001; 85025; 93005; 96374; 96375; 99284; Q9967; A4216; J2405

== ENCOUNTER → 2023-12-18 | Outpatient (CLI) | payer MEDICAID, SELFPAY ==
--- OUTSIDE RECORDS SUMMARY | 2023-12-18 09:18 | XMS RPT_ITS | CCD ---
Author Name Unknown Address [address] [facility] [address] [place] [id number] Organization [facility] Care Team Providers Care Power Machine Operator Name Role Phone Unavailable Primary Care Provider Unavailabl e PHYSICIAN, NONE Attending Unavailable PHYSICIAN, NONE Primary Care Unavailable Johny Cristina MD Primary Care Provider JOHNY CRISTINA Primary Care Unavailable JASE MORA Attending Unavailable EVY GUZMAN Referring Unavailable YUDI AVELAR Attending Unavailable CHUCKIE BUSCH, EMILY RHOADES Attending Unava brenda NOGUERA MD, EMILY RHOADES Admitting Unava JOHNY Drew Primary Care Unavailable YUDI AVELAR Attending Unavailable DAVID LOVE Admitting Unavailable JOHNY CRISTINA Primary Care Unavailable YUDI AVELAR Admitting Unavailable EVY GUZMAN Attending Unavailable INGRID BUSTILLOS Referring Unavailable LENORA DIAMOND Consulting UnavailLIMA Sharp Attending Unavailable PREETI VELARDE Referring Unavailable Allergies Allergy Classification Reported Allergen(s) Allergy Type Date of Onset Reaction(s) Facility (3 sources) Penicillins; Translations: [PENICILLINS] Propensity to adverse reactions to drug 05-19-2017 Unknown [facility] Medications Current Medications Medication Drug Class(es) Dates Sig (Normalized) Sig (Original) microencapsulated potassium chloride 20 meq extended release oral tablet (1 source) Start: 10-30-2023 End: 11-03-2023 take 2 tablets by mouth once daily potassium chloride ER (KLOR-CON) 20 mEq tablet Take 2 tablets by mouth once daily for 4 days. 8 tablet 0 10/30/2023 11/03/2023 Active Completed/Discontinued Medications Medication Drug Class(es) Dates Sig (Normalized) Sig (Original) amLODIPine 2.5 mg oral tablet (4 sources) Dihydropyridine Calcium Channel Janelle Start: 10-07-2023 take 1 tablet by mouth once amLODIPine (NORVASC) 2.5 mg tablet Take 1 tablet by mouth every afternoon. 0 10/07/2023 Active Problems Problem Classification Problem Date Documented Da te Episodic/Chronic Cancer of colon (1 source) Malignant tumor of sigmoid colon; Translations: [Malignant neoplasm of sigmoid colon] 11-05-2023 Chronic Cardiac dysrhythmias (1 source) Unspecified atrial fibrillation; Translations: [Atrial fibrillation, unspecified type (HCC)] Onset: 11-10-2023 Chronic Chronic obstructive pulmonary disease and bronchiectasis (4 sources) Pulmonary emphysema; Translations: [Emphysema, unspecified] Onset: 10-27-2023 10-29-2023 Chronic Diseases of mouth; excluding dental (4 sources) Abscess of tongue; Translations: [Glossitis] Onset: 10-18-2023 10-18-2023 Episodic Fluid and electrolyte disorders (4 sources) Hypokalemia; Translations: [Hypokalemia] Onset: 10-27-2023 10-29-2023 Episodic Intestinal obstruction without hernia (1 source) Unspecified intestinal obstruction, unspecified as to partial versus complete obstruction; Translations: [Large bowel obstruction (HCC)] Onset: 10-17-2023 Episodic Nutritional deficiencies (4 sources) Undernutrition; Translations: [Mild protein-calorie malnutrition] Onset: 10-27-2023 10-29-2023 Chronic Other gastrointestinal disorders (1 source) Other specified diseases of intestine; Translations: [Colonic mass] Onset: 10-29-2023 Episodic Peritonitis and intestinal abscess (1 source) Peritoneal abscess; Translations: [Intra-abdominal abscess (HCC)] Onset: 11-10-2023 Episodic Residual codes; unclassified (4 sources) History of partial resection of colon; Translations: [Acquired absence of other specified parts of digestive tract] Onset: 10-27-2023 10-29-2023 Episodic Residual codes; unclassified (1 source) Postoperative state; Translations: [Other specified postprocedural states] 11-05-2023 Episodic Residual codes; unclassified (1 source) Acquired absence of other specified parts of digestive tract; Translations: [S/P left hemicolectomy] Onset: 10-29-2023 Episodic Skin and subcutaneous tissue infections (3 sources) Abscess; Translations: [Cutaneous abscess, unspecified] Onset: 11-10-2023 11-10-2023 Episodic Unclassified (1 source) Post Op Onset: 11-05-2023 Results Test Name Value Interpretation Reference Range Facil ity Vital Signs Date Time Vital Sign Value Performing Clinician Faci lity 11-05-2023 13:33-0500 Body height 172.7 cm Yudi Avelar MD Work Phone: [facility] 11-05-2023 13:33-0500 Body weight 69.4 kg Yudi Avelar MD Work Phone: [facility] 11-05-2023 13:33-0500 Diastolic blood pressure 68 mm[Hg] Yudi Avelar MD Work Phone: [facility] 11-05-2023 13:33-0500 Heart rate 72 /min Yudi Avelar MD Work Phone: [facility] 11-05-2023 13:33-0500 Respiratory rate 18 /min Yudi Avelar MD Work Phone: [facility] 11-05-2023 13:33-0500 Systolic blood pressure 118 mm[Hg] Yudi Avelar MD Work Phone: [facility] Encounters Encounter Date Encounter Type Care Provider Facility Start: 12-09-2023 End: 12-09-2023 ambulatory EMILY CASAREZ MD Facility:[facility] Start: 12-05-2023 End: 12-05-2023 ambulatory JOHNY CRISTINA Facility:[facility] Start: 11-20-2023 Telephone encounter Rodríguez Bishop MD Work Phone: [facility] Procedures Date Procedure Procedure Detail Performing Clinician Start: 11-10-2023 Antibody screen AYLIN AVELAR Plan of Treatment Date Care Activity Detail Author Start: 11-13-2026 Diabetes Screening Diabetes Screenin g [facility] Start: 10-29-2026 Diabetes Screening Diabetes Screenin g [facility] Start: 10-20-2024 Colonoscopy Colonoscopy [facility] Start: 10-20-2024 Colorectal Cancer Screening Colorectal Cancer Screening [facility] Start: 10-20-2024 Screening for malign ant neoplasm of colon [facility] Start: 08-01-2023 Influenza vaccination Influenza Vacc ine (#1) [facility] Start: 12-01-2022 Depression Assessment Depression Ass essment [facility] Start: 2020 RSV Vaccine (1 - 1-d ose 60+ series) RSV Vaccine (1 - 1-dose 60+ series) [facility] Start: 2015 Prostate Cancer Scre ening Discussion Prostate Cancer Screening Discussion [facility] Start: 2015 Prostate specific an tigen measurement Prostate Cancer Screening Discussion [facility] Start: 2010 Shingrix Vaccine (1 of 2) Shingrix V accine (1 of 2) [facility] Start: 2005 Cologuard (FIT-DNA) Cologuard (FIT-D NA) [facility] Start: [address] Colonography [facility] Start: 2005 Fecal Occult Blood Fecal Occult Bloo d [facility] Start: 2005 Screening for malign ant neoplasm of colon [facility] Start: 2005 Sigmoidoscopy Sigmoidoscopy [facility] Start: 1995 Lipid 1996 panel - S alisha or Plasma Lipid Screening [facility] Start: 1995 Lipid panel Lipid Screening [facility] Start: 1990 Zoledronic acid therapy Alpha- 1 Antitrypsin Deficiency Screening [facility] Start: 1979 Urine microalbumin profile DTa P,Tdap,Td Vaccine (1 - Tdap) [facility] Start: 1978 Annual PCP Team Testing Coordinator jerman Disease Visit Annual PCP Team Chronic Disease Visit [facility] Start: 1978 Hepatitis C Screening Hepatitis C [facility] Start: 1978 Hepatitis C screening Hepatitis C [facility] Start: 1978 HIV Screening HIV Screening [facility] Start: 1978 HIV screening HIV Screening [facility] Start: 1978 Spirometry Spirometry [facility] Start: 1966 Pneumococcal vaccination [facility] Start: 02-13-1961 Covid-19 Vaccine (#1) Covid-19 Vacci ne (#1) [facility] Payers Date Payer Category Payer Self-pay 2023 Medicaid [facility] MEDICAID [facility] PLAN MEDICAID OF [place] [id number] 2023-Present [phone] [address] [place] [address] Medicaid [id number] 2023 Medicaid [id number] 1960 Unknown [id number] Social History Date Type Detail Facility Start: 05-19-2017 [facility] Work Phone: Start: 10-21-2023 End: 11-05-2023 History of Social function [facility] Work Phone: Start: 10-21-2023 End: 11-05-2023 Tobacco use panel [facility] Work Phone: How hard is it for y ou to pay for the very basics like food, housing, medical care, and heating Not hard at all [facility] Work Phone: (I/We) worried lis er (my/our) food would run out before (I/we) got money to buy more. Never true [facility] Work Phone: In the past 12 month s, was there a time when you were not able to pay the mortgage or rent on time? No [facility] Work Phone: Start: 1960 Sex Assigned At Not on file C [facility] Start: 11-05-2023 [facility] History of tobacco use Current smoker [facility] History of tobacco use Cigarette Smoker C [facility] Start: 11-05-2023 Alcohol intake Ex-drinker (finding) [facility] Start: 11-05-2023 Alcohol Comment beer [facility] Clinical Notes 10-17-2023 to 12-05-2023 Telephone Encounter - Amarilys Tong RN - 11/20/2023 11:25 AM ESTTelephone Encounter - Ameena Frazier LPN - 11/20/2023 10:18 AM Yudi Marc MD - 11/05/2023 2:27 PM EST Note Date & Type Note Facility 12-05-2023 Note HNO ID: [id number] Author: JASE MORA MD Service: ? Author Type: Physician Type: Progress Notes Filed: 12/05/2023 13:22 Note Text: HISTORY OF PRESENT ILLNESS: Christopher Payne is a 63 year old male abdominal pain on and off mid year 2022, changes in stool. Went to [facility] ER October 17, 2023. Colonoscopy found sigmoid colon mass. pT3N0 mod diff, no perineural or lymphatic invasion. CLINICAL IMPRESSION: Stage II colon cancer, no high risk features, as such see no benefit to adjuvant chemotherapy RECOMMENDATION/PLAN: 1. Plan enter into surveillance 2. Hepatic panel and CEA level every [address] scans every October x 5 years Written and verbal health teaching given to patient, patient verbalizes understanding and agrees with treatment plan. PAST MEDICAL HISTORY Diagnosis Date COPD (chronic obstructive pulmonary disease) (HCC) 2021 PAST SURGICAL HISTORY Procedure Laterality Date PAST SURGICAL HISTORY OF 10/21/2023 sigmoid colectomy with anastomosis FAMILY HISTORY Problem Relation Age of Onset Cancer Mother Colon Cancer Father No Known Problems Sister No Known Problems Brother Obstructive Sleep Apnea Brother Diabetes Paternal Grandfather Heart Paternal Grandfather Social History Tobacco Use Smoking status: Former Types: Cigarettes Smokeless tobacco: Never Vaping Use Vaping Use: Never used Substance Use Topics Alcohol use: Yes Comment: beer Drug use: Never ALLERGIES: ALLERGIES No Known Allergies CURRENT OUTPATIENT MEDICATIONS: amLODIPine (NORVASC) 2.5 mg tablet Take 1 tablet by mouth every afternoon. BREZTRI AEROSPHERE 160-9-4.8 mcg/actuation HFA aerosol inhaler INHALE 2 (TWO) PUFFS twice a day metoprolol succinate ER (TOPROL XL) 50 mg 24 hr tablet Take 1 tablet by mouth every afternoon. calcium carbonate (TUMS) 500 mg chew Take 2 tablets by mouth three times a day as needed. (Patient not taking: Reported on 12/05/2023) cyclobenzaprine (FLEXERIL) 5 mg tablet Take 1 tablet by mouth three times a day. (Patient not taking: Reported on 12/05/2023) pantoprazole DR (PROTONIX) 40 mg tablet Take 1 tablet by mouth daily at 6 am. (Patient not taking: Reported on 12/05/2023) tamsulosin (FLOMAX) 0.4 mg Take 1 capsule by mouth once daily. REVIEW OF SYSTEMS: GENERAL: No fever, night sweats, weight loss or malaise. All other reviewed and negative other than HPI. PHYSICAL EXAMINATION: VITAL SIGNS: BP 158/106 Pulse 94 Temp 99.2 Ht 5' 4.961 (1.65m) Wt 143 lb 8 oz (65.1kg) SpO2 96% BMI 23.91 kg/(m2). GENERAL APPEARANCE: Well appearing, in no acute distress, alert and oriented x3, well-hydrated, well nourished. I spent a total of 60 minutes on the date of the service which included preparing to see the patient, [id number] patient care, completing clinical documentation, obtaining and/or reviewing separately obtained history, counseling and educating the patient/family/caregiver, ordering medications, tests, or procedures, independently interpreting results (not separately reported), and communicating results to the patient/family/caregiver. Electronically Signed: Jase Mora MD December 05, 2023 10:42 AM [facility] 11-20-2023 Miscellaneous Notes Call received from Pt - name & verified. Pt calls and states that he had a percutaneous drain inserted by IR on 11/10/2023. He is s/p sigmoid colectomy on 10/21/2023. Pt states I feel the best I have in about 6 weeks, except the drain placement is giving me some pain. Pt reports the pain is at the insertion site of the drain, no internal pain expressed. Afebrile. Having normal Bms and flatulence. He confirms he has been flushing the drain, as instructed, with no problems, but starting yesterday, he has been experiencing increased pain at the site when it's being flushed. He has an appt on 12/02/[address] Cordell Blake for a contrast-injection to assess previous abscessed area. Pt states he first called [facility], where the surgery was performed, and was told to call a [facility] location closer to his home for follow-up. Pt now requesting advice and/or appt with a general surgeon here at the [place] location. Please advise for further instruction. Pt's cell # . Amarilys Tong RN November 20, 2023 11:32 AM documented in this encounter [facility] 11-20-2023 Miscellaneous Notes Pt notified abscessogram is on 12/02/22 at 10 am , follow up appt with Dr Bishop on 12/10/23, all directions and instructions given. Verbalized understanding. Mercedes BENJAMIN documented in this encounter [facility] 11-12-2023 Note HNO ID: [id number] Author: Bernabe Goetz MD Service: General Surgery Author Type: Resident Type: Progress Notes Filed: 11/12/2023 8:23 AM Note Text: Based on your medical judgment of the clinical indicators outlined below, please clarify the condition: (Please type X next to your response and sign) Clinical Indicators: HGB 6.5 12/11 PN He was also noted to be anemic to 6.5 12/11 PN Repeat CBC to be done after the RBC transfusion is Complete Risk Factors: HANDP s/p L hemicolectomy with primary anastomosis (10/21) Treatments: Blood transfusion Please clarify the acuity Acute x Acute on Chronic Chronic only Other, please specify Please clarify type of anemia Blood Loss x Other, please specify chronic disease [facility] 11-12-2023 Note HNO ID: [id number] Author: Sofia Lawrence APRN.VARITYPE OPERATOR Service: General Surgery Author Type: Nurse Specialist Type: Progress Notes Filed: 11/12/2023 7:56 AM Note Text: Emergency General Surgery Progress Note SERVICE DATE: November 12, 2023 SERVICE TIME: 624 Emergency General Surgery Service Pager: For questions or concerns Mon-Fri 6a-5p please page [phone]. After 5pm and on Weekends and Holidays, please page [phone] if in ICU or [phone] if on RNF. SUBJECTIVE: HPI: 63 year old male with PMH of COPD, HTN, recent admission for abdominal pain found to have invasive colorectal adenocarcinoma s/p L hemicolectomy with primary anastomosis (10/21, negative margins, negative nodes) presents from OSH with fever and lightheadedness. He had a CT abd/pelvis which showed a 9.2 x 10.5 x 5.1 cm LLQ abscess. He had a fever to 102 and a leukocytosis to 11 with tachycardia. He has been at rehab since his discharge. He was started on Cardizem in ED for AF/RVR. A drain was placed by IR, transfusion given for HGB of 6.5 No acute events overnight. Reports feeling well, mild discomfort. Denies SOB Tolerating diet DIET REGULAR Nausea No Emesis No Flatus Yes Bowel movement Yes Pain Controlled Yes Ambulating Yes OBJECTIVE: Vitals: Temp (24hrs), Av.3 ?C (97.4 ?F), Min:36.2 ?C (97.2 ?F), Max:36.5 ?C (97.7 ?F) BP 105/73 Pulse 89 Temp 36.5 ?C (97.7 ?F) (Oral) Resp 16 Ht 172.7 cm (5' 8 ) Wt 68.6 kg (151 lb 3.8 oz) SpO2 96% BMI 23.00 kg/m? O2 Therapy: Room Air IANDO: Date 11/11/23699 - 11/12/23 0659 11/12/23 07 - 11/13/23 0659 Shift 9883-7537 8059-6936 1512-5156 24 Hour Total 9421-2970 7670-2927 3208-9785 24 Hour Total INTAKE PO 120 120 PO 120 120 Irrigants 20 20 Irrigant/Flush Amount In mL (I/O) (Drain/Tube 11/10/23 1215 [facility] Left Posterior;Lateral Drain #1) 10 10 Irrigant/Flush Amount In mL (I/O) (Drain/Tube 11/10/23 1224 [facility] Left Posterior;Lateral;Lower Quadrant Drain #2) 10 10 Shift Total 120 20 140 OUTPUT Urine Urine Not Saved. 1 x 1 x Tubes 30 60 90 Drain/Tube Output (Drain/Tube 11/10/23 1215 [facility] Left Posterior;Lateral Drain #1) 20 20 Drain/Tube Output (Drain/Tube 11/10/23 1224 [facility] Left Posterior;Lateral;Lower Quadrant Drain #2) 30 40 70 # of BMs Number of BMs 1 x 1 x Shift Total 30 60 90 Weight (kg) 68.6 68.6 68.6 68.6 68.6 68.6 68.6 68.6 MEDICATIONS Current Facility-Administered Medications Medication Dose Route Frequency potassium chloride ER 40 mEq tab(s) (KLOR-CON) 40 mEq ORAL DAILY enoxaparin 40 mg injection (LOVENOX) 40 mg SUBCUTANEOUS q 24 HR budesonide 0.25 mg/2 mL 0.25 mg (PULMICORT) 0.25 mg INHALATION BID And ipratropium-albuterol 3 mL nebulizer solution (DUONEB) 3 mL INHALATION q 4 H PRN cyclobenzaprine 5 mg tab(s) (FLEXERIL) 5 mg ORAL TID tamsulosin 0.4 mg cap(s) (FLOMAX) 0.4 mg ORAL DAILY metoprolol tartrate (short acting) 25 mg tab(s) (LOPRESSOR) 25 mg ORAL q [address] 40 mg tab(s) (PROTONIX) 40 mg ORAL DAILY (6 AM) ondansetron 4 mg tab(s) (ZOFRAN) 4 mg ORAL q 6 H PRN Or ondansetron (PF) 4 mg injection (ZOFRAN) 4 mg INTRAVENOUS q 6 H PRN acetaminophen 975 mg tab(s) (TYLENOL) 975 mg ORAL QID morphine 2 mg injection 2 mg INTRAVENOUS q 4 H PRN NaCl 0.9% iv flush bag 20 mL INTRAVENOUS PRN oxyCODONE IR 5 mg tab(s) (ROXICODONE) 5 mg ORAL q 6 H PRN piperacillin-tazobactam iv piggyback 3.375 g in dextrose (iso-osmotic) 50 mL (ZOSYN) 3.375 g INTRAVENOUS q 6 H sodium chloride 0.9 % (flush) 5-10 mL (BD POSIFLUSH) 5-10 mL OTHER q 12 H sodium chloride 0.9 % (flush) 5-10 mL (BD POSIFLUSH) 5-10 mL OTHER q 12 H Labs: Recent Labs 11/12/23 0339 11/11/23 0545 11/10/23 1752 11/10/23 1632 11/10/23 1554 11/10/23 1500 11/10/23 0756 NA 138 138 -- -- -- < > -- K 3.1* 3.5* -- -- -- < > -- CHLOR 109* 107* -- -- -- < > -- CO2 23 23 -- -- -- < > -- BUN 14 10 -- -- -- < > -- CREAT 0.84 0.68* -- -- -- < > -- GLUC 93 103* -- -- -- < > -- ANION 6* 8* -- -- -- < > -- CA 8.1* 8.1* -- -- -- < > -- WBC 6.57 9.60 < > -- -- -- 9.17 HB 7.9* 7.4* < > -- -- -- 6.5* HCT 24.6* 22.9* < > -- -- -- 20.5* PLT 400 335 < > -- -- -- 341 LACT -- -- -- 1.4 1.9 -- -- INR -- -- -- -- -- -- 1.2 < > = values in this interval not displayed. Physical Exam: GENERAL: No distress, Alert NEURO: AANDOx3, CN II-XII grossly intact HEENT: normocephalic, atraumatic LUNGS: Unlabored breathing, equal chest rise bilaterally CARDIAC: Regular rate, warm and well perfused distal extremities ABDOMEN: Soft, TTP @ drain sites, mildly distended. Midline incision well healed EXTREMITIES: LEDEZMA, No deformities, No edema SKIN: Skin color, texture, turgor normal, No rashes or lesions ASSESSMENT AND PLAN: Assessment Active Hospital Problems Diagnosis Date Noted Abscess 11/10/2023 Assessment: 63 year old male with a PMH COPD, HTN, rec (more content not included)... [facility] 12-12-2023 Note HNO ID: [id number] Author: Sofia Lawrence, RESEARCH CHEMICAL ENGINEER.VARITYPE OPERATOR Service: General Surgery Author Type: Nurse Specialist Type: Progress Notes Filed: 11/11/2023 1:46 PM Note Text: Emergency General Surgery Progress Note SERVICE DATE: November 11, 2023 SERVICE TIME: 709 Emergency General Surgery Service Pager: For questions or concerns Mon-Fri 6a-5p please page [phone]. After 5pm and on Weekends and Holidays, please page [phone] if in ICU or [phone] if on RNF. SUBJECTIVE: HPI: 63 year old male with PMH of COPD, HTN, recent admission for abdominal pain found to have invasive colorectal adenocarcinoma s/p L hemicolectomy with primary anastomosis (10/21, negative margins, negative nodes) presents from OSH with fever and lightheadedness. He had a CT abd/pelvis which showed a 9.2 x 10.5 x 5.1 cm LLQ abscess. He had a fever to 102 and a leukocytosis to 11 with tachycardia. He has been at rehab since his discharge. He was started on Cardizem in ED for AF/RVR. A drain was placed by IR, transfusion given for HGB of 6.5 Reports feeling much better this morning. Denies SOB on 2L NC. Reports some soreness over old midline incision Tolerating diet DIET REGULAR Nausea No Emesis No Flatus Yes Bowel movement Yes Pain Controlled Yes OBJECTIVE: Vitals: Temp (24hrs), Av.7 ?C (98 ?F), Min:36.3 ?C (97.3 ?F), Max:36.9 ?C (98.4 ?F) BP 98/68 Pulse 80 Temp 36.4 ?C (97.6 ?F) (Temporal) Resp 18 Ht 172.7 cm (5' 8 ) Wt 68.6 kg (151 lb 3.8 oz) SpO2 98% BMI 23.00 kg/m? O2 Therapy: Nasal Cannula IANDO: Date 11/10/23699 - 11/11/2365811/11/23699 - 11/12/23 0659 Shift 6122-5520 8755-8441 5795-3749 24 Hour Total 2177-2064 7996-7926 3707-9547 24 Hour Total INTAKE Blood Products 300 300 Infusion Complete Volume (mL) (RBC Transfusion Instruction) 300 300 Irrigants 20 20 Irrigant/Flush Amount In mL (I/O) (Drain/Tube 11/10/23 1215 [facility] Left Posterior;Lateral Drain #1) 10 10 Irrigant/Flush Amount In mL (I/O) (Drain/Tube 11/10/23 1224 [facility] Left Posterior;Lateral;Lower Quadrant Drain #2) 10 10 Shift Total 300 20 320 OUTPUT Tubes 25 25 Drain/Tube Output (Drain/Tube 11/10/23 1215 [facility] Left Posterior;Lateral Drain #1) 15 15 Drain/Tube Output (Drain/Tube 11/10/23 1224 [facility] Left Posterior;Lateral;Lower Quadrant Drain #2) 10 10 Shift Total 25 25 Weight (kg) 69.4 68.6 68.6 68.6 68.6 68.6 68.6 68.6 MEDICATIONS Current Facility-Administered Medications Medication Dose Route Frequency vancomycin iv piggyback 1 g in D5W 200 mL (VANCOCIN) 0.015 g/kg/dose INTRAVENOUS q 12 HR vancomycin dosing and monitoring per pharmacy OTHER As Directed cyclobenzaprine 5 mg tab(s) (FLEXERIL) 5 mg ORAL TID tamsulosin 0.4 mg cap(s) (FLOMAX) 0.4 mg ORAL DAILY metoprolol tartrate (short acting) 25 mg tab(s) (LOPRESSOR) 25 mg ORAL q [address] 40 mg tab(s) (PROTONIX) 40 mg ORAL DAILY (6 AM) ondansetron 4 mg tab(s) (ZOFRAN) 4 mg ORAL q 6 H PRN Or ondansetron (PF) 4 mg injection (ZOFRAN) 4 mg INTRAVENOUS q 6 H PRN acetaminophen 975 mg tab(s) (TYLENOL) 975 mg ORAL QID morphine 2 mg injection 2 mg INTRAVENOUS q 4 H PRN NaCl 0.9% iv flush bag 20 mL INTRAVENOUS PRN oxyCODONE IR 5 mg tab(s) (ROXICODONE) 5 mg ORAL q 6 H PRN piperacillin-tazobactam iv piggyback 3.375 g in dextrose (iso-osmotic) 50 mL (ZOSYN) 3.375 g INTRAVENOUS q 6 H budesonide 0.25 mg/2 mL 0.25 mg (PULMICORT) 0.25 mg INHALATION BID And ipratropium-albuterol 3 mL nebulizer solution (DUONEB) 3 mL INHALATION QID sodium chloride 0.9 % (flush) 5-10 mL (BD POSIFLUSH) 5-10 mL OTHER q 12 H sodium chloride 0.9 % (flush) 5-10 mL (BD POSIFLUSH) 5-10 mL OTHER q 12 H Labs: Recent Labs 11/11/23 0545 11/10/23 1752 11/10/23 1632 11/10/23 1554 11/10/23 1500 11/10/23 0756 NA 138 -- -- -- 138 -- K 3.5* -- -- -- 3.4* -- CHLOR 107* -- -- -- 105 -- CO2 23 -- -- -- 20* -- BUN 10 -- -- -- 10 -- CREAT 0.68* -- -- -- 0.66* -- GLUC 103* -- -- -- 93 -- ANION 8* -- -- -- 13 -- CA 8.1* -- -- -- 8.0* -- WBC 9.60 11.51* -- -- -- 9.17 HB 7.4* 7.8* -- -- -- 6.5* HCT 22.9* 23.9* -- -- -- 20.5* PLT 335 353 -- -- -- 341 LACT -- -- 1.4 1.9 -- -- INR -- -- -- -- -- 1.2 Physical Exam: GENERAL: No distress, Alert NEURO: AANDOx3, CN II-XII grossly intact HEENT: normocephalic, atraumatic LUNGS: Unlabored breathing on 2L NC, equal chest rise bilaterally CARDIAC: Regular rate, warm and well perfused distal extremities ABDOMEN: Soft, non-tender, moderately distended. Midline incision well healed. IR drains x2 with SS output EXTREMITIES: LEDEZMA, No deformities, No edema SKIN: Skin color, texture, turgor normal, No rashes or lesions ASSESSMENT AND PLAN: Assessment Active Hospital Problems Diagnosis Date Noted Abscess 11/10/2023 Assessment: 63 year old male with a PMH COPD, HTN, recent admission for abdominal pain found to have i (more content not included)... [facility] 11-10-2023 Note HNO ID: [id number] Author: Bernabe Goetz MD Service: General Surgery Author Type: Resident Type: Plan of Care Filed: 11/10/2023 3:24 PM Note Text: Emergency plan of Care: - Patient evaluated at the bedside for continued A. Fib with RVR. Denies any chest pain and reports minimal SOB. HR an hour ago in the 150s and treated with 5mg of lopressor. Drains noted with SS output. Given recent infection and recent Drain placement, likely patient has a SIRs response that is making his new onset A. Fib worse. He was also noted to be anemic to 6.5, which could be contributing. Lactate this am was at 1.4. Currently patient is on antibiotics (zosyn). Will transfuse 1 unit of RBC and given 500 cc fluid bolus, which will hopefully help with his A. Fib. Lactate is pending. Repeat CBC to be done after the RBC transfusion is complete. Continue Pulmonary hygiene with home Pulmicort. Bernabe Goetz MD General Surgery, PGY3 11/10/2023 3:24 PM Emergency General Surgery Service Pager: For questions or concerns Mon-Fri 6a-5p please page [phone]. After 5pm and on Weekends and Holidays, please page [phone] if in ICU or [phone] if on RNF. [facility] 11-05-2023 Note HNO ID: [id number] Author: Yudi Avelar MD Service: ? Author Type: Physician Type: Progress Notes Filed: 11/05/2023 4:46 PM Note Text: Patient referred by: No referring provider defined for this encounter. Patient presents with: Post Op: Colectomy, staple removal HPI: Christopher is a 63 year old male s/p open left hemicolectomy with colorectal anastomosis on 10/21 for obstructing sigmoid cancer. He has since been at the custodial and feels that he is improving with his strength. He is having bowel function and tolerating a diet. He is nervous about his staple removal today. History reviewed. No pertinent past medical history. PAST SURGICAL HISTORY Procedure Laterality Date PAST SURGICAL HISTORY OF 10/21/2023 sigmoid colectomy with anastomosis History reviewed. No pertinent family history. Social History Tobacco Use Smoking status: Former Types: Cigarettes Substance Use Topics Alcohol use: Not Currently Comment: beer Drug use: Never Current Outpatient Medications Medication Sig calcium carbonate (TUMS) 500 mg chew Take 2 tablets by mouth three times a day as needed. cyclobenzaprine (FLEXERIL) 5 mg tablet Take 1 tablet by mouth three times a day. pantoprazole DR (PROTONIX) 40 mg tablet Take 1 tablet by mouth daily at 6 am. tamsulosin (FLOMAX) 0.4 mg Take 1 capsule by mouth once daily. amLODIPine (NORVASC) 2.5 mg tablet Take 1 tablet by mouth every afternoon. BREZTRI AEROSPHERE 160-9-4.8 mcg/actuation HFA aerosol inhaler INHALE 2 (TWO) PUFFS twice a day metoprolol succinate ER (TOPROL XL) 50 mg 24 hr tablet Take 1 tablet by mouth every afternoon. No current facility-administered medications for this visit. ALLERGIES Allergen Reactions Penicillins Unknown Pt himself has never had a reaction to penicillin. He listed it as an allergy because he has some family members that have gotten rashes from it in the past. He states that he has had amoxicillin in the past without issue REVIEW OF SYSTEMS: GENERAL: No weight loss, malaise or fevers GI: Negative for abdominal pain, nausea , vomiting, diarrhea, constipation, and signs of jaundice Positive for none PHYSICAL EXAM: BP 118/68 Pulse 72 Resp 18 Ht 5' 8 (1.73m) Wt 153 lb (69.4kg) BMI 23.27 kg/(m2). GENERAL APPEARANCE: Well appearing, alert, in no acute distress, well-hydrated, well nourished.. ABDOMEN: soft, non-distended, non-tender, midline incision with katerin c/d/I and incision is healing NEURO: Alert, oriented x3, no asterixis, speech clear and articulate, and LEDEZMA DATA: Diagnostic tests reviewed for today's visit: Most recent labs Pathology report reviewed A total of 10 minutes was spent in direct patient contact.Greater than 50% of the direct patient contact time was spent in counseling or coordination of care. ASSESSMENT / PLAN Colon adenocarcinoma -Doing well today. Tolerating diet and having bowel function. Reviewed pathology report with patient and next steps. He already has an appointment with an oncologist in [place] and should keep that to discuss any possible adjuvant therapy. [place] removed in office. Continue lifting restrictions for the next 4 weeks and then can gradually return to activity as tolerated. Follow up PRN from a surgery standpoint. Ishmael Tubbs DO Patient was seen and evaluated by myself on this day November 05, 2023. I agree with the presented documentation unless specifically noted. SIGNATURE: Yudi Avelar MD PATIENT NAME: Christopher Payne DATE: November 05, 2023 TIME: 4:45 PM Pager: [phone] [facility] 11-05-2023 History of Presen t illness Narrative Patient referred by: No referring provider defined for this encounter. Patient presents with: Post Op: Colectomy, staple removal HPI: Christopher is a 63 year old male s/p open left hemicolectomy with colorectal anastomosis on 10/21 for obstructing sigmoid cancer. He has since been at the custodial and feels that he is improving with his strength. He is having bowel function and tolerating a diet. He is nervous about his staple removal today. History reviewed. No pertinent past medical history. PAST SURGICAL HISTORY Procedure Laterality Date PAST SURGICAL HISTORY OF 10/21/2023 sigmoid colectomy with anastomosis History reviewed. No pertinent family history. Social History Tobacco Use Smoking status: Former Types: Cigarettes Substance Use Topics Alcohol use: Not Currently Comment: beer Drug use: Never Current Outpatient Medications Medication Sig calcium carbonate (TUMS) 500 mg chew Take 2 tablets by mouth three times a day as needed. cyclobenzaprine (FLEXERIL) 5 mg tablet Take 1 tablet by mouth three times a day. pantoprazole DR (PROTONIX) 40 mg tablet Take 1 tablet by mouth daily at 6 am. tamsulosin (FLOMAX) 0.4 mg Take 1 capsule by mouth once daily. amLODIPine (NORVASC) 2.5 mg tablet Take 1 tablet by mouth every afternoon. BREZTRI AEROSPHERE 160-9-4.8 mcg/actuation HFA aerosol inhaler INHALE 2 (TWO) PUFFS twice a day metoprolol succinate ER (TOPROL XL) 50 mg 24 hr tablet Take 1 tablet by mouth every afternoon. No current facility-administered medications for this visit. ALLERGIES Allergen Reactions Penicillins Unknown Pt himself has never had a reaction to penicillin. He listed it as an allergy because he has some family members that have gotten rashes from it in the past. He states that he has had amoxicillin in the past without issue REVIEW OF SYSTEMS: GENERAL: No weight loss, malaise or fevers GI: Negative for abdominal pain, nausea , vomiting, diarrhea, constipation, and signs of jaundice Positive for none PHYSICAL EXAM: BP 118/68 Pulse 72 Resp 18 Ht 5' 8 (1.73m) Wt 153 lb (69.4kg) BMI 23.27 kg/(m^2). GENERAL APPEARANCE: Well appearing, alert, in no acute distress, well-hydrated, well nourished.. ABDOMEN: soft, non-distended, non-tender, midline incision with katerin c/d/I and incision is healing NEURO: Alert, oriented x3, no asterixis, speech clear and articulate, and LEDEZMA DATA: Diagnostic tests reviewed for today's visit: Most recent labs Pathology report reviewed A total of 10 minutes was spent in direct patient contact.Greater than 50% of the direct patient contact time was spent in counseling or coordination of care. ASSESSMENT / PLAN Colon adenocarcinoma -Doing well today. Tolerating diet and having bowel function. Reviewed pathology report with patient and next steps. He already has an appointment with an oncologist in [place] and should keep that to discuss any possible adjuvant therapy. Kater[place] removed in office. Continue lifting restrictions for the next 4 weeks and then can gradually return to activity as tolerated. Follow up PRN from a surgery standpoint. Ishmael Tubbs DO Patient was seen and evaluated by myself on this day November 05, 2023. I agree with the presented documentation unless specifically noted. SIGNATURE: Yudi Avelar MD PATIENT NAME: Christopher Payne DATE: November 05, 2023 TIME: 4:45 PM Pager: [phone] documented in this encounter [facility] 11-03-2023 Miscellaneous Notes The nurse at the patient's custodial where he is rehabbing called and scheduled a new patient appointment with for 11/10/2023 @ 1:[address]William Guzman for Invasive colorectal adenocarcinoma per discharge from 10/17/2023 Sulema Conley Patient discharged. Dr. Mora aware of note. He has not received any correspondence regarding patient. Darlene Frazier RN Received call today from [facility] stating patient is being referred to [place]. Currently inpatient. Provider will be putting in referral. Once entered, please review and advise. documented in this encounter [facility] 10-29-2023 Note HNO ID: [id number] Author: Corine Guthrie RN Service: Nursing Author Type: Registered Nurse Type: Progress Notes Filed: 10/29/2023 7:13 PM Note Text: Patient continues to complain of heartburn, painful swallowing, difficulty eating solid foods. Tums administered per order. Patient had an episode of vomiting after taking a tylenol tablet. Patient complained of burning pain in his throat and chest. Updated surgery resident. Discussed patient has been receiving frequent oral potassium supplements. Resident at the bedside and discussed with patient. Okay to discharge at this time. Protonix to continue at discharge as ordered. Updated nurse at [facility]. [facility] 10-29-2023 Note HNO ID: [id number] Author: Corine Guthrie RN Service: Nursing Author Type: Registered Nurse Type: Progress Notes Filed: 10/29/2023 4:32 PM Note Text: Nurse to nurse report called to Yasmeen @ [facility]. [facility] 10-29-2023 Note HNO ID: [id number] Author: Aliec Gresham RN Service: Care Management Author Type: Registered Nurse Type: Care Mgt Progress Note Filed: 10/29/2023 2:17 PM Note Text: CARE MANAGEMENT DISCHARGE NOTE SERVICE DATE: 10/29/2023 SERVICE TIME: 11:42 AM LOS: 12 days Needs Prior to Discharge: None;Ready for Discharge Caregiver is ready, willing and able to meet the patient's needs as recommended by the inter-professional team: Yes Name of Caregiver: SNF Transportation Arrangements: Ambulance Transportation Agency and Phone #:: [facility] ( [facility] ) [phone] / [phone] Date of Trip: 10/29/23 Time of Trip: 1700 Type of Service: BLS Non-emergency Is Patient Medicaid Pending?: No Was transportation financial coverage discussed with family?: 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 Destination: [facility] Financial Care Management Responsibility: None Plan discharge to [facility] today via cot. Auth obtained. RN to call report and send avs in envelope provided. Addendum: leaving at 630pm SIGNATURE: Alice Gresham RN PATIENT NAME: CHRISTOPHER Payne DATE: October 29, 2023 TIME: 11:42 AM PAGER/CONTACT #: [phone] [facility] 10-29-2023 Note HNO ID: [id number] Author: Renuka Melvin Service: Care Management Author Type: ? Type: Care Mgt Progress Note Filed: 10/29/2023 11:10 AM Note Text: [facility] PRECERT NOTE [facility] PLAN MEDICAID OF [place] approved Snf Facility for [facility]. Precert approved through 11/05. Per Michelle from [facility]: [facility] Medicaid precert for [facility] is approved for 7 days 10/29 to 11/05 REF# [id number] Janet will follow case [id number] NRD 11/05 For any additional questions regarding approvals, transport or care management needs, please contact the CM assigned to this patient in the Treatment Team. SIGNATURE: Renuka Melvin DATE: October 29, 2023 TIME: 11:09 AM [facility] 10-29-2023 Note HNO ID: [id number] Author: Sofia Lawrence, RESEARCH CHEMICAL ENGINEER.VARITYPE OPERATOR Service: General Surgery Author Type: Nurse Specialist Type: Progress Notes Filed: 10/29/2023 10:58 AM Note Text: Emergency General Surgery Progress Note SERVICE DATE: October 29, 2023 SERVICE TIME: 0700 Emergency General Surgery Service Pager: For questions or concerns Mon-Fri 6a-5p please page [phone]. After 5pm and on Weekends and Holidays, please page [phone] if in ICU or [phone] if on RNF. SUBJECTIVE: No acute events overnight. Reports doing well and planning to transition to SNF soon. States surgical pain is controlled. Admits to occasional : heartburn Tolerating diet DIET GASTRO INTESTINAL Nausea No Emesis No Flatus Yes Bowel movement Yes Pain Controlled Yes Ambulating minimal OBJECTIVE: Vitals: Temp (24hrs), Av.7 ?C (98 ?F), Min:36.5 ?C (97.7 ?F), Max:37.1 ?C (98.8 ?F) BP 122/84 Pulse 91 Temp 36.5 ?C (97.7 ?F) (Oral) Resp 16 Ht 172.7 cm (5' 8 ) Wt 70.2 kg (154 lb 12.2 oz) SpO2 93% BMI 23.53 kg/m? O2 Therapy: Room Air IANDO: Date 10/28/23699 - 10/29/23 0659 10/29/23 07 - 10/30/23 0659 Shift 2441-0301 9820-0930 3028-0471 24 Hour Total 2758-3067 1778-3742 1467-9678 24 Hour Total INTAKE PO 240 240 PO 240 240 Shift Total 240 240 OUTPUT Urine 400 200 600 Void (ml) 400 200 600 Urine Not Saved. 1 x 2 x 1 x 4 x # of BMs Number of BMs 1 x 2 x 1 x 4 x Shift Total 400 200 600 Weight (kg) 70.2 70.2 70.2 70.2 70.2 70.2 70.2 70.2 MEDICATIONS Current Facility-Administered Medications Medication Dose Route Frequency metoclopramide HCl 10 mg tab(s) (REGLAN) 10 mg ORAL TID before MEALS pantoprazole DR 40 mg tab(s) (PROTONIX) 40 mg ORAL DAILY (6 AM) calcium carbonate 1,000 mg chewable tab(s) (TUMS) 1,000 mg ORAL TID PRN tamsulosin 0.4 mg cap(s) (FLOMAX) 0.4 mg ORAL DAILY trospium 20 mg tab(s) (SANCTURA) 20 mg ORAL BID AC enoxaparin 40 mg injection (LOVENOX) 40 mg SUBCUTANEOUS q 24 HR traMADol 50 mg tab(s) (ULTRAM) 50 mg ORAL q 6 H PRN ipratropium-albuterol 3 mL nebulizer solution (DUONEB) 3 mL INHALATION q 4 H PRN cyclobenzaprine 5 mg tab(s) (FLEXERIL) 5 mg ORAL TID mometasone-formoterol 200-5 mcg/actuation 2 Puff inhaler (DULERA) 2 Puff INHALATION BID albuterol 2.5 mg /3 mL (0.083 %) 2.5 mg (PROVENTIL) 2.5 mg INHALATION q 6 H PRN amLODIPine 2.5 mg tab(s) (NORVASC) 2.5 mg ORAL DAILY metoprolol succinate ER 25 mg tab(s) (TOPROL XL) 25 mg ORAL DAILY ondansetron 4 mg tab(s) (ZOFRAN) 4 mg ORAL q 6 H PRN Or ondansetron (PF) 4 mg injection (ZOFRAN) 4 mg INTRAVENOUS q 6 H PRN morphine 2 mg injection 2 mg INTRAVENOUS q 4 H PRN acetaminophen 975 mg tab(s) (TYLENOL) 975 mg ORAL QID NaCl 0.9% iv flush bag 20 mL INTRAVENOUS PRN Labs: Recent Labs 10/29/23 0603 10/28/23 0603 NA 135* 135* K 2.9* 3.5* CHLOR 100 102 CO2 26 19* BUN 2* <2* CREAT 0.47* 0.48* GLUC 106* 98 ANION 9 14 CA 8.2* 7.8* MG 1.9 -- WBC 7.68 8.14 HB 8.4* 8.0* HCT 26.9* 24.8* PLT 494* 458* Physical Exam: GENERAL: No distress, Alert NEURO: AANDOx3, CN II-XII grossly intact HEENT: normocephalic, atraumatic LUNGS: Unlabored breathing on RA, equal chest rise bilaterally CARDIAC: Regular rate, warm and well perfused distal extremities ABDOMEN: Soft, mild incisional TTP, non-distended. Midline incision C/D/I with katerin EXTREMITIES: LEDEZMA, No deformities, No edema SKIN: Skin color, texture, turgor normal, No rashes or lesions ASSESSMENT AND PLAN: Assessment Active Hospital Problems Diagnosis Date Noted Colonic mass 10/17/2023 S/P left hemicolectomy 10/27/2023 Hypokalemia 10/27/2023 Pulmonary emphysema (HCC) 10/27/2023 Malnutrition of mild degree (HCC) 10/27/2023 Abcess of tongue 10/18/2023 Assessment: 63 year old male with a PMH of COPD and hypertension who presented for progressively worsening abdominal pain, fatigue, and changes in stool habits who presented with descending colon mass associated with contained microperforation and abscess concerning for undiagnosed colon cancer Hospital Course/Operations/Procedures: 10/21/2023 Procedure(s): COLECTOMY SIGMOID W/ COLORECTAL ANASTOMOSIS CYSTOSCOPY WITH STENT PLACEMENT Plan: Colon mass concerning for carcinoma with contained microperforation and abscess S/P open left hemicolectomy with colorectal anastomosis - Pain control - Soft GI diet - PPI - ABX course completed - Hypokalemia: replete IV and PO, recheck K+ this afternoon - Pathology: Colon biopsy with High grade Dysplasia, possible invasion - Surgical Pathology invasive adenocarcinoma, invasion into pericolonic soft tissue - Oncology: - Patient wants to go to Dr. Shelton or [place] at D/C COPD not on Home O2 - Pulmonary Hygiene - Encourage OOB/IS use - Home Inhalers Dispo planning: - PT: SNF - Precert pendng Discussed with attending: Dr. Guzman Follow up needs: GI: repeat colonoscopy for polypectomy in 3 months. Call (more content not included)... [facility] 10-28-2023 Note HNO ID: [id number] Author: Bernabe Goetz MD Service: General Surgery Author Type: Resident Type: Progress Notes Filed: 10/28/2023 4:03 PM Note Text: Attestation signed by Evy Guzman MD at 11/07/2023 6:20 PM Attending Note I evaluated the patient and personally participated in the aguilar components on 10/28/2023 I agree with the resident's findings and plan as documented and have discussed the case and management of the patient's care with the resident. Evy Guzman MD Delayed entry Emergency General Surgery Progress Note SERVICE DATE: October 28, 2023 Emergency General Surgery Service Pager: For questions or concerns Mon-Fri 6a-5p please page [phone]. After 5pm and on Weekends and Holidays, please page [phone] if in ICU or [phone] if on RNF. SUBJECTIVE: NAOE. Patient doing well. Pain is controlled. Tolerating his diet. Continues to have bowel function. Tolerating diet DIET GASTRO INTESTINAL OBJECTIVE: Vitals: Temp (24hrs), Av.6 ?C (97.8 ?F), Min:36.3 ?C (97.3 ?F), Max:36.7 ?C (98.1 ?F) BP 102/77 Pulse 102 Temp 36.6 ?C (97.9 ?F) (Oral) Resp 18 Ht 172.7 cm (5' 8 ) Wt 70.2 kg (154 lb 12.2 oz) SpO2 100% BMI 23.53 kg/m? O2 Therapy: Room Air IANDO: Date 10/27/23 1500 - 10/28/23 0659 10/28/23 0700 - 10/29/23 0659 Shift 0748-7791 9640-1079 24 Hour Total 5774-9028 0016-5867 6367-8465 24 Hour Total INTAKE PO 240 240 240 240 PO 240 240 240 240 IV 50 50 100 Volume (mL) (piperacillin-tazobactam iv piggyback 3.375 g in dextrose (iso-osmotic) 50 mL (ZOSYN)) 50 50 100 Shift Total 50 290 340 240 240 OUTPUT Urine 742 978 2006 400 400 Void (ml) 921 537 1770 400 400 Urine Not Saved. 2 x 4 x 1 x 1 x # of BMs Number of BMs 2 x 2 x 1 x 1 x Shift Total 117 279 4204 400 400 Weight (kg) 70.2 70.2 70.2 70.2 70.2 70.2 70.2 MEDICATIONS Current Facility-Administered Medications Medication Dose Route Frequency metoclopramide HCl 10 mg tab(s) (REGLAN) 10 mg ORAL TID before MEALS pantoprazole DR 40 mg tab(s) (PROTONIX) 40 mg ORAL DAILY (6 AM) calcium carbonate 1,000 mg chewable tab(s) (TUMS) 1,000 mg ORAL TID PRN tamsulosin 0.4 mg cap(s) (FLOMAX) 0.4 mg ORAL DAILY trospium 20 mg tab(s) (SANCTURA) 20 mg ORAL BID AC enoxaparin 40 mg injection (LOVENOX) 40 mg SUBCUTANEOUS q 24 HR traMADol 50 mg tab(s) (ULTRAM) 50 mg ORAL q 6 H PRN ipratropium-albuterol 3 mL nebulizer solution (DUONEB) 3 mL INHALATION q 4 H PRN cyclobenzaprine 5 mg tab(s) (FLEXERIL) 5 mg ORAL TID mometasone-formoterol 200-5 mcg/actuation 2 Puff inhaler (DULERA) 2 Puff INHALATION BID albuterol 2.5 mg /3 mL (0.083 %) 2.5 mg (PROVENTIL) 2.5 mg INHALATION q 6 H PRN amLODIPine 2.5 mg tab(s) (NORVASC) 2.5 mg ORAL DAILY metoprolol succinate ER 25 mg tab(s) (TOPROL XL) 25 mg ORAL DAILY ondansetron 4 mg tab(s) (ZOFRAN) 4 mg ORAL q 6 H PRN Or ondansetron (PF) 4 mg injection (ZOFRAN) 4 mg INTRAVENOUS q 6 H PRN morphine 2 mg injection 2 mg INTRAVENOUS q 4 H PRN acetaminophen 975 mg tab(s) (TYLENOL) 975 mg ORAL QID NaCl 0.9% iv flush bag 20 mL INTRAVENOUS PRN Labs: Recent Labs 10/28/23 0603 10/27/23 0533 NA 135* 137 K 3.5* 2.8* CHLOR 102 102 CO2 19* 19* BUN <2* 2* CREAT 0.48* 0.50* GLUC 98 92 ANION 14 16 CA 7.8* 7.9* WBC 8.14 8.65 HB 8.0* 8.1* HCT 24.8* 25.3* PLT 458* 473* Physical Exam: GENERAL: No distress, Alert NEURO: AANDOx3, CN II-XII grossly intact HEENT: normocephalic, atraumatic LUNGS: Unlabored breathing, equal chest rise bilaterally CARDIAC: Regular rate, warm and well perfused distal extremities ABDOMEN: Soft, non-tender, non-distended, midline incision C/D/I with katerin, no erythema EXTREMITIES: LEDEZMA, No deformities, No edema SKIN: Skin color, texture, turgor normal, No rashes or lesions ASSESSMENT AND PLAN: Assessment Active Hospital Problems Diagnosis Date Noted Colonic mass 10/17/2023 S/P left hemicolectomy 10/27/2023 Hypokalemia 10/27/2023 Pulmonary emphysema (HCC) 10/27/2023 Malnutrition of mild degree (HCC) 10/27/2023 Abcess of tongue 10/18/2023 Assessment: 63 year old male with a PMH of COPD and hypertension who presented for progressively worsening abdominal pain, fatigue, and changes in stool habits who presented with descending colon mass associated with contained microperforation and abscess concerning for undiagnosed colon cancer. Hospital Course/Operations/Procedures: 10/21/2023 Procedure(s): COLECTOMY SIGMOID W/ COLORECTAL ANASTOMOSIS CYSTOSCOPY WITH STENT PLACEMENT Colon mass concerning for carcinoma with contained microperforation and abscess S/P open left hemicolectomy with colorectal anastomosis - Regular diet - Pain and nausea control PRN - Pathology: - Colon biopsy with High grade Dysplasia, possible invasion (more content not included)... [facility] 10-28-2023 Note HNO ID: [id number] Author: Alice Gresham RN Service: Care Management Author Type: Registered Nurse Type: Care Mgt Progress Note Filed: 10/28/2023 3:26 PM Note Text: CARE MANAGEMENT PROGRESS NOTE SERVICE DATE: 10/28/2023 SERVICE TIME: 3:25 PM LOS: 11 days [facility] accepted and precert started. . . SIGNATURE: Alice Gresham RN PATIENT NAME: CHRISTOPHER Payne DATE: October 28, 2023 TIME: 3:25 PM PAGER/CONTACT #: [phone] [facility] 10-28-2023 Note HNO ID: [id number] Author: Lenora Diamond MD Service: Hematology/Oncology Author Type: Physician Type: Progress Notes Filed: 10/28/2023 7:32 PM Note Text: Hematology/Oncology SERVICE SERVICE DATE: 10/28/2023 SERVICE TIME: 0835 AM REASON FOR CONSULT: possible colon cancer REQUESTING PHYSICIAN: Surgery team PRIMARY CARE PHYSICIAN: No primary care provider on file. Subjective Mr. Payne is a 63 year old male who presented to ER on 10/17/23 with c/o abd pain. This is a 63 year old male past history of COPD not on home oxygen presents for abdominal pain over the last 2 months. He states his abdominal pain is mostly located in the left lower quadrant and is associated with increased fatigue and lightheadedness. He states this pain has gotten progressively worse over the time period. He states he has also had tenesmus and pencil thin stools over this timeframe. Had an appointment scheduled for 2 weeks from now prior to presenting here. He denies any bloody stools or weight loss. He is a former smoker having smoked 1 pack/day for the last 30 years. He has never had a colonoscopy. He had originally presented to the ED in [place]. There he underwent a CT that demonstrated a 7 cm soft tissue mass in his descending colon as well as fat stranding in his left paracolic gutter with what appears to be a sinus tract leading to a 4 cm abscess cavity. There is an additional 2.5 cm abscess in the anterior bowel wall. Creatinine 0.47, hemoglobin 9.0, WBC 7.3. Pt underwent a colonoscopy on 10/20/23 with GI and noted: A fungating, infiltrative and ulcerated partially obstructing large mass was found in the sigmoid colon . The mass was circumferential. The mass measured eight cm in length (20-28 cm from anal verge). This was biopsied with a cold forceps for histology. Verification of patient identification for the specimen was done. Estimated blood loss was minimal. A 10 mm polyp was found in the recto-sigmoid colon. The polyp was semi-pedunculated. Polypectomy was not attempted due to inadequate bowel preparation. An 8 mm polyp was found in the rectum. The polyp was sessile. Polypectomy was not attempted due to inadequate bowel preparation. Multiple small and large-mouthed diverticula were found in the entire colon. Says he cannot come here for follow up. Lives in [place] and doesn't drive. Wondering if he can see someone in [place] at d/c. Says he is not on home oxygen. No longer smokes. Drinks 3-5 beers per day. Father has a hx of colon cancer but of multi organ failure. Pt denies any blood in his stool, weight loss. Has never had a colonoscopy before. Interval history: Today he is doing ok. S/p surgery last week. Awaiting SNF placement. Sitting up eating breakfast. History reviewed. No pertinent past medical history. History reviewed. No pertinent surgical history. No family history on file. Social History Tobacco Use Smoking status: Every Day amLODIPine (NORVASC) 2.5 mg tablet, Take 1 tablet by mouth every afternoon., Disp: , Rfl: BREZTRI AEROSPHERE 160-9-4.8 mcg/actuation HFA aerosol inhaler, INHALE 2 (TWO) PUFFS twice a day, Disp: , Rfl: metoprolol succinate ER (TOPROL XL) 50 mg 24 hr tablet, Take 1 tablet by mouth every afternoon., Disp: , Rfl: Current Facility-Administered Medications Medication Dose Route Frequency ondansetron 4 mg tab(s) (ZOFRAN) 4 mg ORAL q 6 H PRN Or ondansetron (PF) 4 mg injection (ZOFRAN) 4 mg INTRAVENOUS q 6 H PRN morphine 2 mg injection 2 mg INTRAVENOUS q 4 H PRN acetaminophen 975 mg tab(s) (TYLENOL) 975 mg ORAL QID NaCl 0.9% iv flush bag 20 mL INTRAVENOUS PRN amLODIPine 2.5 mg tab(s) (NORVASC) 2.5 mg ORAL DAILY metoprolol succinate ER 25 mg tab(s) (TOPROL XL) 25 mg ORAL DAILY mometasone-formoterol 200-5 mcg/actuation 2 Puff inhaler (DULERA) 2 Puff INHALATION BID albuterol 2.5 mg /3 mL (0.083 %) 2.5 mg (PROVENTIL) 2.5 mg INHALATION q 6 H PRN tamsulosin 0.4 mg cap(s) (FLOMAX) 0.4 mg ORAL DAILY trospium 20 mg tab(s) (SANCTURA) 20 mg ORAL BID AC enoxaparin 40 mg injection (LOVENOX) 40 mg SUBCUTANEOUS q 24 HR traMADol 50 mg tab(s) (ULTRAM) 50 mg ORAL q 6 H PRN piperacillin-tazobactam iv piggyback 3.375 g in dextrose (iso-osmotic) 50 mL (ZOSYN) 3.375 g INTRAVENOUS q 6 H ipratropium-albuterol 3 mL nebulizer solution (DUONEB) 3 mL INHALATION q 4 H PRN cyclobenzaprine 5 mg tab(s) (FLEXERIL) 5 mg ORAL TID calcium carbonate 1,000 mg chewable tab(s) (TUMS) 1,000 mg ORAL TID PRN pantoprazole DR 40 mg tab(s) (PROTONIX) 40 mg ORAL DAILY (6 AM) Allergies As of Date: 10/15/2023 Allergen Noted Reaction PENICILLINS 05/19/2017 Unknown Fully Assessed 05/19/2017 Lines, Drains, and Airways Line Duration Peripheral 10/21/23 1045 Right Hand 18 Gauge 6 days COMPLETE REVIEW OF SYSTEMS: PAIN ASSESSMENT: no current pain. GENERAL: Fatigue RESPIRATORY: Severe COPD CARDIOVASCULAR: Negative for chest pain, leg swell (more content not included)... [facility] 10-27-2023 Note HNO ID: [id number] Author: Le Morales APRN.CONCIERGE MANAGER Service: General Surgery Author Type: Nurse Practitioner Type: Progress Notes Filed: 10/27/2023 5:12 PM Note Text: Emergency General Surgery Progress Note SERVICE DATE: October 27, 2023 Emergency General Surgery Service Pager: For questions or concerns Mon-Fri 6a-5p please page [phone]. After 5pm and on Weekends and Holidays, please page [phone] if in ICU or [phone] if on RNF. SUBJECTIVE: Mr. Payne reports continued epigastric abdominal pain when he takes pills or drinks sips otherwise states doing okay. Tolerating diet DIET GASTRO INTESTINAL OBJECTIVE: Vitals: Temp (24hrs), Av.6 ?C (97.8 ?F), Min:36.3 ?C (97.3 ?F), Max:36.9 ?C (98.4 ?F) BP 129/88 Pulse 111 Temp 36.6 ?C (97.9 ?F) (Oral) Resp 18 Ht 172.7 cm (5' 8 ) Wt 70.2 kg (154 lb 12.2 oz) SpO2 98% BMI 23.53 kg/m? O2 Therapy: Room Air IANDO: Date 10/26/23 1500 - 10/27/23 0659 10/27/23 0700 - 10/28/23 0659 Shift 5926-4541 2752-8236 24 Hour Total 3894-1263 8957-6373 1214-3654 24 Hour Total INTAKE PO 100 580 PO 100 580 IV 50 50 Volume (mL) (piperacillin-tazobactam iv piggyback 3.375 g in dextrose (iso-osmotic) 50 mL (ZOSYN)) 50 50 Shift Total 100 50 630 OUTPUT Urine 700 700 300 300 Void (ml) 700 700 300 300 Urine Not Saved. 3 x 2 x 2 x # of BMs Number of BMs 1 x 2 x 3 x Shift Total 700 700 300 300 Weight (kg) 70.2 70.2 70.2 70.2 70.2 70.2 70.2 MEDICATIONS Current Facility-Administered Medications Medication Dose Route Frequency pantoprazole DR 40 mg tab(s) (PROTONIX) 40 mg ORAL DAILY (6 AM) calcium carbonate 1,000 mg chewable tab(s) (TUMS) 1,000 mg ORAL TID PRN tamsulosin 0.4 mg cap(s) (FLOMAX) 0.4 mg ORAL DAILY trospium 20 mg tab(s) (SANCTURA) 20 mg ORAL BID AC enoxaparin 40 mg injection (LOVENOX) 40 mg SUBCUTANEOUS q 24 HR traMADol 50 mg tab(s) (ULTRAM) 50 mg ORAL q 6 H PRN piperacillin-tazobactam iv piggyback 3.375 g in dextrose (iso-osmotic) 50 mL (ZOSYN) 3.375 g INTRAVENOUS q 6 H ipratropium-albuterol 3 mL nebulizer solution (DUONEB) 3 mL INHALATION q 4 H PRN cyclobenzaprine 5 mg tab(s) (FLEXERIL) 5 mg ORAL TID mometasone-formoterol 200-5 mcg/actuation 2 Puff inhaler (DULERA) 2 Puff INHALATION BID albuterol 2.5 mg /3 mL (0.083 %) 2.5 mg (PROVENTIL) 2.5 mg INHALATION q 6 H PRN amLODIPine 2.5 mg tab(s) (NORVASC) 2.5 mg ORAL DAILY metoprolol succinate ER 25 mg tab(s) (TOPROL XL) 25 mg ORAL DAILY ondansetron 4 mg tab(s) (ZOFRAN) 4 mg ORAL q 6 H PRN Or ondansetron (PF) 4 mg injection (ZOFRAN) 4 mg INTRAVENOUS q 6 H PRN morphine 2 mg injection 2 mg INTRAVENOUS q 4 H PRN acetaminophen 975 mg tab(s) (TYLENOL) 975 mg ORAL QID NaCl 0.9% iv flush bag 20 mL INTRAVENOUS PRN Labs: Recent Labs 10/27/23 0533 10/26/23 0536 NA 137 137 K 2.8* 3.2* CHLOR 102 102 CO2 19* 21* BUN 2* 7* CREAT 0.50* 0.57* GLUC 92 82 ANION 16 14 CA 7.9* 7.9* WBC 8.65 9.90 HB 8.1* 8.5* HCT 25.3* 27.5* PLT 473* 519* Physical Exam: GENERAL: No distress, Alert NEURO: AANDOx3, CN II-XII grossly intact HEENT: normocephalic, atraumatic LUNGS: Unlabored breathing, equal chest rise bilaterally CARDIAC: Regular rate, warm and well perfused distal extremities ABDOMEN: Soft, non-tender, non-distended, midline incision C/D/I with katerin, no erythema EXTREMITIES: LEDEZMA, No deformities, No edema SKIN: Skin color, texture, turgor normal, No rashes or lesions ASSESSMENT AND PLAN: Assessment Active Hospital Problems Diagnosis Date Noted Colonic mass 10/17/2023 Abcess of tongue 10/18/2023 Assessment: 63 year old male with a PMH of COPD and hypertension who presented for progressively worsening abdominal pain, fatigue, and changes in stool habits who presented with descending colon mass associated with contained microperforation and abscess concerning for undiagnosed colon cancer. Hospital Course/Operations/Procedures: 10/21/2023 Procedure(s): COLECTOMY SIGMOID W/ COLORECTAL ANASTOMOSIS CYSTOSCOPY WITH STENT PLACEMENT Colon mass concerning for carcinoma with contained microperforation and abscess S/P open left hemicolectomy with colorectal anastomosis - Regular diet - Pain and nausea control PRN - Pathology: - Colon biopsy with High grade Dysplasia, possible invasion - Surgical Pathology invasive adenocarcinoma, invasion into pericolonic soft tissue, 0/17 nodes - Oncology Consult: - Patient wants to go to Dr. Shelton or [place] at D/C - Antibiotics: Zosyn x 7 days total. Ending 10/28 - PT/OT recommending SNF Hypokalemia - replete IV and recheck in am GERD - PPI added today COPD not on Home O2 - Pulmonary Hygiene - Encourage OOB/IS use - Home Inhalers Follow up: repeat colonoscopy for polypectomy in 3 months. Call [phone] at time of discharge to schedule with Dr Segovia or Dr Schmidt. Dispo planning: medically stable for discharge. Awaiting SNF acceptance per CM. Assess (more content not included)... [facility] 10-27-2023 Note HNO ID: [id number] Author: Alice Gresham RN Service: Care Management Author Type: Registered Nurse Type: Care Mgt Progress Note Filed: 10/27/2023 3:50 PM Note Text: CARE MANAGEMENT PROGRESS NOTE SERVICE DATE: 10/27/2023 SERVICE TIME: 3:49 PM LOS: 10 days [facility] cannot accept. Referrals sent to [facility] and [facility]. Awaiting acceptance. . SIGNATURE: Alice Gresham RN PATIENT NAME: CHRISTOPHER Payne DATE: October 27, 2023 TIME: 3:49 PM PAGER/CONTACT #: [phone] [facility] 10-26-2023 Note HNO ID: [id number] Author: Malinda Patel RN Service: Care Management Author Type: Registered Nurse Type: Care Mgt Progress Note Filed: 10/26/2023 1:16 PM Note Text: CARE MANAGEMENT PROGRESS NOTE SERVICE DATE: 10/26/2023 SERVICE TIME: 1:13 PM LOS: 9 days Discussed SNF choices with patient. Pt would like referral sent to [facility], sent referral. Pt had no backups, CM kept the SNF list at bedside and ask pt to review in case [facility] is unable to accept. Pt will need auth, 7000, and transport. CM to follow clinical progress. SIGNATURE: Malinda Patel RN PATIENT NAME: CHRISTOPHER Payne DATE: October 26, 2023 TIME: 1:13 PM PAGER/CONTACT #: [phone] [facility] 10-26-2023 Note HNO ID: [id number] Author: Susan Parrish MD Service: General Surgery Author Type: Physician Type: Progress Notes Filed: 11/03/2023 9:35 AM Note Text: Emergency General Surgery Progress Note SERVICE DATE: October 26, 2023 Emergency General Surgery Service Pager: For questions or concerns Mon-Fri 6a-5p please page [phone]. After 5pm and on Weekends and Holidays, please page [phone] if in ICU or [phone] if on RNF. SUBJECTIVE: No acute events overnight. Patient states he is feeling about the same as he did yesterday. Continues to pass gas and have bowel movements. Continues to do his physical therapy exercises. Patient does state that he has some epigastric abdominal pain when he takes pills or drinks sips. Says this has gotten slightly better over the past day. Tolerating diet DIET GASTRO INTESTINAL OBJECTIVE: Vitals: Temp (24hrs), Av.4 ?C (97.6 ?F), Min:36.3 ?C (97.3 ?F), Max:36.6 ?C (97.9 ?F) BP 129/89 Pulse 100 Temp 36.5 ?C (97.7 ?F) (Oral) Resp 18 Ht 172.7 cm (5' 8 ) Wt 65.5 kg (144 lb 6.4 oz) SpO2 94% BMI 21.96 kg/m? O2 Therapy: Room Air IANDO: Date 10/25/23699 - 10/26/23 0659 10/26/23699 - 10/27/23 0659 Shift 5567-9322 0978-6463 9503-0550 24 Hour Total 4864-3108 5902-8396 1564-4851 24 Hour Total INTAKE Shift Total OUTPUT Urine 100 400 500 Void (ml) 100 400 500 # of BMs Number of BMs 1 x 1 x Shift Total 100 400 500 Weight (kg) 65.5 65.5 65.5 65.5 65.5 65.5 65.5 65.5 MEDICATIONS Current Facility-Administered Medications Medication Dose Route Frequency tamsulosin 0.4 mg cap(s) (FLOMAX) 0.4 mg ORAL DAILY trospium 20 mg tab(s) (SANCTURA) 20 mg ORAL BID AC enoxaparin 40 mg injection (LOVENOX) 40 mg SUBCUTANEOUS q 24 HR traMADol 50 mg tab(s) (ULTRAM) 50 mg ORAL q 6 H PRN piperacillin-tazobactam iv piggyback 3.375 g in dextrose (iso-osmotic) 50 mL (ZOSYN) 3.375 g INTRAVENOUS q 6 H ipratropium-albuterol 3 mL nebulizer solution (DUONEB) 3 mL INHALATION q 4 H PRN cyclobenzaprine 5 mg tab(s) (FLEXERIL) 5 mg ORAL TID mometasone-formoterol 200-5 mcg/actuation 2 Puff inhaler (DULERA) 2 Puff INHALATION BID albuterol 2.5 mg /3 mL (0.083 %) 2.5 mg (PROVENTIL) 2.5 mg INHALATION q 6 H PRN amLODIPine 2.5 mg tab(s) (NORVASC) 2.5 mg ORAL DAILY metoprolol succinate ER 25 mg tab(s) (TOPROL XL) 25 mg ORAL DAILY ondansetron 4 mg tab(s) (ZOFRAN) 4 mg ORAL q 6 H PRN Or ondansetron (PF) 4 mg injection (ZOFRAN) 4 mg INTRAVENOUS q 6 H PRN morphine 2 mg injection 2 mg INTRAVENOUS q 4 H PRN acetaminophen 975 mg tab(s) (TYLENOL) 975 mg ORAL QID NaCl 0.9% iv flush bag 20 mL INTRAVENOUS PRN Labs: Recent Labs 10/26/23 0536 10/25/23 0500 NA 137 136 K 3.2* 3.4* CHLOR 102 104 CO2 21* 24 BUN 7* 10 CREAT 0.57* 0.58* GLUC 82 91 ANION 14 8* CA 7.9* 7.4* WBC 9.90 7.73 HB 8.5* 7.8* HCT 27.5* 24.4* PLT 519* 493* Physical Exam: GENERAL: No distress, Alert NEURO: AANDOx3, CN II-XII grossly intact HEENT: normocephalic, atraumatic LUNGS: Unlabored breathing, equal chest rise bilaterally CARDIAC: Regular rate, warm and well perfused distal extremities ABDOMEN: Soft, mildly tender to palpation, nondistended, incision clean dry intact with katerin EXTREMITIES: LEDEZMA, No deformities, No edema SKIN: Skin color, texture, turgor normal, No rashes or lesions ASSESSMENT AND PLAN: Assessment Active Hospital Problems Diagnosis Date Noted Colonic mass 10/17/2023 Abcess of tongue 10/18/2023 Assessment: 63 year old male with a PMH of COPD and hypertension who presented for progressively worsening abdominal pain, fatigue, and changes in stool habits who presents with descending colon mass associated with contained microperforation and abscess concerning for undiagnosed colon cancer. Hospital Course/Operations/Procedures: 10/21/2023 Procedure(s): COLECTOMY SIGMOID W/ COLORECTAL ANASTOMOSIS CYSTOSCOPY WITH STENT PLACEMENT Colon mass concerning for carcinoma with contained microperforation and abscess - S/P open left hemicolectomy with colorectal anastomosis -Tolerating regular diet - Pain and nausea control PRN - Pathology: - Colon biopsy with High grade Dysplasia, possible invasion - Surgical Pathology invasive adenocarcinoma, invasion into pericolonic soft tissue, 0/ nodes - Oncology Consult: - Patient wants to go to Dr. Shelton or [place] at D/C - Antibiotics: Zosyn x 7 days total. Ending 10/28 - PT/OT recommending SNF -Patient electing to go to [facility] -Appreciate care management's assistance in dispo planning -Patient stable for discharge GERD -Will Tums -If continues to have sensation of epigastric pain with meds or food will add PPI COPD not on Home O2 - Pulmonary Hygiene - Encourage OOB/IS use - Home Inhalers Discussed with attending: Dr. Parrish SIGNATURE: Saul Fernandez DO PATIENT NAME: CHRISTOPHER Payne DATE: October 26, 2023 TIME: 0637 Pager: (more content not included)... [facility] 10-25-2023 Note HNO ID: [id number] Author: Susan Parrish MD Service: General Surgery Author Type: Physician Type: Progress Notes Filed: 11/03/2023 9:32 AM Note Text: Emergency General Surgery Progress Note SERVICE DATE: October 25, 2023 Emergency General Surgery Service Pager: For questions or concerns Mon-Fri 6a-5p please page [phone]. After 5pm and on Weekends and Holidays, please page [phone] if in ICU or [phone] if on RNF. SUBJECTIVE: Patient denies any abdominal pain. States he is passed gas and had bowel movement. He has been tolerating liquids without issue. He has tried solid foods but has had minimal so far. Tolerating diet DIET GASTRO INTESTINAL OBJECTIVE: Vitals: Temp (24hrs), Av.4 ?C (97.5 ?F), Min:36.2 ?C (97.2 ?F), Max:36.6 ?C (97.9 ?F) BP 107/73 Pulse 90 Temp 36.6 ?C (97.9 ?F) (Oral) Resp 16 Ht 172.7 cm (5' 8 ) Wt 65.5 kg (144 lb 6.4 oz) SpO2 96% BMI 21.96 kg/m? O2 Therapy: Room Air IANDO: MEDICATIONS Current Facility-Administered Medications Medication Dose Route Frequency tamsulosin 0.4 mg cap(s) (FLOMAX) 0.4 mg ORAL DAILY trospium 20 mg tab(s) (SANCTURA) 20 mg ORAL BID AC enoxaparin 40 mg injection (LOVENOX) 40 mg SUBCUTANEOUS q 24 HR traMADol 50 mg tab(s) (ULTRAM) 50 mg ORAL q 6 H PRN piperacillin-tazobactam iv piggyback 3.375 g in dextrose (iso-osmotic) 50 mL (ZOSYN) 3.375 g INTRAVENOUS q 6 H ipratropium-albuterol 3 mL nebulizer solution (DUONEB) 3 mL INHALATION q 4 H PRN cyclobenzaprine 5 mg tab(s) (FLEXERIL) 5 mg ORAL TID mometasone-formoterol 200-5 mcg/actuation 2 Puff inhaler (DULERA) 2 Puff INHALATION BID albuterol 2.5 mg /3 mL (0.083 %) 2.5 mg (PROVENTIL) 2.5 mg INHALATION q 6 H PRN amLODIPine 2.5 mg tab(s) (NORVASC) 2.5 mg ORAL DAILY metoprolol succinate ER 25 mg tab(s) (TOPROL XL) 25 mg ORAL DAILY ondansetron 4 mg tab(s) (ZOFRAN) 4 mg ORAL q 6 H PRN Or ondansetron (PF) 4 mg injection (ZOFRAN) 4 mg INTRAVENOUS q 6 H PRN morphine 2 mg injection 2 mg INTRAVENOUS q 4 H PRN acetaminophen 975 mg tab(s) (TYLENOL) 975 mg ORAL QID NaCl 0.9% iv flush bag 20 mL INTRAVENOUS PRN Labs: Recent Labs 10/25/23 0500 10/24/23 0416 10/24/23 0414 10/23/23 0618 10/22/23 0902 NA 136 -- 135* < > -- K 3.4* -- 3.2* < > -- CHLOR 104 -- 102 < > -- CO2 24 -- 21* < > -- BUN 10 -- 10 < > -- CREAT 0.58* -- 0.65* < > -- GLUC 91 -- 130* < > -- ANION 8* -- 12 < > -- CA 7.4* -- 7.6* < > -- ALB -- -- -- -- 1.8* AST -- -- -- -- 16 ALT -- -- -- -- 7* ALKPHOS -- -- -- -- 45 TBILI -- -- -- -- 0.2 WBC 7.73 9.74 -- < > -- HB 7.8* 8.8* -- < > -- HCT 24.4* 27.5* -- < > -- PLT 493* 613* -- < > -- < > = values in this interval not displayed. Physical Exam: GENERAL: No distress, Alert NEURO: AANDOx3, CN II-XII grossly intact HEENT: normocephalic, atraumatic LUNGS: Unlabored breathing, equal chest rise bilaterally CARDIAC: Regular rate, warm and well perfused distal extremities ABDOMEN: Soft, appropriately tender to palpation near the incision site, nondistended, katrein intact EXTREMITIES: LEDEZMA, No deformities, No edema SKIN: Skin color, texture, turgor normal, No rashes or lesions ASSESSMENT AND PLAN: Assessment Active Hospital Problems Diagnosis Date Noted Colonic mass 10/17/2023 Abcess of tongue 10/18/2023 Assessment: 63 year old male with a PMH of COPD and hypertension who presented for progressively worsening abdominal pain, fatigue, and changes in stool habits who presents with descending colon mass associated with contained microperforation and abscess concerning for undiagnosed colon cancer. Hospital Course/Operations/Procedures: 10/21/2023 Procedure(s): COLECTOMY SIGMOID W/ COLORECTAL ANASTOMOSIS CYSTOSCOPY WITH STENT PLACEMENT Colon mass concerning for carcinoma with contained microperforation and abscess - S/P open left hemicolectomy with colorectal anastomosis -GI soft diet Tolerating - Pain and nausea control PRN - Pathology: - Colon biopsy with High grade Dysplasia, possible invasion - Surgical Pathology invasive adenocarcinoma, invasion into pericolonic soft tissue, 0/17 nodes - Oncology Consult: - Patient wants to go to Dr. Shelton or [place] at D/C - Finaly staging needed - Antibiotics: Zosyn x 7 days total. Ending 10/28 - PT/OT recommending SNF -Patient discussed with care management his choices -Management following for dispo planning COPD not on Home O2 - Pulmonary Hygiene - Encourage OOB/IS use - Home Inhalers Discussed with attending: Dr. Parrish SIGNATURE: Saul Fernandez DO PATIENT NAME: CHRISTOPHER Payne DATE: October 25, 2023 TIME: 0756 Pager: [phone] Emergency General Surgery Service Pager: For questions or concerns Mon-Fri 6a-5p please page [phone]. After 5pm and on Weekends and Holidays, please page [phone] if in ICU or [phone] if on RNF. Emergency General Surgery (EGS) Staff Addendum: I have seen and examined this patient with the Surgery reside (more content not included)... [facility] 10-24-2023 Note HNO ID: [id number] Author: Alice Gresham RN Service: Care Management Author Type: Registered Nurse Type: Care Mgt Progress Note Filed: 10/24/2023 3:05 PM Note Text: CARE MANAGEMENT PROGRESS NOTE SERVICE DATE: 10/24/2023 SERVICE TIME: 3:05 PM LOS: 7 days [place] of Choice Given: Yes Level of Care Discussed: Snf Facility Financial Disclosure Provided: Yes Financial Disclosure Comments: [facility] affiliation Provider List: Snf Facility Provider list within the patient's requested geographic area shared with the patient/family: Yes within: 15 miles of zip code: [address] Quality and resource use metrics shared with the patient that are relevant to the patient's goals of care and treatment preferences:: Yes Metrics: Skin Integrity;Potentially Preventable 30-day Post Discharge Readmission Rates Physical and occupational therapy recommending SNF. Patient agreeable. Provided SNF list. Awaiting choices. Will have weekend team follow up. SIGNATURE: Alice Gresham RN PATIENT NAME: CHRISTOPHER Payne DATE: October 24, 2023 TIME: 3:05 PM PAGER/CONTACT #: [phone] [facility] 10-24-2023 Note HNO ID: [id number] Author: Susan Parrish MD Service: General Surgery Author Type: Physician Type: Progress Notes Filed: 11/03/2023 9:28 AM Note Text: Emergency General Surgery Progress Note SERVICE DATE: October 24, 2023 Emergency General Surgery Service Pager: For questions or concerns Mon-Fri 6a-5p please page [phone]. After 5pm and on Weekends and Holidays, please page [phone] if in ICU or [phone] if on RNF. SUBJECTIVE: Patient doing well this am. Had a BM overnight. No nausea/vomiting. Ambulating. OBJECTIVE: Vitals: Temp (24hrs), Av.4 ?C (97.6 ?F), Min:36.3 ?C (97.3 ?F), Max:36.7 ?C (98.1 ?F) BP 102/77 Pulse 88 Temp 36.6 ?C (97.9 ?F) (Oral) Resp 18 Ht 172.7 cm (5' 8 ) Wt 65.5 kg (144 lb 6.4 oz) SpO2 92% BMI 21.96 kg/m? O2 Therapy: Room Air IANDO: Date 10/23/23699 - 10/24/2365810/24/23699 - 10/25/23 0659 Shift 6020-3998 3565-6889 6028-0950 24 Hour Total 0769-9236 7154-1273 7629-2537 24 Hour Total INTAKE PO 240 240 480 PO 240 240 480 Shift Total 240 240 480 OUTPUT Urine 400 941 803 5681 Void (ml) 400 960 504 3623 Urine Incontinence/Not Saved 2 x 2 x Urine Not Saved. 1 x 1 x # of BMs Number of BMs 1 x 1 x Shift Total 400 511 567 8784 Weight (kg) 65.5 65.5 65.5 65.5 65.5 65.5 65.5 65.5 MEDICATIONS Current Facility-Administered Medications Medication Dose Route Frequency potassium chloride iv piggyback 20 mEq/100 mL 20 mEq INTRAVENOUS q2h lactated ringers iv infusion 50 mL/hr INTRAVENOUS CONTINUOUS tamsulosin 0.4 mg cap(s) (FLOMAX) 0.4 mg ORAL DAILY trospium 20 mg tab(s) (SANCTURA) 20 mg ORAL BID AC enoxaparin 40 mg injection (LOVENOX) 40 mg SUBCUTANEOUS q 24 HR traMADol 50 mg tab(s) (ULTRAM) 50 mg ORAL q 6 H PRN piperacillin-tazobactam iv piggyback 3.375 g in dextrose (iso-osmotic) 50 mL (ZOSYN) 3.375 g INTRAVENOUS q 6 H ipratropium-albuterol 3 mL nebulizer solution (DUONEB) 3 mL INHALATION q 4 H PRN cyclobenzaprine 5 mg tab(s) (FLEXERIL) 5 mg ORAL TID mometasone-formoterol 200-5 mcg/actuation 2 Puff inhaler (DULERA) 2 Puff INHALATION BID albuterol 2.5 mg /3 mL (0.083 %) 2.5 mg (PROVENTIL) 2.5 mg INHALATION q 6 H PRN amLODIPine 2.5 mg tab(s) (NORVASC) 2.5 mg ORAL DAILY metoprolol succinate ER 25 mg tab(s) (TOPROL XL) 25 mg ORAL DAILY ondansetron 4 mg tab(s) (ZOFRAN) 4 mg ORAL q 6 H PRN Or ondansetron (PF) 4 mg injection (ZOFRAN) 4 mg INTRAVENOUS q 6 H PRN morphine 2 mg injection 2 mg INTRAVENOUS q 4 H PRN acetaminophen 975 mg tab(s) (TYLENOL) 975 mg ORAL QID NaCl 0.9% iv flush bag 20 mL INTRAVENOUS PRN Labs: Recent Labs 10/24/23 0416 10/24/23 0414 10/23/23 0618 10/22/23 0902 10/22/23 0654 NA -- 135* 132* -- 136 K -- 3.2* 3.2* -- 4.1 CHLOR -- 102 102 -- 105 CO2 -- 21* 22 -- 19* BUN -- 10 10 -- 4* CREAT -- 0.65* 0.72* -- 0.56* GLUC -- 130* 124* -- 119* ANION -- 12 8* -- 12 CA -- 7.6* 7.4* -- 7.4* ALB -- -- -- 1.8* 1.7* AST -- -- -- 16 -- ALT -- -- -- 7* -- ALKPHOS -- -- -- 45 43 TBILI -- -- -- 0.2 0.2 WBC 9.74 -- 9.47 -- 8.69 HB 8.8* -- 7.5* -- 8.0* HCT 27.5* -- 24.4* -- 25.2* PLT 613* -- 441* -- 490* Physical Exam: GENERAL: No distress, Alert NEURO: AANDO, CN II-XII grossly intact HEENT: normocephalic, atraumatic LUNGS: Unlabored breathing, equal chest rise bilaterally CARDIAC: Regular rate, warm and well perfused distal extremities ABDOMEN: Soft, appropriately TTP, Midline with Katerin, c/d/I. EXTREMITIES: LEDEZMA, No deformities, No edema SKIN: Skin color, texture, turgor normal, No rashes or lesions ASSESSMENT AND PLAN: Assessment Active Hospital Problems Diagnosis Date Noted Colonic mass 10/17/2023 Abcess of tongue 10/18/2023 Assessment: 63 year old male with a PMH of COPD and hypertension who presented for progressively worsening abdominal pain, fatigue, and changes in stool habits who presents with descending colon mass associated with contained microperforation and abscess concerning for undiagnosed colon cancer. Hospital Course/Operations/Procedures: 10/21/2023 Procedure(s): COLECTOMY SIGMOID W/ COLORECTAL ANASTOMOSIS CYSTOSCOPY WITH STENT PLACEMENT Colon mass concerning for carcinoma with contained microperforation and abscess - S/P open left hemicolectomy with colorectal anastomosis - having Bowel function. Will advance to GI soft - Pain and nausea control PRN - Pathology: - Colon biopsy with High grade Dysplasia, possible invasion - Surgical Pathology pending - Oncology Consult: - Patient wants to go to Dr. Shelton or Morgan at D/C - Finaly staging needed after surgical pathology - Antibiotics: Zosyn x 7 days total. Ending 10/28 - PT/OT pending COPD not on Home O2 - Pulmonary Hygiene - Encourage OOB/IS use - Home Inhalers Discussed with attending: Dr. Matias SIGNATURE: Bernabe Goetz MD PATIENT NAME: CHRISTOPHER Payne DATE: October 24, 2023 TIME: 822 Pager: [phone] Emergency General Surgery Ser (more content not included)... [facility] 10-23-2023 Note HNO ID: [id number] Author: Bernabe Goetz MD Service: General Surgery Author Type: Resident Type: Progress Notes Filed: 10/23/2023 6:32 PM Note Text: Attestation signed by Anatoly Matias MD at 10/28/2023 2:56 PM ==== GENERAL SURGERY STAFF: I have personally seen and evaluated this patient and participated in the aguilar components of this encounter. I discussed the management of this case with the surgery resident team and independently confirmed the findings and plan of care as documented either attached or in their separate note from today. Any corrections or additional notes are made as needed. Active Hospital Problems Diagnosis Date Noted Colonic mass 10/17/2023 S/P left hemicolectomy 10/27/2023 Hypokalemia 10/27/2023 Pulmonary emphysema (HCC) 10/27/2023 Malnutrition of mild degree (HCC) 10/27/2023 Abcess of tongue 10/18/2023 Assessment and Plan: Post op encounter Recovering well Plan of care visit completed with: Provider, RN, Patient Anatoly Matias MD, FACS Section of Trauma, Surgery Critical Care, and Acute Care Surgery ==== Emergency General Surgery Progress Note SERVICE DATE: October 23, 2023 Emergency General Surgery Service Pager: For questions or concerns Mon-Fri 6a-5p please page [phone]. After 5pm and on Weekends and Holidays, please page [phone] if in ICU or [phone] if on RNF. SUBJECTIVE: Patient doing well this am. Some abdominal discomfort but otherwise pain is controlled. No nausea/vomiting. Reports minimal flatus, no Bms. OBJECTIVE: Vitals: Temp (24hrs), Av.2 ?C (97.1 ?F), Min:35.9 ?C (96.6 ?F), Max:36.3 ?C (97.3 ?F) BP 97/68 Pulse 105 Temp 36.3 ?C (97.3 ?F) (Oral) Resp 16 Ht 172.7 cm (5' 8 ) Wt 65.5 kg (144 lb 6.4 oz) SpO2 95% BMI 21.96 kg/m? O2 Therapy: Room Air IANDO: Date 10/22/231499 - 10/23/2365810/23/23 07 - 10/24/2359 Shift 5829-1346 3341-0443 24 Hour Total 7530-3505 7281-7415 2572-1216 24 Hour Total INTAKE PO 700 700 240 240 PO 700 700 240 240 IV 1000 1000 OR Crystalloid intake (mL) 1000 1000 Shift Total 1700 1700 240 240 OUTPUT Urine 200 200 400 500 900 Void (ml) 400 500 900 Urine Incontinence/Not Saved 2 x 2 x Urine Not Saved. 1 x 1 x Output ( External Collection Device 11/23/23 0030) 200 200 Shift Total 200 200 400 500 900 Weight (kg) 65.5 65.5 65.5 65.5 65.5 65.5 65.5 MEDICATIONS Current Facility-Administered Medications Medication Dose Route Frequency lactated ringers iv infusion 50 mL/hr INTRAVENOUS CONTINUOUS tamsulosin 0.4 mg cap(s) (FLOMAX) 0.4 mg ORAL DAILY trospium 20 mg tab(s) (SANCTURA) 20 mg ORAL BID AC enoxaparin 40 mg injection (LOVENOX) 40 mg SUBCUTANEOUS q 24 HR traMADol 50 mg tab(s) (ULTRAM) 50 mg ORAL q 6 H PRN piperacillin-tazobactam iv piggyback 3.375 g in dextrose (iso-osmotic) 50 mL (ZOSYN) 3.375 g INTRAVENOUS q 6 H ipratropium-albuterol 3 mL nebulizer solution (DUONEB) 3 mL INHALATION q 4 H PRN cyclobenzaprine 5 mg tab(s) (FLEXERIL) 5 mg ORAL TID mometasone-formoterol 200-5 mcg/actuation 2 Puff inhaler (DULERA) 2 Puff INHALATION BID albuterol 2.5 mg /3 mL (0.083 %) 2.5 mg (PROVENTIL) 2.5 mg INHALATION q 6 H PRN amLODIPine 2.5 mg tab(s) (NORVASC) 2.5 mg ORAL DAILY metoprolol succinate ER 25 mg tab(s) (TOPROL XL) 25 mg ORAL DAILY ondansetron 4 mg tab(s) (ZOFRAN) 4 mg ORAL q 6 H PRN Or ondansetron (PF) 4 mg injection (ZOFRAN) 4 mg INTRAVENOUS q 6 H PRN morphine 2 mg injection 2 mg INTRAVENOUS q 4 H PRN acetaminophen 975 mg tab(s) (TYLENOL) 975 mg ORAL QID NaCl 0.9% iv flush bag 20 mL INTRAVENOUS PRN Labs: Recent Labs 10/23/23 0618 10/22/23 0902 10/22/23 0654 NA 132* -- 136 K 3.2* -- 4.1 CHLOR 102 -- 105 CO2 22 -- 19* BUN 10 -- 4* CREAT 0.72* -- 0.56* GLUC 124* -- 119* ANION 8* -- 12 CA 7.4* -- 7.4* ALB -- 1.8* 1.7* AST -- 16 -- ALT -- 7* -- ALKPHOS -- 45 43 TBILI -- 0.2 0.2 WBC 9.47 -- 8.69 HB 7.5* -- 8.0* HCT 24.4* -- 25.2* PLT 441* -- 490* Physical Exam: GENERAL: No distress, Alert NEURO: AANDO, CN II-XII grossly intact HEENT: normocephalic, atraumatic LUNGS: Unlabored breathing, equal chest rise bilaterally CARDIAC: Regular rate, warm and well perfused distal extremities ABDOMEN: Soft, appropriately TTP, Midline with [place], c/d/I. EXTREMITIES: LEDEZMA, No deformities, No edema SKIN: Skin color, texture, turgor normal, No rashes or lesions ASSESSMENT AND PLAN: Assessment Active Hospital Problems Diagnosis Date Noted Colonic mass 10/17/2023 Abcess of tongue 10/18/2023 Assessment: 63 year old male with a PMH of COPD and hypertension who presented (more content not included)... [facility] 10-22-2023 Note HNO ID: [id number] Author: Alice Gresham RN Service: Care Management Author Type: Registered Nurse Type: Care Mgt Initial Assessment Filed: 10/22/2023 3:15 PM Note Text: CARE MANAGEMENT: ASSESSMENT AND DISCHARGE PLAN SERVICE DATE: October 22, 2023 SERVICE TIME: 3:14 PM PCP: No primary care provider on file. Primary Contact: Extended Emergency Contact Information Primary Emergency Contact: Luciano Payne Mobile Relation: Brother Admission Status: Inpatient Insurance Provider: [facility] [employer] MEDICAID [facility] Discharge Planning requested by: Per Department Practice Potential Transition Plans No Services Indicated Advance Directives Current Advance Directive: None Wood Last Maker Attempted to Assist with AD Completion: Yes Action: Education Provided Current Living Arrangements and Support Lives with: Alone Type of Residence: Private Residence (House) Does the patient have to climb stairs at home?: Yes Support: Family members, Friends/neighbors How do you manage to accomplish the following: Independent: Ambulation;Bathe/Shower;Dress;Me als/Meal Prep;Going to the bathroom;Medication Management;Transportation to appointments/community Current Services/Equipment Discharge Planning Patient Goal(s): Be able to go home, General wellness [place] Choice Explained: [place] Given: No Reason Not Given: No placements necessary Are you interested in bedside delivery of your medications? No Discharge Planning Participant(s): Patient Patient/Family Comments: Caregiver Assessment: Caregiver is ready, willing and able to meet the patient's needs as recommended by the inter-professional team: No Caregiver needed Transport at Discharge: Transportation Arrangements: Car Needs Prior to Discharge: Needs Prior to Discharge: To Be Determined Post-Acute Discharge Plan: From home alone, independent in activities of daily living, plan return home at discharge. Family to transport home. Physical and occupational therapy pending. SIGNATURE: Alice Gresham RN PATIENT NAME: CHRISTOPHER Payne DATE: October 22, 2023 TIME: 3:14 PM CONTACT #: [phone] [facility] 10-22-2023 Note HNO ID: [id number] Author: Catalina Garcia APRN.CNP Service: Gastroenterology Author Type: Nurse Practitioner Type: Progress Notes Filed: 10/22/2023 1:35 PM Note Text: GI CONSULT PROGRESS NOTE SERVICE DATE: 10/22/2023 SERVICE TIME: 1308 CONSULTING SERVICE: Gastroenterology Subjective INTERVAL HPI: GI following for colon mass. 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 He underwent sigmoidectomy, abscess drainage, colorectal 32-mm endo anastomosis per surgery team 10/21/23. Pathology and cultures in process. He feels good overall today. He reports mild abdominal pain with movement. He believes he has passed flatus. However, he is not sure. He has not had a BM post operatively. He denies fevers. He denies nausea. Overall, feeling well. Current Facility-Administered Medications Medication Dose Route Frequency ondansetron 4 mg tab(s) (ZOFRAN) 4 mg ORAL q 6 H PRN Or ondansetron (PF) 4 mg injection (ZOFRAN) 4 mg INTRAVENOUS q 6 H PRN morphine 2 mg injection 2 mg INTRAVENOUS q 4 H PRN acetaminophen 975 mg tab(s) (TYLENOL) 975 mg ORAL QID NaCl 0.9% iv flush bag 20 mL INTRAVENOUS PRN amLODIPine 2.5 mg tab(s) (NORVASC) 2.5 mg ORAL DAILY metoprolol succinate ER 25 mg tab(s) (TOPROL XL) 25 mg ORAL DAILY mometasone-formoterol 200-5 mcg/actuation 2 Puff inhaler (DULERA) 2 Puff INHALATION BID albuterol 2.5 mg /3 mL (0.083 %) 2.5 mg (PROVENTIL) 2.5 mg INHALATION q 6 H PRN tamsulosin 0.4 mg cap(s) (FLOMAX) 0.4 mg ORAL DAILY trospium 20 mg tab(s) (SANCTURA) 20 mg ORAL BID AC enoxaparin 40 mg injection (LOVENOX) 40 mg SUBCUTANEOUS q 24 HR traMADol 50 mg tab(s) (ULTRAM) 50 mg ORAL q 6 H PRN piperacillin-tazobactam iv piggyback 3.375 g in dextrose (iso-osmotic) 50 mL (ZOSYN) 3.375 g INTRAVENOUS q 6 H ipratropium-albuterol 3 mL nebulizer solution (DUONEB) 3 mL INHALATION q 4 H PRN keTORolac 15 mg injection (Toradol) 15 mg INTRAVENOUS q 6 H cyclobenzaprine 5 mg tab(s) (FLEXERIL) 5 mg ORAL TID dextrose 5% in NaCl 0.45% iv infusion 125 mL/hr INTRAVENOUS CONTINUOUS Objective PHYSICAL EXAM: Physical Exam Performed: Physical Exam Vitals reviewed. Constitutional: General: He is not in acute distress. HENT: Head: Normocephalic and atraumatic. Mouth/Throat: Mouth: Mucous membranes are dry. Eyes: Extraocular Movements: Extraocular movements intact. Conjunctiva/sclera: Conjunctivae normal. Cardiovascular: Rate and Rhythm: Tachycardia present. Pulmonary: Effort: Pulmonary effort is normal. No respiratory distress. Abdominal: General: There is no distension. Palpations: Abdomen is soft. Tenderness: There is abdominal tenderness. There is no guarding or rebound. Comments: Midline incision covered with dressing, dry and intact Musculoskeletal: General: Normal range of motion. Skin: General: Skin is warm and dry. Neurological: General: No focal deficit present. Mental Status: He is alert and oriented to person, place, and time. Psychiatric: Mood and Affect: Mood normal. Behavior: Behavior normal. BP 96/64 Pulse 105 Temp (Src) 97.9 (Oral) Resp 18 Ht 5' 8 (1.73m) Wt 144 lb 6.4 oz (65.5kg) SpO2 95% BMI 21.96 kg/(m2). O2 Therapy: Room Air DATA: Diagnostic tests reviewed for today's visit: Most recent labs WBC (k/uL) Date Value 10/22/2023 8.69 RBC (m/uL) Date Value 10/22/2023 3.03 (L) Hemoglobin (g/dL) Date Value 10/22/2023 8.0 (L) Hematocrit (%) Date Value 10/22/2023 25.2 (L) MCV (fL) Date Value 10/22/2023 83.2 MCH (pg) Date Value 10/22/2023 26.4 MCHC (g/dL) Date Value 10/22/2023 31.7 RDW-CV (%) Date Value 10/22/2023 15.9 (H) Platelet Count (k/uL) Date Value 10/22/2023 490 (H) MPV (fL) Date Value 10/22/2023 9.1 Glucose (mg/dL) Date Value 10/22/2023 119 (H) BUN (mg/dL) Date Value 10/22/2023 4 (L) Creatinine (mg/dL) Date Value 10/22/2023 0.56 (L) Sodium (mmol/L) Date Value 10/22/2023 136 Potassium (mmol/L) Date Value 10/22/2023 4.1 Chloride (mmol/L) Date Value 10/22/2023 105 CO2 (mmol/L) Date Value 10/22/2023 19 (L) Protein, Total (g/dL) Date Value 10/22/2023 5.1 (L) Albumin (g/dL) Date Value 10/22/2023 1.8 (L) Calcium, Total (mg/dL) Date Value 10/22/2023 7.4 (L) Alkaline Phosphatase (U/L) Date Value 10/22/2023 45 Bilirubin, Total (mg/dL) Date Value 10/22/2023 0.2 AST (U/L) Date Value 10/22/2023 16 ALT (U/L) Date Value 10/22/2023 7 (L) Colonoscopy 10/20/2023: - Preparation of the colon was poor. - Likely malignant partially obstructing tumor in the sigmoid colon. Biopsied. - One 10 mm polyp at the recto-sigmoid colon. Resection not attempted. - One 8 mm polyp in the rectum (more content not included)... [facility] 10-22-2023 Note HNO ID: [id number] Author: Antonia Cook MD Service: General Surgery Author Type: Resident Type: Progress Notes Filed: 10/22/2023 8:20 AM Note Text: Attestation signed by Anatoly Matias MD at 10/23/2023 2:47 PM Waiting for return of bowel function. Her reports to me that his pain is improving everyday and strating to feel grumbling of intestinal motility Anatoly Matias MD Emergency General Surgery Progress Note SERVICE DATE: October 22, 2023 Emergency General Surgery Service Pager: For questions or concerns Mon-Fri 6a-5p please page [phone]. After 5pm and on Weekends and Holidays, please page [phone] if in ICU or [phone] if on RNF. SUBJECTIVE: S/P open left hemicolectomy with colorectal anastomosis. Patient reports mild abdominal pain, but no nausea, vomiting, fevers or chills. Denies any flatus or BM. OBJECTIVE: Vitals: Temp (24hrs), Av.3 ?C (97.4 ?F), Min:35.8 ?C (96.4 ?F), Max:36.7 ?C (98.1 ?F) BP 96/72 Pulse 87 Temp 36.4 ?C (97.5 ?F) (Oral) Resp 20 Ht 172.7 cm (5' 8 ) Wt 65.5 kg (144 lb 6.4 oz) SpO2 96% BMI 21.96 kg/m? O2 Therapy: Room Air IANDO: Date 10/21/23699 - 10/22/23 0610/22/23 07 - 10/23/23 0659 Shift 9830-4215 7076-2869 1895-6690 24 Hour Total 3888-0308 2750-8149 9942-6709 24 Hour Total INTAKE IV 2660 2660 Volume (mL) (piperacillin-tazobactam iv piggyback 3.375 g in dextrose (iso-osmotic) 50 mL (ZOSYN)) 100 100 Volume (mL) (BUPivacaine liposome (PF) 20 mL, bupivacaine (PF) 0.25 % (2.5 mg/mL) 30 mL in NaCl 0.9% 10 mL) 60 60 Volume (mL) (lactated ringers iv infusion) 1200 1200 Volume (mL) (NaCl 0.9% iv infusion) 1300 1300 Shift Total 2660 2660 OUTPUT Urine 200 750 950 OR Urine Output 200 200 Output ( Indwelling Urinary Catheter 10/21/23 1141 Sandhu 18 Fr) 750 750 Blood 100 100 Estimated Blood loss 100 100 Shift Total 781 488 9583 Weight (kg) 65.5 65.5 65.5 65.5 65.5 65.5 65.5 65.5 MEDICATIONS Current Facility-Administered Medications Medication Dose Route Frequency tamsulosin 0.4 mg cap(s) (FLOMAX) 0.4 mg ORAL DAILY trospium 20 mg tab(s) (SANCTURA) 20 mg ORAL BID AC enoxaparin 40 mg injection (LOVENOX) 40 mg SUBCUTANEOUS q 24 HR traMADol 50 mg tab(s) (ULTRAM) 50 mg ORAL q 6 H PRN piperacillin-tazobactam iv piggyback 3.375 g in dextrose (iso-osmotic) 50 mL (ZOSYN) 3.375 g INTRAVENOUS q 6 H ipratropium-albuterol 3 mL nebulizer solution (DUONEB) 3 mL INHALATION q 4 H PRN keTORolac 15 mg injection (Toradol) 15 mg INTRAVENOUS q 6 H cyclobenzaprine 5 mg tab(s) (FLEXERIL) 5 mg ORAL TID mometasone-formoterol 200-5 mcg/actuation 2 Puff inhaler (DULERA) 2 Puff INHALATION BID albuterol 2.5 mg /3 mL (0.083 %) 2.5 mg (PROVENTIL) 2.5 mg INHALATION q 6 H PRN amLODIPine 2.5 mg tab(s) (NORVASC) 2.5 mg ORAL DAILY metoprolol succinate ER 25 mg tab(s) (TOPROL XL) 25 mg ORAL DAILY ondansetron 4 mg tab(s) (ZOFRAN) 4 mg ORAL q 6 H PRN Or ondansetron (PF) 4 mg injection (ZOFRAN) 4 mg INTRAVENOUS q 6 H PRN morphine 2 mg injection 2 mg INTRAVENOUS q 4 H PRN acetaminophen 975 mg tab(s) (TYLENOL) 975 mg ORAL QID NaCl 0.9% iv flush bag 20 mL INTRAVENOUS PRN Labs: Recent Labs 10/22/23 0654 10/21/23 2341 NA 136 137 K 4.1 4.1 CHLOR 105 107* CO2 19* 18* BUN 4* 3* CREAT 0.56* 0.51* GLUC 119* 123* ANION 12 12 CA 7.4* 7.4* WBC 8.69 9.30 HB 8.0* 8.0* HCT 25.2* 26.1* PLT 490* 470* Physical Exam: GENERAL: No distress, Alert NEURO: AANDO, CN II-XII grossly intact HEENT: normocephalic, atraumatic LUNGS: Unlabored breathing, equal chest rise bilaterally CARDIAC: Regular rate, warm and well perfused distal extremities ABDOMEN: Soft, appropriately TTP, Midline incision covered with dressing, no strike through EXTREMITIES: LEDEZMA, No deformities, No edema SKIN: Skin color, texture, turgor normal, No rashes or lesions ASSESSMENT AND PLAN: Assessment Active Hospital Problems Diagnosis Date Noted Colonic mass 10/17/2023 Abcess of tongue 10/18/2023 Assessment: 63 year old male with a PMH of COPD and hypertension who presented for progressively worsening abdominal pain, fatigue, and changes in stool habits who presents with descending colon mass associated with contained microperforation and abscess concerning for undiagnosed colon cancer. Hospital Course/Operations/Procedures: 10/21/2023 Procedure(s): COLECTOMY SIGMOID W/ COLORECTAL ANASTOMOSIS CYSTOSCOPY WITH STENT PLACEMENT Colon mass concerning for carcinoma with contained microperforation and abscess - S/P open left hemicolectomy with colorectal anastomosis - Plan for dressing take down tomorrow - AROBF - Pain and nausea control PRN - Surgical pathology pending - Antibiotics: Zosyn Discussed with attending: Dr. Matias SIGNATURE: Summer Aldabb (more content not included)... [facility] 10-21-2023 Note HNO ID: [id number] Author: Christopher Silva MD Service: Anesthesiology Author Type: Physician Type: Anesthesia Procedure Notes Filed: 10/21/2023 11:26 AM Note Text: ANESTHESIOLOGY PROCEDURE NOTE Peripheral Nerve Block General Information Procedure Start Time/Medication Administration: 10/21/2023 10:40 AM Patient location during procedure: OR Timeout Performed Pre-procedure: timeout performed Consent Obtained: Yes Patient identity confirmed: arm band and care deboning team leader Reason for block: post-op pain management/at surgeon's request Staffing Anesthesiologist: Christopher Silva MD Performed by: anesthesiologist Preparation Sterility Preparation: hand hygiene performed prior to procedure, sterile gloves, drapes, and procedure tray, surgical cap used, mask used, skin prep agent completely dried prior to procedure Site Prep: Chloraprep Pre-Procedure Neuro Exam Location: ABDOMEN Procedure Details Patient Position: supine Monitoring: Pulse OX, EKG and NIBP Block Type Trunk: rectus sheath block and TAP block Laterality: bilateral Injection Technique: single-shot Ultrasound Guided: Yes Image in Chart: no Needle Needle Type: echogenic and sharp Needle Gauge: 21 G Needle Length: 110 mm Needle Localization: anatomical landmarks and ultrasound Assessment Injection assessment: negative aspiration, no paresthesia on injection, incremental injection and local visualized surrounding nerve on ultrasound Post-Procedure Neuro Exam Expected Regional Anesthesia: Yes Comments Custom Mixture: 20ml Exparel, 30ml 0.25% Bupivacaine, 10ml 0.9% NS L TAP 20ml, L rectus 10ml R TAP 20ml, R rectus 10ml SIGNATURE: Christopher Silva MD PATIENT NAME: CHRISTOPHER Payne DATE: October 21, 2023 TIME: 11:25 AM CSN: [id number] [facility] 10-21-2023 Note HNO ID: [id number] Author: Anna Jean APRN.RENAL TECHNICIAN Service: ? Author Type: Nurse [employer] Information [employer] Officer Type: Anesthesia Procedure Notes Filed: 10/21/2023 10:55 AM Note Text: ANESTHESIOLOGY PROCEDURE NOTE PIV General Information Procedure Start Time/Medication Administration: 10/21/2023 10:45 AM Patient Location: OR Staffing RENAL TECHNICIAN: Anna Jean APRN.RENAL TECHNICIAN Performed by: RENAL TECHNICIAN Preparation Sterility Preparation: hand hygiene performed prior to procedure, surgical cap used, mask used, skin prep agent completely dried prior to procedure Sterility Technique Not Completely Performed Due to Extreme Emergency: No Site Prep: Chloraprep Procedure Details Indication: need for IV access Needle Size/Type: 18 gauge angiocath Orientation: Right Location: Hand Imaging Guidance Used: No SIGNATURE: Anna Jean APRN.CRNA PATIENT NAME: CHRISTOPHER Payne DATE: October 21, 2023 TIME: 10:54 AM CSN: [id number] [facility] 10-21-2023 Note HNO ID: [id number] Author: Anna Jean APRN.RENAL TECHNICIAN Service: ? Author Type: Nurse [employer] Officer Type: Anesthesia Procedure Notes Filed: 10/21/2023 10:54 AM Note Text: ANESTHESIOLOGY PROCEDURE NOTE Airway General Information Procedure Start Time/Medication Administration: 10/21/2023 10:34 AM Patient location during procedure: OR Timeout Performed Pre-procedure: timeout performed Consent Obtained: Yes Patient identity confirmed: arm band and patient Staffing RENAL TECHNICIAN: Anna Jean APRN.RENAL TECHNICIAN Performed by: RAJIV Indications and Patient Condition Indications for airway management: anesthesia Preoxygenated: yes anesthesia circuit Patient position: sniffing Method: asleep Cricoid Pressure: Yes Manual In-Line Stabilization: No Difficult Mask: No Final Airway Details Final airway type: endotracheal airway Final Endotracheal Airway: ETT Cuffed: yes Successful intubation technique: video laryngoscopy Devices used: intubating stylet and Howell Endotracheal tube insertion site: oral Blade: Sumeet Blade size: #3 ETT size (mm): 8.0 Measured from: lips Measurement (cm): 22 Placement verified by: capnometry Cormack-Lehane Classification: grade I - full view of glottis Number of attempts at approach: 1 Airway not difficult SIGNATURE: Anna Jean APRN.CRNA PATIENT NAME: CHRISTOPHER Payne DATE: October 21, 2023 TIME: 10:53 AM CSN: [id number] [facility] 10-21-2023 Note HNO ID: [id number] Author: Corine Eckert, RADU Service: ? Author Type: Registered Nurse Type: Nursing Progress Note Filed: 10/21/2023 9:07 AM Note Text: 1200 dose of Zosyn sent to OR with patient, per request [facility] 10-20-2023 Note HNO ID: [id number] Author: Mayelin Hinson LSW Service: Care Management Author Type: Pusher Runner Type: Care Mgt Progress Note Filed: 10/20/2023 4:12 PM Note Text: CARE MANAGEMENT PROGRESS NOTE SERVICE DATE: 10/20/2023 SERVICE TIME: 4:11 PM LOS: 3 days SW attempted to complete initial assessment today, but patient off the floor most of the day in Endo. Per chart review, surgery tentatively scheduled for tomorrow. CM/SW will continue to follow for discharge planning. SIGNATURE: MARIBEL Hodges PATIENT NAME: CHRISTOPHER Payne DATE: October 20, 2023 TIME: 4:11 PM PAGER/CONTACT #: [phone] [facility] 10-20-2023 Note HNO ID: [id number] Author: Ashley Prasad APRN.CNP Service: General Surgery Author Type: Nurse Practitioner Type: Progress Notes Filed: 10/20/2023 2:45 PM Note Text: Emergency General Surgery Progress Note SERVICE DATE: October 20, 2023 Emergency General Surgery Service Pager: For questions or concerns Mon-Fri 6a-5p please page [phone]. After 5pm and on Weekends and Holidays, please page [phone] if in ICU or [phone] if on RNF. SUBJECTIVE: HPI: Mr. Payne is a 63 yr old male with PMH of COPD (no home oxygen) who presented for LLQ abdominal pain, CT imaging revealed a 7 cm soft tissue mass in the descending colon as well as fat stranding in his left paracolic gutter with what appears to be a sinus tract leading to a 4 cm abscess cavity. Gastroenterology consulted, colonoscopy with biopsy scheduled 10/20. Mr. Payne is alert, denies pain or nausea. Tolerated bowel prep, clear yellow output at end of prep. Understands surgery is tentatively scheduled tomorrow. OBJECTIVE: Vitals: Temp (24hrs), Av.4 ?C (97.5 ?F), Min:36.2 ?C (97.2 ?F), Max:36.6 ?C (97.9 ?F) BP 119/85 Pulse 93 Temp 36.6 ?C (97.9 ?F) (Axillary) Resp 20 Ht 172.7 cm (5' 8 ) Wt 65.5 kg (144 lb 6.4 oz) SpO2 100% BMI 21.96 kg/m? O2 Therapy: Room Air IANDO: Date 10/19/23 07 - 10/20/23 0659 10/20/23 07 - 10/21/23 0659 Shift 3778-6065 8602-9622 7022-2865 24 Hour Total 5952-3814 9146-3736 5981-6717 24 Hour Total INTAKE Shift Total OUTPUT # of BMs Number of BMs 1 x 1 x Shift Total Weight (kg) 65.7 65.7 65.5 65.5 65.5 65.5 65.5 65.5 MEDICATIONS Current Facility-Administered Medications Medication Dose Route Frequency potassium chloride iv piggyback 20 mEq/100 mL 20 mEq INTRAVENOUS q2h mometasone-formoterol 200-5 mcg/actuation 2 Puff inhaler (DULERA) 2 Puff INHALATION BID albuterol 2.5 mg /3 mL (0.083 %) 2.5 mg (PROVENTIL) 2.5 mg INHALATION q 6 H PRN enoxaparin 40 mg injection (LOVENOX) 40 mg SUBCUTANEOUS q 24 HR lactated ringers iv infusion 100 mL/hr INTRAVENOUS CONTINUOUS amLODIPine 2.5 mg tab(s) (NORVASC) 2.5 mg ORAL DAILY metoprolol succinate ER 25 mg tab(s) (TOPROL XL) 25 mg ORAL DAILY ondansetron 4 mg tab(s) (ZOFRAN) 4 mg ORAL q 6 H PRN Or ondansetron (PF) 4 mg injection (ZOFRAN) 4 mg INTRAVENOUS q 6 H PRN morphine 2 mg injection 2 mg INTRAVENOUS q 4 H PRN oxyCODONE IR 5-10 mg tab(s) (ROXICODONE) 5-10 mg ORAL q 4 H PRN acetaminophen 975 mg tab(s) (TYLENOL) 975 mg ORAL QID piperacillin-tazobactam iv piggyback 3.375 g in dextrose (iso-osmotic) 50 mL (ZOSYN) 3.375 g INTRAVENOUS q 6 H NaCl 0.9% iv flush bag 20 mL INTRAVENOUS PRN Labs: Recent Labs 10/19/23 2236 10/18/23 2223 NA 136 133* K 3.2* 3.1* CHLOR 101 99 CO2 18* 22 BUN 5* 5* CREAT 0.66* 0.61* GLUC 80 88 ANION 17 12 CA 7.8* 7.7* MG -- 1.8 WBC 8.11 8.76 HB 9.4* 9.1* HCT 29.2* 27.9* PLT 579* 507* Physical Exam: GENERAL: No distress, Alert NEURO: AANDO, CN II-XII grossly intact HEENT: normocephalic, atraumatic LUNGS: Unlabored breathing, equal chest rise bilaterally CARDIAC: Regular rate, warm and well perfused distal extremities ABDOMEN: Soft, non-tender, non-distended EXTREMITIES: LEDEZMA, No deformities, No edema SKIN: Skin color, texture, turgor normal, No rashes or lesions ASSESSMENT AND PLAN: Assessment Active Hospital Problems Diagnosis Date Noted Colonic mass 10/17/2023 Abcess of tongue 10/18/2023 Assessment: 63 year old male with a PMH of COPD and hypertension who presented for progressively worsening abdominal pain, fatigue, and changes in stool habits who presents with descending colon mass associated with contained microperforation and abscess concerning for undiagnosed colon cancer. Hospital Course/Operations/Procedures: * No surgery found * Colon mass concerning for carcinoma with contained microperforation and abscess - NPO/IVF - GI following, colonoscopy today. - CEA 5.2 - CT chest with no mets but severe emphysema - hx of stage 5 COPD - PFTs 03/2022 FEV1 31% predicted - cont dulera, albuterol - IS and Ez PEP - plan for OR on Sunday 10/21 pending findings of GI colonoscopy - IV abx- Zosyn for tx of abscess. No drainage - pain and nausea control - LVX - IS, OOB HypoK+ - K+ 3.2 - IV replacement Discussed with attending: Dr. Matias Addendum: 1445: - Urology consult for neyda-operative L ureteral stent placement. - Oncology consult. Portions of the physical exam and assessment/plan of the previous day's note has been copied over. However changes were made to reflect the care plan for today, October 20, 2023 SIGNATURE: Ashley Prasad APRN.CONCIERGE MANAGER PATIENT NAME: CHRISTOPHER Payne DATE: October 20, 2023 TIME: 627 Pager: [phone] Emergency General Surgery Service Pager: For questions or concerns Mon-Fri 6a-5p please page [phone]. After 5pm and on Weekends and Holidays, please page [phone] if in ICU or [phone] if on RNF. [facility] 10-19-2023 Note HNO ID: [id number] Author: Ashley Lucas DO Service: General Surgery Author Type: Resident Type: Progress Notes Filed: 10/19/2023 11:25 AM Note Text: Attestation signed by Anatoly Matias MD at 10/19/2023 1:09 PM ==== GENERAL SURGERY STAFF: I have personally seen and evaluated this patient and participated in the aguilar components of this encounter. I discussed the management of this case with the surgery resident team and independently confirmed the findings and plan of care as documented either attached or in their separate note from today. Any corrections or additional notes are made as needed. Active Hospital Problems Diagnosis Date Noted Colonic mass 10/17/2023 Abcess of tongue 10/18/2023 Assessment and Plan: Likely perforated colon cancer Colonoscopy to eval remaining colon Plan of care visit completed with: Provider, RN, Patient Anatoly Matias MD, FACS Section of Trauma, Surgery Critical Care, and Acute Care Surgery Pager: [phone] Office: [phone] October 19, 2023 ==== Emergency General Surgery Progress Note SERVICE DATE: October 19, 2023 Emergency General Surgery Service Pager: For questions or concerns Mon-Fri 6a-5p please page [phone]. After 5pm and on Weekends and Holidays, please page [phone] if in ICU or [phone] if on RNF. SUBJECTIVE: Patient reports pain well controlled. Having small amounts of stool. Planning for bowel prep today and colonoscopy tomorrow, 10/20. OBJECTIVE: Vitals: Temp (24hrs), Av.4 ?C (97.6 ?F), Min:36 ?C (96.8 ?F), Max:36.7 ?C (98.1 ?F) BP 127/83 Pulse 87 Temp 36.3 ?C (97.3 ?F) (Oral) Resp 18 Ht 172.7 cm (5' 8 ) Wt 65.7 kg (144 lb 13.5 oz) SpO2 98% BMI 22.02 kg/m? O2 Therapy: Room Air IANDO: Date 10/18/23 07 - 10/19/23 0659 10/19/23699 - 10/20/23 0659 Shift 7878-5059 4049-0069 3585-2623 24 Hour Total 9510-2595 4391-7711 4192-6794 24 Hour Total INTAKE Shift Total OUTPUT Urine 1 1 Void (ml) 1 1 Urine Not Saved. 3 x 3 x # of BMs Number of BMs 1 x 1 x Shift Total 1 1 Weight (kg) 65.7 65.7 65.7 65.7 65.7 65.7 65.7 65.7 MEDICATIONS Current Facility-Administered Medications Medication Dose Route Frequency potassium chloride iv piggyback 20 mEq/100 mL 20 mEq INTRAVENOUS q2h peg-electrolyte soln 4,000 mL oral liquid (NULYTELY) 4,000 mL ORAL ONCE enoxaparin 40 mg injection (LOVENOX) 40 mg SUBCUTANEOUS q 24 HR mometasone 220 mcg/ actuation (14) 2 Puff inhaler (ASMANEX) 2 Puff INHALATION BID amLODIPine 2.5 mg tab(s) (NORVASC) 2.5 mg ORAL DAILY metoprolol succinate ER 25 mg tab(s) (TOPROL XL) 25 mg ORAL DAILY ondansetron 4 mg tab(s) (ZOFRAN) 4 mg ORAL q 6 H PRN Or ondansetron (PF) 4 mg injection (ZOFRAN) 4 mg INTRAVENOUS q 6 H PRN morphine 2 mg injection 2 mg INTRAVENOUS q 4 H PRN oxyCODONE IR 5-10 mg tab(s) (ROXICODONE) 5-10 mg ORAL q 4 H PRN acetaminophen 975 mg tab(s) (TYLENOL) 975 mg ORAL QID piperacillin-tazobactam iv piggyback 3.375 g in dextrose (iso-osmotic) 50 mL (ZOSYN) 3.375 g INTRAVENOUS q 6 H NaCl 0.9% iv flush bag 20 mL INTRAVENOUS PRN Labs: Recent Labs 10/18/23 2223 10/18/23 1222 10/17/23 2322 NA 133* -- 131* K 3.1* 3.7 2.8* CHLOR 99 -- 95* CO2 22 -- 22 BUN 5* -- 4* CREAT 0.61* -- 0.68* GLUC 88 -- 98 ANION 12 -- 14 CA 7.7* -- 7.7* MG 1.8 -- -- WBC 8.76 -- 10.38 HB 9.1* -- 9.0* HCT 27.9* -- 27.4* PLT 507* -- 489* Physical Exam: GENERAL: No distress, Alert NEURO: AANDO, CN II-XII grossly intact HEENT: normocephalic, atraumatic LUNGS: Unlabored breathing, equal chest rise bilaterally CARDIAC: Regular rate, warm and well perfused distal extremities ABDOMEN: Soft, non-tender, non-distended EXTREMITIES: LEDEZMA, No deformities, No edema SKIN: Skin color, texture, turgor normal, No rashes or lesions ASSESSMENT AND PLAN: Assessment Active Hospital Problems Diagnosis Date Noted Colonic mass 10/17/2023 Abcess of tongue 10/18/2023 Assessment: 63 year old male with a PMH of COPD and hypertension who presented for progressively worsening abdominal pain, fatigue, and changes in stool habits who presents with descending colon mass associated with contained microperforation and abscess concerning for undiagnosed colon cancer. Hospital Course/Operations/Procedures: * No surgery found * Colon mass concerning for carcinoma with contained microperforation and abscess - Diet: CLD - GI following, C-scope Saturday 10/20. Bowel prep today - CEA 5.2 - CT chest with no mets but severe emphysema - hx of stage 5 COPD - PFTs 03/2022 FEV1 31% predicted - cont dulera, albuterol - IS and Ez PEP - p (more content not included)... [facility] 10-18-2023 Note HNO ID: [id number] Author: Ashley Lucas DO Service: General Surgery Author Type: Resident Type: Progress Notes Filed: 10/18/2023 10:34 AM Note Text: Attestation signed by Anatoly Matias MD at 10/18/2023 4:24 PM ==== GENERAL SURGERY STAFF: I have personally seen and evaluated this patient and participated in the aguilar components of this encounter. I discussed the management of this case with the surgery resident team and independently confirmed the findings and plan of care as documented either attached or in their separate note from today. Any corrections or additional notes are made as needed. Active Hospital Problems Diagnosis Date Noted Colonic mass 10/17/2023 Abcess of tongue 10/18/2023 Assessment and Plan: Colon mass Likely proceeding with endoscopy for planning with patient and family Plan of care visit completed with: Provider, RN, Patient Anatoly Matias MD, FACS Section of Trauma, Surgery Critical Care, and Acute Care Surgery Pager: [phone] Office: [phone] October 18, 2023 ==== Emergency General Surgery Progress Note SERVICE DATE: October 18, 2023 Emergency General Surgery Service Pager: For questions or concerns Mon-Fri 6a-5p please page [phone]. After 5pm and on Weekends and Holidays, please page [phone] if in ICU or [phone] if on RNF. SUBJECTIVE: Patient reports pain well controlled. Had a pencil thin BM this AM. Has never had a colonoscopy. No nausea or emesis. OBJECTIVE: Vitals: Temp (24hrs), Av.8 ?C (98.3 ?F), Min:36.5 ?C (97.7 ?F), Max:37.2 ?C (99 ?F) BP 130/92 Pulse 90 Temp 36.5 ?C (97.7 ?F) (Oral) Resp 20 Ht 172.7 cm (5' 8 ) Wt 65.7 kg (144 lb 13.5 oz) SpO2 94% BMI 22.02 kg/m? O2 Therapy: Room Air IANDO: MEDICATIONS Current Facility-Administered Medications Medication Dose Route Frequency potassium chloride iv piggyback 20 mEq/100 mL 20 mEq INTRAVENOUS q2h ipratropium-albuterol 3 mL nebulizer solution (DUONEB) 3 mL INHALATION q 4 H PRN lactated ringers iv infusion 100 mL/hr INTRAVENOUS CONTINUOUS ondansetron 4 mg tab(s) (ZOFRAN) 4 mg ORAL q 6 H PRN Or ondansetron (PF) 4 mg injection (ZOFRAN) 4 mg INTRAVENOUS q 6 H PRN morphine 2 mg injection 2 mg INTRAVENOUS q 4 H PRN oxyCODONE IR 5-10 mg tab(s) (ROXICODONE) 5-10 mg ORAL q 4 H PRN acetaminophen 975 mg tab(s) (TYLENOL) 975 mg ORAL QID piperacillin-tazobactam iv piggyback 3.375 g in dextrose (iso-osmotic) 50 mL (ZOSYN) 3.375 g INTRAVENOUS q 6 H NaCl 0.9% iv flush bag 20 mL INTRAVENOUS PRN Labs: Recent Labs 10/17/23 2322 NA 131* K 2.8* CHLOR 95* CO2 22 BUN 4* CREAT 0.68* GLUC 98 ANION 14 CA 7.7* WBC 10.38 HB 9.0* HCT 27.4* PLT 489* Physical Exam: GENERAL: No distress, Alert NEURO: AANDO, CN II-XII grossly intact HEENT: normocephalic, atraumatic LUNGS: Unlabored breathing, equal chest rise bilaterally CARDIAC: Regular rate, warm and well perfused distal extremities ABDOMEN: Soft, non-tender, non-distended EXTREMITIES: LEDEZMA, No deformities, No edema SKIN: Skin color, texture, turgor normal, No rashes or lesions ASSESSMENT AND PLAN: Assessment Active Hospital Problems Diagnosis Date Noted Colonic mass 10/17/2023 Abcess of tongue 10/18/2023 Assessment: 63 year old male with a PMH of COPD and hypertension who presented for progressively worsening abdominal pain, fatigue, and changes in stool habits who presents with descending colon mass associated with contained microperforation and abscess concerning for undiagnosed colon cancer. Hospital Course/Operations/Procedures: * No surgery found * Colon mass concerning for carcinoma with contained microperforation and abscess - Diet: FLD today 10/18. CLD 10/19 - GI following, C-scope Saturday 10/20 - CEA 5.2 - CT chest pending to r/o mets and given hx of stage 5 COPD - PFTs 03/2022 FEV1 31% predicted - IV abx- Zosyn for tx of abscess. No drainage - pain and nasuea control - LVX - IS, OOB Discussed with attending: Dr. Matias Portions of the physical exam and assessment/plan of the previous day's note has been copied over. However changes were made to reflect the care plan for today, October 18, 2023 SIGNATURE: Ashley Lucas DO PATIENT NAME: CHRISTOPHER Payne DATE: October 18, 2023 TIME: 1029 Pager: [phone] Emergency General Surgery Service Pager: For questions or concerns Mon-Fri 6a-5p please page [phone]. After 5pm and on Weekends and Holidays, please page [phone] if in ICU or [phone] if on RNF. [facility] documented as of this encounter (statuses as of 11/03/2023) [facility]11-17-2023 History of Past illness Narrative* Problem Noted Date Diagnosed Date Resolved Date Colonic mass 10/17/2023 10/29/2023 documented as of this encounter (statuses as of 11/06/2023) [facility]11-17[facility]2023 History of Past illness Narrative* Problem Noted Date Diagnosed Date Resolved Date Colonic mass 10/17/2023 10/29/2023 documented as of this encounter (statuses as of 11/21/2023) [facility] Post-operative state- Primary Other postprocedural status Malignant neoplasm of sigmoid colon (HCC) Malignant neoplasm of sigmoid colon documented in this encounter [facility] Advance Directives No Advanced Directives Records FoundLatest Code Status on File Code Status Date Activated Date Inactivated Comments Full Code 10/19/2023 12:25 PM 10/29/2023 10:45 PM Question Answer Comments Full Code Order Discussed With: Patient Summary Purpose Family History No Family History Records FoundNo Family History Records FoundNo Family History Records Found Additional Source Comments Source Comments (unrecognize d section and content) In the event this informatio n is protected by the Federal Confidentiality of Alcohol and Drug Abuse Patient Records regulations: The Federal rules restrict any use of the information to criminally investigate or prosecute any alcohol or drug abuse patient.[facility] the event this information is protected by the Federal Confidentiality of Alcohol and Drug Abuse Patient Records regulations: The Federal rules restrict any use of the information to criminally investigate or prosecute any alcohol or drug abuse patient.[facility] the event this information is protected by the Federal Confidentiality of Alcohol and Drug Abuse Patient Records regulations: The Federal rules restrict any use of the information to criminally investigate or prosecute any alcohol or drug abuse patient.[facility] the event this information is protected by the Federal Confidentiality of Alcohol and Drug Abuse Patient Records regulations: The Federal rules restrict any use of the information to criminally investigate or prosecute any alcohol or drug abuse patient.[facility] Reason for Visit (unrecogniz ed section and content) Reason Comments Post Op Colectomy, staple re moval Reason Comments Appointment Reason Comments Patient Update (unrecognized sect ion and content) No Status Records FoundNo Status Records FoundNo Status Records Found INFORMATION SOURCE (unrecogn ized section and content) DATE CREATED AUTHOR AUTHOR'S ORGANIZ ATION 12/06/2023 [facility] DATE CREATED AUTHOR AUTHOR'S ORGANIZ ATION 12/10/2023 [facility] Care Teams (unrecognized sec tion and content) FOR RECORDS PERTAINING TO PATIENTS WHO ARE OR HAVE BEEN ENROLLED IN A CHEMICAL DEPENDENCY/SUBSTANCEABUSE PROGRAM, SOME INFORMATION MAY BE OMITTED. This clinical summary was aggregated from multiple sources. Caution should be exercised in using it in the provision of clinical care. This summary normalizes information from multiple sources, and as a consequence, information in this document may materially change the coding, format and clinical context of patient data. In addition, data may be omitted in some cases. CLINICAL DECISIONS SHOULD BE BASED ON THE PRIMARY CLINICAL RECORDS. [facility]. provides no warranty or guarantee of the accuracy or completeness of information in this document.
--- NOTE | 2023-12-19 07:26 | PFT ---
INTRODUCTION: The patient is a 63-year-old male who presents for pulmonary function studies secondary to a diagnosis of COPD. Respiratory therapy reported good patient effort. Bronchodilators were used during testing. INTERPRETATION: Forced expiration spirometry demonstrates the presence of a severe large airways obstructive ventilatory defect. There was a significant response to aerosolized bronchodilators. Spirograms are of good quality but do not plateau indicating slow emptying of the lungs. Body plethysmography was performed and revealed evidence of air trapping. Diffusing capacity by single breath CO is reduced to 40% of predicted. IMPRESSION: Partially reversible severe large airways obstructive ventilatory defect with associated air trapping and symmetric reduction in diffusing capacity.
== END | disposition home or self-care (01) ==
LOC: PSN 09:09
PROVIDERS: PCP Internal Medicine; Referring Provider Internal Medicine Critical Care Medicine; Visit Provider Internal Medicine Critical Care Medicine
DX: J44.9 Chronic obstructive pulmonary disease, unspecified (principal)
CPT/HCPCS: 94060; 94726; 94729

== ENCOUNTER → 2023-12-23 | Outpatient (CLI) | payer MEDICAID, SELFPAY ==
[2023-12-23 13:56] VITALS: PULSE 100; PULSE 102; PULSE 106; PULSE 107; PULSE 111; PULSE 96; PULSE 97; O2SAT 94; O2SAT 95; O2SAT 96; O2SAT 97; O2SAT 98
--- NOTE | 2023-12-24 10:13 | PCM.PSN.6M ---
PSN 6 Minute Walk Test 6 Minute Walk Test 6 Minute Walk Test: 6 Minute Walk Test PSN:6-Minute Walk Test Start: 12/23/23 13:55 Freq: Status: Active Protocol: [id number] Document 12/23/23 13:56 [facility] (Rec: 12/23/23 13:59 [facility] [id number]) 6 Minute Walk Test Date Performed 12/23/23 Time Performed 13:45 Height 5 ft 8 in Weight: 148 lb Weight in Pounds 148.[address]: Neel Car Assistive device used: None Pre-test Oxygen Delivery Method Room Air Pulse Ox 96 Pulse Rate (60-100) 97 Dyspnea Jonh Scale (0-10) 0 1st minute Oxygen Delivery Method Room Air Pulse Ox 98 Pulse Rate (60-100) 97 Dyspnea Ojnh Scale (0-10) 1 Number of Rests Taken 0 2nd minute Oxygen Delivery Method Room Air Pulse Ox 96 Pulse Rate (60-100) 100 Dyspnea Jonh Scale (0-10) 2 Number of Rests Taken 0 3rd minute Oxygen Delivery Method Room Air Pulse Ox 95 Pulse Rate (60-100) 102 H Dyspnea Jonh Scale (0-10) 3 Number of Rests Taken 0 Reported Symptoms Increased Work of Breathing 4th minute Oxygen Delivery Method Room Air Pulse Ox 95 Pulse Rate (60-100) 106 H Dyspnea Jonh Scale (0-10) 3 Number of Rests Taken 0 Reported Symptoms Increased Work of Breathing 5th minute Oxygen Delivery Method Room Air Pulse Ox 94 Pulse Rate (60-100) 107 H Dyspnea Jonh Scale (0-10) 3 Number of Rests Taken 0 Reported Symptoms Increased Work of Breathing 6th minute Oxygen Delivery Method Room Air Pulse Ox 96 Pulse Rate (60-100) 111 H Dyspnea Jonh Scale (0-10) 3 Number of Rests Taken 0 Reported Symptoms Increased Work of Breathing Post-test Oxygen Delivery Method Room Air Pulse Ox 97 Pulse Rate (60-100) 96 Dyspnea Jonh Scale (0-10) 0 Full Laps Walked 14 Partial Lap, Number of Tiles Walked 11 Total Distance Walked (ft) 837 Interpretation Interpretation: The patient ambulated 837 feet over the course of 6 minutes beginning on room air without assistive devices. Pretesting oxygen saturation was noted to be 96% on room air. With ambulation, the tariq oxygen saturation was 94%. There was no significant exertional oxygen desaturation. Recommendations Recommendations: There is no indication for the use of supplemental oxygen at this time.
== END | disposition home or self-care (01) ==
LOC: PSN 13:35
PROVIDERS: PCP Internal Medicine; Referring Provider Internal Medicine Critical Care Medicine; Visit Provider Internal Medicine Critical Care Medicine
DX: J44.9 Chronic obstructive pulmonary disease, unspecified (principal)
CPT/HCPCS: 94618